=== PATIENT | male | born 1935 | race Asian ===

== ENCOUNTER 2017-01-04 09:12 | Inpatient (IN) | payer OTHER, MEDICARE ==
[2017-01-04] MEDS ORDERED: ceFAZolin 2 GM/DEXTROSE 100 ML IV ONE (09:20)
[2017-01-04] MEDS ORDERED: diphenhydrAMINE 25 MG CAP PO ONE ×2 (09:20→10:10)
[2017-01-04] MEDS ORDERED: NS 1,000 ML IV ONE (09:20)
[2017-01-04] MEDS ORDERED: DIAZEPAM 5 MG TAB PO ONE (09:20)
[2017-01-04] MEDS ORDERED: BACITRACIN IRRIGATION/NS 50,000 UNITS/1,000 ML BTL IRR ONE (09:20)
--- NOTE | 2017-01-04 09:56 | CPEKG ---
Heart Rate: 57 RR Interval: 1053 P-R Interval: 168 QRSD Interval: 84 QT Interval: 448 QTC Interval: 437 P [place]: 17 QRS [place]: 7 T Wave [place]: 52 EKG Severity - NORMAL ECG - EKG Impression: SINUS RHYTHM Electronically Signed By: Louie Ann 04-Jan-2017 16:25:36
[2017-01-04] MEDS ORDERED: DIAZEPAM 5 MG TAB ONE (10:11)
[2017-01-04 10:22] LABS: % IMMATURE GRANULYOCYTES 0.4 % (0.0-1.1); ABSOLUTE IMMATURE GRANULOCYTES 0.03 10^3/uL (0.00-0.10); ADD DIFF? NO; ADD MORPH? NO; ADD SCAN? NO; ATYPICAL LYMPHOCYTE FLAG 0 (0-99); FRAGMENT RBC FLAG 0 (0-99); HEMATOCRIT 44.2 % (40.0-51.0); HEMOGLOBIN 15.2 g/dL (13.7-17.5); LEFT SHIFT FLG 10 (0-99); LIPEMIA HEMOLYSIS FLAG 90 (0-99); MEAN CELL HEMOGLOBIN 33.8 pg (27.9-34.1); MEAN CELL HEMOGLOBIN CONCENTR. 34.4 g/dL (32.4-36.7); MEAN CELL VOLUME 98.2 fL (81.5-99.8); PLATELET CLUMPS FLAG 0 (0-99); PLATELET COUNT 238 10^3/uL (150-400); RED CELL DISTRIBUTION WIDTH 12.3 % (11.5-15.2)
[2017-01-04 10:33] LABS: INR 1.04 (0.83-1.16); PROTIME(PATIENT) 13.5 SEC (12.0-15.0)
[2017-01-04 10:36] LABS: ANION GAP 9 mEq/L (8-16); CALCIUM 9.2 mg/dL (8.5-10.4); CARBON DIOXIDE 25 mEq/l (22-31); CHLORIDE 108 mEq/L (97-110); CREATININE 1.1 mg/dL (0.7-1.3); GLOMERULAR FILTRATION RATE > 60; GLUCOSE 102 mg/dL (70-100); POTASSIUM 4.4 mEq/L (3.5-5.2); SODIUM 142 mEq/L (134-144)
[2017-01-04] MEDS ORDERED: MIDAZOLAM 2 MG/2 ML VIAL ONE ×2 (10:48→12:21)
[2017-01-04] MEDS ORDERED: fentaNYL 100 MCG/2 ML INJ ONE ×2 (10:48→12:21)
[2017-01-04] MEDS ORDERED: BUPIVACAINE 0.5% 30 ML SDV ONE ×2 (10:48→12:21)
[2017-01-04] MEDS ORDERED: LIDOCAINE 1% 30 ML SDV ONE ×2 (10:48→12:21)
--- NOTE | 2017-01-04 13:48 | CPEKG ---
Heart Rate: 63 RR Interval: 952 P-R Interval: 176 QRSD Interval: 80 QT Interval: 420 QTC Interval: 430 P [place]: 17 QRS [place]: -9 T Wave [place]: 38 EKG Severity - NORMAL ECG - EKG Impression: SINUS RHYTHM Electronically Signed By: Louie Ann 04-Jan-2017 16:25:40
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
[2017-01-04] MEDS: ACETAMINOPHEN 325 MG TAB PO PRN (20:16)
[2017-01-05 05:06] LABS: % IMMATURE GRANULYOCYTES 0.4 % (0.0-1.1); ABSOLUTE IMMATURE GRANULOCYTES 0.04 10^3/uL (0.00-0.10); ADD DIFF? NO; ADD MORPH? NO; ADD SCAN? NO; ATYPICAL LYMPHOCYTE FLAG 0 (0-99); FRAGMENT RBC FLAG 0 (0-99); HEMATOCRIT 40.5 % (40.0-51.0); HEMOGLOBIN 13.8 g/dL (13.7-17.5); LEFT SHIFT FLG 10 (0-99); LIPEMIA HEMOLYSIS FLAG 90 (0-99); MEAN CELL HEMOGLOBIN 34.3 pg (27.9-34.1); MEAN CELL HEMOGLOBIN CONCENTR. 34.1 g/dL (32.4-36.7); MEAN CELL VOLUME 100.7 fL (81.5-99.8); MEAN PLATELET VOLUME 10.5 fL (8.7-11.7); PLATELET CLUMPS FLAG 0 (0-99); PLATELET COUNT 190 10^3/uL (150-400); RED BLOOD CELL COUNT 4.02 10^6/uL (4.40-6.38); RED CELL DISTRIBUTION WIDTH 12.3 % (11.5-15.2)
[2017-01-05 05:20] LABS: ANION GAP 7 mEq/L (8-16); CALCIUM 8.6 mg/dL (8.5-10.4); CARBON DIOXIDE 25 mEq/l (22-31); CHLORIDE 107 mEq/L (97-110); GLOMERULAR FILTRATION RATE > 60; GLUCOSE 126 mg/dL (70-100); SODIUM 139 mEq/L (134-144)
[2017-01-05] MEDS: ACETAMINOPHEN 325 MG TAB PO PRN ×3 (07:01→18:26)
[2017-01-05] MEDS: ASPIRIN 81 MG CHEWABLE TAB PO SCH (09:28)
[2017-01-05] MEDS: CALCIUM CARBONATE 500 MG TAB PO SCH (09:28)
[2017-01-05] MEDS: CHOLECALCIFEROL VIT D3 1,000 UNITS TAB PO SCH (09:28)
[2017-01-05] MEDS: CYANO/VITAMIN B12 100 MCG TAB PO SCH (09:28)
[2017-01-05] MEDS ORDERED: IOPAMIDOL (ISOVUE 370) 100 ML BTL IV ONE (10:13)
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
[2017-01-05] MEDS: METOPROLOL TARTRATE 25 MG TAB PO SCH ×2 (12:45→20:03)
[2017-01-05] MEDS ORDERED: CEPACOL LOZENGE PO ONE (13:59)
[2017-01-05] MEDS: IBUPROFEN 200 MG TAB PO PRN (20:03)
[2017-01-05] MEDS ORDERED: HYDROCODONE/APAP 5/325 TAB PO PRN (23:45)
[2017-01-05] MEDS: ZOLPIDEM TARTRATE 5 MG TAB PO SCH (23:51)
[2017-01-06] MEDS: IBUPROFEN 200 MG TAB PO PRN (02:26)
[2017-01-06] MEDS: ASPIRIN 81 MG CHEWABLE TAB PO SCH (08:09)
[2017-01-06] MEDS: CHOLECALCIFEROL VIT D3 1,000 UNITS TAB PO SCH (08:09)
[2017-01-06] MEDS: CALCIUM CARBONATE 500 MG TAB PO SCH (08:09)
[2017-01-06] MEDS: METOPROLOL TARTRATE 25 MG TAB PO SCH (08:09)
[2017-01-06] MEDS: CYANO/VITAMIN B12 100 MCG TAB PO SCH (08:09)
[2017-01-06] MEDS ORDERED: ONDANSETRON 4 MG/2 ML VIAL ONE (09:05)
[2017-01-06] MEDS ORDERED: ONDANSETRON 4 MG/2 ML VIAL IVP ONE (10:00)
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
[2017-01-06] MEDS ORDERED: oxyCODONE IR 5 MG TAB PO ONE (11:00)
[2017-01-06] MEDS ORDERED: NS 1,000 ML IV SCH (11:30)
[2017-01-06] MEDS ORDERED: KETOROLAC 30 MG/1 ML SDV IVP ONE ×2 (11:58→15:30)
--- NOTE | 2017-01-06 12:09 | GCON ---
[f rep st] CONSULTATION DATE OF CONSULTATION: 01/06/2017 REFERRING PHYSICIAN: Abhishek Ramon MD ADDITIONAL REFERRING PHYSICIAN: Mason Pedro MD The patient was seen at the request of Dr. Ramon and Dr. Mason Pedro. IMPRESSION: 1. 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 2. Moderate enlargement of the ascending aorta. 3. Status post dual-chamber pacemaker placed by Dr. Ramon for bradyarrhythmia, symptomatic. RECOMMENDATIONS: This is a very pleasant, well informed, and highly functioning gentleman, accompan ied by his family. Had a 45-minute discussion regarding the etiology and management of his thoracic aneurysm. At the present time, it is asymptomatic as you would anticipate. It is somewhat calcifi ed with significant mural thrombus. There are no flow-limiting lesions identified in the arch vesse ls. I advised him that, at that size, there is some 4% to 6% risk of rupture, although given its calcifi ed nature, it may remain relatively stable. I advised him that we would do pelvic CTs to look at hi s access vessels for potential endovascular repair, however I do believe it would require de-branchi ng of the arch through a sternotomy, off pump, as a preparatory procedure, if in fact, he agrees and we choose to offer him surgery. The other option is serial observation, and I will review it with several colleagues to obtain their opinion as well. I did advise him that we would review his echo from [facility] to see if there are any significant cardiac valvular issues, and if we w ere to proceed with any sort of intervention, we would want a left heart catheterization in order to make sure he does not have coronary disease. I suspect the route of least morbidity and mortality would be de-branching and transfemoral endovascular replacement versus extensive proximal descending and transverse arch replacement under circulatory arrest in this 81-year-old gentleman. Again, I w ill seek other opinions from colleagues of [facility] at the [facility]. CHIEF COMPLAINT: This gentleman had a chest x-ray as part of his evaluation and treatment for perma nent pacemaker need. He was noted to have a transverse arch aneurysm on the chest x-ray and CT scan was obtained appropriately. 3D reconstruction does reveal a 4.2 to 4.4 cm ascending aorta, which m aintains that until approximately the left carotid artery, where it begins to dilate out to a maximu m dimension of 6.2 to 6.5 cm, internal versus external dimensions, in the proximal descending thorac ic aorta, before rapidly tapering back down in the proximal to mid descending thoracic aorta, where it measures approximately 3 cm. There is extensive laminated thrombus within the aneurysm. He does have compression of the innominate vein, but no caval syndrome or obstructive venous physiology not ed on his exam. MEDICAL HISTORY: Only positive for a tonsillectomy 40 years ago. SOCIAL HISTORY: He drinks 1-2 drinks per day, either beer or whiskey, and quit smoking 40 years ago and was a moderate smoker prior to that, stopping in his early 40s. He is retired from [employer] business, accompanied by his and 2 daughters, who are very attentive, informed, and have asked appropriate questions. PHYSICAL EXAMINATION: GENERAL: This is a well-developed 81-year-old gentleman, appears markedly yo mainor than stated age. VITAL SIGNS: Blood pressure is 126/86. Respirations 16, O2 saturation 92% on room air. HEENT: Normocephalic. PERRLA, EOMI. NECK: Without bruit, adenopathy or thyromegaly . HEART: Rate is regular. LUNGS: Clear. ABDOMEN: Soft, nontender. Bowel sounds are active. R ECTAL AND GENITAL: Deferred. NEUROLOGIC: He is oriented x3. Mood and affect are appropriate. EX TREMITIES: Pedal pulses were 3+ and symmetrical. Femoral pulses were 3+ and symmetrical. We will obtain a pelvic CT, and review his echo prior to proceeding any further. He can be discharg ed from my perspective, I do not believe beta-blockers in this patient adds any benefit and only cre ates fatigue in him, and so, therefore, I will recommend that we discontinue those. /[id number]/MODL
[2017-01-06] MEDS ORDERED: IOPAMIDOL (ISOVUE 370) 100 ML BTL IV ONE ×2 (12:10→12:57)
[2017-01-06] MEDS ORDERED: ACETAMINOPHEN 325 MG TAB PO PRN (16:40)
[2017-01-06] MEDS: ACETAMINOPHEN/ASA/CAFFEINE 1 EACH TAB PO PRN ×2 (16:51→23:37)
[2017-01-06] MEDS: ZOLPIDEM TARTRATE 5 MG TAB PO SCH (21:32)
[2017-01-06] MEDS: ONDANSETRON 4 MG/2 ML VIAL IVP PRN (21:32)
[2017-01-06] MEDS: FLUTICASONE NASAL 120 SPRAYS/16 GM MDI EACHNARE SCH (23:38)
[2017-01-07] MEDS: ONDANSETRON 4 MG/2 ML VIAL IVP PRN (03:08)
[2017-01-07 03:14] VITALS: RESP 18
[2017-01-07 08:11] VITALS: PULSE 60
[2017-01-07 08:23] LABS: ANION GAP 6 mEq/L (8-16); CALCIUM 8.4 mg/dL (8.5-10.4); CARBON DIOXIDE 24 mEq/l (22-31); CHLORIDE 105 mEq/L (97-110); CREATININE 0.9 mg/dL (0.7-1.3); GLOMERULAR FILTRATION RATE > 60; GLUCOSE 103 mg/dL (70-100); POTASSIUM 4.3 mEq/L (3.5-5.2); SODIUM 135 mEq/L (134-144)
--- NOTE | 2017-01-07 08:38 | CPEKG ---
Heart Rate: 61 RR Interval: 984 P-R Interval: 160 QRSD Interval: 80 QT Interval: 412 QTC Interval: 415 P [place]: 48 QRS [place]: 23 T Wave [place]: 55 EKG Severity - NORMAL ECG - EKG Impression: SINUS RHYTHM Electronically Signed By: Louie Ann 07-Jan-2017 13:21:16
[2017-01-07] MEDS: ACETAMINOPHEN/ASA/CAFFEINE 1 EACH TAB PO PRN ×2 (08:50→14:50)
[2017-01-07] MEDS: CYANO/VITAMIN B12 100 MCG TAB PO SCH (08:50)
[2017-01-07] MEDS: CHOLECALCIFEROL VIT D3 1,000 UNITS TAB PO SCH (08:50)
[2017-01-07] MEDS: CALCIUM CARBONATE 500 MG TAB PO SCH (08:50)
[2017-01-07] MEDS: ASPIRIN 81 MG CHEWABLE TAB PO SCH (08:50)
[2017-01-07] MEDS: FLUTICASONE NASAL 120 SPRAYS/16 GM MDI EACHNARE SCH (08:52)
[2017-01-07] MEDS ORDERED: IOPAMIDOL (ISOVUE 370) 100 ML BTL IV ONE (10:23)
[2017-01-07 11:23] VITALS: BP 122/66; TEMP 97.7; O2SAT 95
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
== END 2017-01-07 15:05 | disposition home or self-care (01) | DRG 244 ==
LOC: FCATH 09:12 → F2W 12:31 → OBSVTOIN 01-05 10:38 → F2W 01-05 22:39
PROVIDERS: ADMIT Internal Medicine Cardiovascular Disease; ATTEND Internal Medicine Cardiovascular Disease
DX: I44.30 Unspecified atrioventricular block (principal); I71.2 Thoracic aortic aneurysm, without rupture; R51 Headache; Z87.891 Personal history of nicotine dependence
CPT/HCPCS: C1769; C1785; C1898; J0690; J1885; J2250; J2405; J3010; Q9967

== ENCOUNTER → 2017-01-09 | Outpatient (CLI) | payer OTHER, MEDICARE ==
--- NOTE | 2017-01-09 14:42 | CPEEG ---
[f rep st] ELECTROENCEPHALOGRAM DATE OF STUDY: 01/09/2017 INTERPRETATION: Normal EEG during wakefulness and sleep. There were no potentially epileptogenic abnormalities present in the recording. REPORT: This EEG contains 10 Hz alpha rhythm in the posterior head regions. There was no abnormal activation at rest or during photic stimulation. Patient became drowsy and fell asleep during the study. There was no abnormal activation during drowsiness, sleep or during times of arousal. /[id number]/MODL MTDD
== END ==
LOC: FCPNEURO 10:47
PROVIDERS: ATTEND Psychiatry & Neurology Neurology
DX: R40.4 Transient alteration of awareness (principal)

== ENCOUNTER → 2017-01-14 | Outpatient (CLI) | payer OTHER, MEDICARE ==
[~2017-01-14] MED LIST: IOPAMIDOL (ISOVUE 370) 100 ML BTL IV ONE
== END ==
LOC: FIMAGING 12:13
PROVIDERS: ATTEND Internal Medicine
DX: R06.02 Shortness of breath (principal); I71.9 Aortic aneurysm of unspecified site, without rupture
CPT/HCPCS: 71275; Q9967

== ENCOUNTER 2017-01-22 12:52 | Inpatient (IN) | payer OTHER, MEDICARE ==
[2017-01-22] MEDS ORDERED: NS 500 ML IV ONE (13:15)
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
--- NOTE | 2017-01-22 13:24 | CPEKG ---
Heart Rate: 60 RR Interval: 1000 P-R Interval: 208 QRSD Interval: 82 QT Interval: 420 QTC Interval: 420 P [place]: -34 QRS [place]: -10 T Wave [place]: 52 EKG Severity - NORMAL ECG - EKG Impression: SINUS RHYTHM Electronically Signed By: Bruce Reardon 22-Jan-2017 13:46:34
[2017-01-22 13:36] LABS: % IMMATURE GRANULYOCYTES 0.7 % (0.0-1.1); ABSOLUTE IMMATURE GRANULOCYTES 0.06 10^3/uL (0.00-0.10); ADD DIFF? NO; ADD MORPH? NO; ADD SCAN? NO; ATYPICAL LYMPHOCYTE FLAG 10 (0-99); FRAGMENT RBC FLAG 0 (0-99); HEMATOCRIT 46.2 % (40.0-51.0); HEMOGLOBIN 15.5 g/dL (13.7-17.5); LEFT SHIFT FLG 0 (0-99); LIPEMIA HEMOLYSIS FLAG 80 (0-99); MEAN CELL HEMOGLOBIN 33.2 pg (27.9-34.1); MEAN CELL HEMOGLOBIN CONCENTR. 33.5 g/dL (32.4-36.7); MEAN CELL VOLUME 98.9 fL (81.5-99.8); MEAN PLATELET VOLUME 9.5 fL (8.7-11.7); PLATELET CLUMPS FLAG 10 (0-99); PLATELET COUNT 279 10^3/uL (150-400); RED BLOOD CELL COUNT 4.67 10^6/uL (4.40-6.38)
[2017-01-22 13:45] LABS: ALANINE AMINOTRANSFERASE 54 IU/L (21-72); ALBUMIN 4.4 g/dL (3.5-5.0); ALKALINE PHOSPHATASE 77 IU/L (38-126); ANION GAP 9 mEq/L (8-16); APTT 27.9 SEC (23.0-38.0); ASPARTATE AMINOTRANSFERASE 29 IU/L (17-59); BILIRUBIN,TOTAL 0.9 mg/dL (0.1-1.4); BILIRUBIN-CONJUGATED 0.5 mg/dL (0.0-0.5); BILIRUBIN-UNCONJUGATED 0.4 mg/dL (0.0-1.1); CALCIUM 9.7 mg/dL (8.5-10.4); CARBON DIOXIDE 26 mEq/l (22-31); CHLORIDE 108 mEq/L (97-110); CREATININE 1.1 mg/dL (0.7-1.3); GLOMERULAR FILTRATION RATE > 60; GLUCOSE 100 mg/dL (70-100); INR 1.01 (0.83-1.16); PROTIME(PATIENT) 13.2 SEC (12.0-15.0); SODIUM 143 mEq/L (134-144); TOTAL PROTEIN 7.6 g/dL (6.3-8.2)
[2017-01-22 13:54] LABS: TROPONIN I < 0.012 ng/mL (0-0.034)
[2017-01-22] MEDS ORDERED: guaiFENesin 600 MG TAB.ER PO PRN (17:47)
[2017-01-22] MEDS ORDERED: ONDANSETRON DISINTEGRATING 4 MG TAB PO PRN (17:52)
[2017-01-22] MEDS ORDERED: ONDANSETRON 4 MG/2 ML VIAL IVP PRN (17:52)
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
[2017-01-23] MEDS ORDERED: ASPIRIN EC 325 MG TAB PO ONE ×2 (06:59→07:30)
[2017-01-23] MEDS ORDERED: DIAZEPAM 5 MG TAB PO ONE (06:59)
[2017-01-23] MEDS ORDERED: NS 1,000 ML IV ONE (06:59)
[2017-01-23] MEDS ORDERED: diphenhydrAMINE 25 MG CAP PO ONE ×2 (06:59→07:30)
[2017-01-23] MEDS ORDERED: FAMOTIDINE 20 MG TAB PO ONE (06:59)
[2017-01-23] MEDS ORDERED: fentaNYL 100 MCG/2 ML INJ ONE (07:25)
[2017-01-23] MEDS ORDERED: LIDOCAINE 1% 300 MG/30 ML SDV ONE (07:25)
[2017-01-23] MEDS ORDERED: MIDAZOLAM 2 MG/2 ML VIAL ONE ×2 (07:25→08:47)
[2017-01-23] MEDS ORDERED: IOPAMIDOL (ISOVUE-370) 150 ML BTL IV ONE ×2 (07:25→08:52)
[2017-01-23] MEDS ORDERED: FAMOTIDINE 20 MG TAB ONE (07:30)
[2017-01-23] MEDS ORDERED: DIAZEPAM 5 MG TAB ONE (07:30)
[2017-01-23] MEDS ORDERED: Herbals/Supplements -Info Only PO SCH (09:00)
[2017-01-23] MEDS ORDERED: ATROPINE SULFATE 1 MG/10 ML SYR ONE (09:31)
[2017-01-23] MEDS ORDERED: ONDANSETRON 4 MG/2 ML VIAL IVP PRN (11:12)
[2017-01-23] MEDS ORDERED: OXYCODONE/APAP 5/325 TAB PO PRN (11:12)
[2017-01-23] MEDS ORDERED: ATROPINE SULFATE 1 MG/10 ML SYR IVP PRN (11:12)
[2017-01-23] MEDS ORDERED: NITROGLYCERIN 0.4 MG BTL SL PRN (11:12)
[2017-01-23] MEDS: ASPIRIN EC 81 MG TAB PO SCH (11:13)
--- NOTE | 2017-01-23 11:47 | GPN ---
[f rep st] PROCEDURE NOTE DATE OF PROCEDURE: 01/23/2017 PROCEDURE PERFORMED: 1. Diagnostic left heart catheterization. 2. Left coronary angiography. 3. Right coronary angiography. 4. Left ventriculogram. 5. Right common femoral artery angiography. INDICATIONS FOR PROCEDURE: This patient is a pleasant 81-year-old gentleman who was recently discov ered to have a large thoracic aortic aneurysm measuring 6.2 cm. Diagnostic left heart catheterizati on in anticipation of surgical repair of his thoracic aortic aneurysm. PROCEDURE IN DETAIL: After informed consent was obtained, the patient was brought to the cardiac ca theterization lab where he was prepped and draped in a sterile fashion. Using 1% lidocaine, the rig ht groin was anesthetized. Using a modified Seldinger technique, a 6-[place] catheter was placed into the right common femoral a rtery without complications. A JL4 catheter was originally used to attempt to cannulate the left ma in unsuccessfully. Ultimately, a JL5 catheter was used to cannulate the left main. Images of the l eft coronary anatomy obtained were in multiple projections. The JL5 catheter was exchanged over a guidewire for a JR4 catheter. JR4 catheter was used to take i mages of the right coronary anatomy in multiple projections. The JR4 catheter was removed over a guidewire. A JL4 catheter was used to cross the aortic valve. LVEDP was assessed. Left ventricular function was evaluated. Angled pigtail catheter was removed o coy a guidewire. Angiography of the right common femoral artery demonstrates appropriately placed c atheter at the proximal third of the femoral head. There is a high bifurcation of the femoral arter y and resultant manual pressure without closure device. FINDINGS: 1. Left main normal size and caliber. It bifurcates into a left anterior descending and left circu mflex coronary artery. There is no evidence of coronary disease within the left main. 2. Left anterior descending artery demonstrates some mild lumen irregularities through the mid segm ent of the vessel. There is a moderate-sized first and second diagonal branch. There is no evidenc e of coronary disease within the diagonal branches. 3. Left circumflex artery is a nondominant vessel. There are mild luminal irregularities within th e mid segment of the circumflex vessel. 4. The right coronary artery is a large caliber dominant vessel that bifurcates into PDA and PLV br anches. There is no evidence of coronary disease within the right coronary artery. HEMODYNAMICS: LVEF 60% to 65%. LVEDP 21 mmHg, 9 mm gradient across the aortic valve. CONCLUSION: 1. Mild luminal irregularities within the left anterior descending and circumflex vessels. 2. No flow-limiting coronary artery disease. 3. No indication for coronary artery bypass grafting during upcoming thoracic aortic aneurysm surge ry. 4. Normal left ventricular function. /[id number]/MODL
[2017-01-23] MEDS ORDERED: NS 500 ML IV ONE (11:58)
[2017-01-23] MEDS ORDERED: NS 1,000 ML IV SCH (12:00)
[2017-01-23] MEDS ORDERED: IOPAMIDOL (ISOVUE 370) 100 ML BTL IV ONE (12:19)
[2017-01-23] MEDS: HYDROCODONE/APAP 5/325 TAB PO PRN (12:57)
[2017-01-23] MEDS ORDERED: NON-FORMULARY NEW DRUG PO PRN (14:37)
[2017-01-23] MEDS: FLUTICASONE NASAL 120 SPRAYS/16 GM MDI EACHNARE SCH (16:42)
[2017-01-23] MEDS: CETIRIZINE 10 MG TAB PO SCH (16:58)
[2017-01-23] MEDS: CHOLECALCIFEROL VIT D3 1,000 UNITS TAB PO SCH (16:58)
[2017-01-24] MEDS: FLUTICASONE NASAL 120 SPRAYS/16 GM MDI EACHNARE SCH (07:23)
[2017-01-24] MEDS: HYDROCODONE/APAP 5/325 TAB PO PRN (07:58)
[2017-01-24] MEDS: CETIRIZINE 10 MG TAB PO SCH (07:59)
[2017-01-24] MEDS: CHOLECALCIFEROL VIT D3 1,000 UNITS TAB PO SCH (07:59)
[2017-01-24] MEDS: ASPIRIN EC 81 MG TAB PO SCH (07:59)
--- NOTE | 2017-01-24 10:58 | SOAPPROG ---
ELIZABETH Progress Note Assessment/Plan: Assessment: Plan: 01/24/17 10:47 multiple visits pt and family, seen in prior consults in and outpatient. [facility] w/ o obs ds, minimal aortic v thickening now L shoulder pain and L facial pain, mild hoarseness, came in through ER w associated hypotension. VSS since admission CTA unchanged but I believe symptoms due to aneurysm d/w L Sveenson at [facility], agrees elephant trunk w subsequent endograft, will perform simultaneously unless unstablr, bleeding, etc the several days later risk of major [employer] injury, 5% offered transfer to [facility] if they prefer advised I have done these procedures successfully but there are people at tertiary care facilities with more experience and would be happy to arrange transfer if that is their risk TEVAR grafts ordered and will be available in OR as will IR/Dr Jackson EEG monitoring arranged Objective: Vital Signs Temp Pulse Resp BP Pulse Ox 37.1 C 60 21 H 120/88 H 98 01/24/17 07:50 01/24/17 07:50 01/24/17 07:50 01/24/17 07:50 01/24/17 07:50 01/23/17 01/24/17 01/25/17 05:59 05:59 05:59 Intake Total 200 440 Balance 200 440 PT 13.2 SEC (12.0-15.0) 01/22/17 12:56 INR 1.01 (0.83-1.16) 01/22/17 12:56 ICD10 Worksheet Patient Problems: Problems Problem Status Onset Hypotension Acute Pre-syncope Acute Pacemaker Acute
--- NOTE | 2017-01-24 11:01 | HOSPPROG ---
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 case discussed w dr pelaez Objective: Vital Signs Temp Pulse Resp BP Pulse Ox 37.1 C 60 21 H 120/88 H 98 01/24/17 07:50 01/24/17 07:50 01/24/17 07:50 01/24/17 07:50 01/24/17 07:50 01/23/17 01/24/17 01/25/17 05:59 05:59 05:59 Intake Total 200 440 Balance 200 440 PT 13.2 SEC (12.0-15.0) 01/22/17 12:56 INR 1.01 (0.83-1.16) 01/22/17 12:56 - Physical Exam Constitutional: no apparent distress, appears nourished Eyes: PERRL, anicteric sclera Ears, Nose, Mouth, Throat: moist mucous membranes, hearing normal Cardiovascular: regular rate and rhythym, no murmur, rub, or gallop Respiratory: no respiratory distress, no rales or rhonchi Gastrointestinal: normoactive bowel sounds, soft, non-tender abdomen Genitourinary: no bladder fullness, No garzon in urethra Skin: warm, normal color Musculoskeletal: full muscle strength, no muscle tenderness Neurologic: AAOx3 ICD10 Worksheet Patient Problems: Problems Problem Status Onset Hypotension Acute Pre-syncope Acute Pacemaker Acute
[2017-01-24 14:14] LABS: HEMOGLOBIN A1C 5.6 % (4.0-6.0)
[2017-01-24] MEDS ORDERED: CHLORHEXIDINE GLUC HIBICLENS 118 ML BTL TP SCH (21:00)
[2017-01-24] MEDS: SENNOSIDES/DOCUSATE SODIUM TAB PO SCH (21:49)
[2017-01-25 04:37] LABS: HEMOGLOBIN 13.7 g/dL (13.7-17.5); MEAN CELL HEMOGLOBIN 33.3 pg (27.9-34.1); MEAN CELL HEMOGLOBIN CONCENTR. 33.4 g/dL (32.4-36.7); MEAN CELL VOLUME 99.5 fL (81.5-99.8); RED BLOOD CELL COUNT 4.12 10^6/uL (4.40-6.38); RED CELL DISTRIBUTION WIDTH 11.9 % (11.5-15.2)
[2017-01-25 04:45] LABS: ANION GAP 9 mEq/L (8-16); CARBON DIOXIDE 27 mEq/l (22-31); CHLORIDE 106 mEq/L (97-110); CREATININE 1.3 mg/dL (0.7-1.3); GLOMERULAR FILTRATION RATE 53; GLUCOSE 91 mg/dL (70-100); POTASSIUM 4.3 mEq/L (3.5-5.2); SODIUM 142 mEq/L (134-144)
[2017-01-25] MEDS ORDERED: NOREPINEPHRINE BITARTRATE 16 MG in NS 250 ML IV ONE (06:00)
[2017-01-25] MEDS ORDERED: INSULIN REGULAR HUMAN 100 UNIT in NS 100 ML IV ONE (06:00)
[2017-01-25] MEDS ORDERED: CITRATE DEXTROSE SOLN 500 ML BAG MISC ONE (06:00)
[2017-01-25] MEDS ORDERED: MANNITOL 25% 12.5 GM/50 ML VIAL IV ONE (06:00)
[2017-01-25] MEDS ORDERED: PHENYLEPHRINE HCL 50 MG in NS 250 ML IV ONE (06:00)
[2017-01-25] MEDS ORDERED: SODIUM BICARBONATE 20 MEQ, LIDOCAINE 1% 10 ML in NORMOSOL-R 1,000 ML MISC ONE (06:00)
[2017-01-25] MEDS ORDERED: ceFAZolin 2 GM/DEXTROSE 100 ML IV ONE (06:00)
[2017-01-25] MEDS ORDERED: AMINOCAPROIC ACID 5 GM/20 ML VIAL IV ONE (06:00)
[2017-01-25] MEDS ORDERED: MILRINONE/DEXTROSE/100 ML BAG IV ONE (06:20)
[2017-01-25] MEDS ORDERED: CALCIUM CHLORIDE 1 GM/10 ML INJ ONE ×2 (06:20→07:20)
[2017-01-25] MEDS ORDERED: ALBUMIN 5% 250 ML BOTTLE IV ONE ×2 (06:20→15:43)
[2017-01-25] MEDS ORDERED: NA BICARBONATE 50 MEQ/50 ML VIAL ONE ×2 (06:20→16:57)
[2017-01-25] MEDS ORDERED: LIDOCAINE 2% 100 MG/5 ML SYR ONE ×2 (06:20→07:20)
[2017-01-25] MEDS ORDERED: PROTAMINE SULFATE 50 MG/5 ML VIAL IVP ONE (06:20)
[2017-01-25] MEDS ORDERED: POTASSIUM Cl (KCl) 20 MEQ/50 ML BAG IV ONE (06:20)
[2017-01-25] MEDS ORDERED: AMINOCAPROIC ACID 5 GM/20 ML VIAL ONE (06:20)
[2017-01-25] MEDS ORDERED: DOPamine/DEXTROSE/250 ML BAG IV ONE (06:20)
[2017-01-25] MEDS ORDERED: ceFAZolin 1 GM VIAL ONE ×3 (06:21→13:57)
[2017-01-25] MEDS ORDERED: methylPREDNISolone SOD SUCC 1 GM/8 ML VIAL ONE (06:21)
[2017-01-25] MEDS ORDERED: AMIODARONE HCL 150 MG/3 ML VIAL ONE (06:21)
[2017-01-25] MEDS ORDERED: CITRATE DEXTROSE SOLN 500 ML BAG ONE ×3 (06:21→15:25)
[2017-01-25] MEDS ORDERED: ADENOSINE 6 MG/2 ML VIAL ONE (06:21)
[2017-01-25] MEDS ORDERED: MAGNESIUM SULFATE 1 GM/2 ML VIAL ONE (06:21)
[2017-01-25] MEDS ORDERED: HEPARIN 10,000 UNIT/10 ML MDV ONE ×2 (06:21→12:30)
[2017-01-25] MEDS ORDERED: niCARdipine/NACL/200 ML BAG IV ONE (06:21)
[2017-01-25] MEDS ORDERED: MIDAZOLAM 2 MG/2 ML VIAL ONE ×4 (07:11→07:18)
[2017-01-25] MEDS ORDERED: PROPOFOL/EMULSION 500 MG/50 ML BOTTLE IV ONE ×2 (07:19→11:37)
[2017-01-25] MEDS ORDERED: SUFentanil 250 MCG/5 ML AMP ONE (07:19)
[2017-01-25] MEDS ORDERED: ONDANSETRON 4 MG/2 ML VIAL ONE (07:20)
[2017-01-25] MEDS ORDERED: ROCURONIUM 100 MG/10 ML VIAL ONE ×4 (07:20)
[2017-01-25] MEDS ORDERED: methylPREDNISolone SOD SUCC 125 MG/2 ML VIAL ONE ×2 (07:20)
[2017-01-25] MEDS ORDERED: PHENYLEPHRINE HCL 100 MCG/ML SYR ONE ×4 (07:20→14:12)
[2017-01-25] MEDS ORDERED: LIDOCAINE HCL 160 MG/4 ML LTA KIT TP ONE (07:21)
[2017-01-25] MEDS ORDERED: VANCOMYCIN 1 GM VIAL ONE (08:45)
--- NOTE | 2017-01-25 08:50 | GCON ---
[f rep st] CONSULTATION DATE OF CONSULTATION: 01/25/2017 HISTORY OF PRESENT ILLNESS: This is a gentleman who I have reviewed his history and physical from Erendira Geller, and it appears that there is no documentation of any genitourinary issues or prior proced ures based on the admission history and physical, other than his cardiovascular disease. After he u nderwent general anesthesia and preparation for his cardiovascular surgery, there was an attempt to place in a catheter, and it was met with obstruction, so I was asked to do an intraoperative assessm ent and attempt to place catheter. As noted, I have reviewed his chart detailed, history and physic al, past history, medications, and disease entities. He has had a urine culture done on 01/19/2015, and that culture revealed no growth after 48 hours. On laboratory values, he has had a PSA as of 0 05/18/2016 that was 0.83, and vitamin D level of 67.7. He also had a PSA on 04/30/2014 of 0.58. Mos t recent creatinine was 1.3 on 01/25/2017. PHYSICAL EXAM: He was asleep. He had no abdominal distention. No suprapubic distention. He was u ncircumcised male, and there was no blood at the meatus. The scrotum was normal. Testicle de scended. Rectal exam was not done because of the patient's situation in the cardiac room position o n the table. ASSESSMENT: My suggestion is that he undergo cystoscopy with attempted assessment of the lower urin amina tract, then placement of the catheter if possible. /[id number]/MODL
[2017-01-25] MEDS ORDERED: ESMOLOL HCL 100 MG/10 ML VIAL IV ONE (09:03)
[2017-01-25] MEDS ORDERED: LABETALOL HCL 5 MG/ML 20 ML MDV ONE (09:07)
[2017-01-25 09:23] LABS: COLOR YELLOW; LEUKOCYTE ESTERASE,URINE NEGATIVE (NEGATIVE); NITRITE,URINE NEGATIVE (NEGATIVE)
[2017-01-25] MEDS ORDERED: MINERAL OIL 10 ML VIAL ONE (11:16)
[2017-01-25] MEDS ORDERED: epHEDrine SULFATE 10 MG/ML SYR ONE ×2 (13:14)
--- NOTE | 2017-01-25 13:36 | GOP ---
[f rep st] OPERATIVE REPORT DATE OF OPERATION: 01/25/2017 SURGEON: Shmuel Negrete MD PREOPERATIVE DIAGNOSIS: Obstructed lower urinary tract. POSTOPERATIVE DIAGNOSIS: Bulbar urethral stricture. PROCEDURE PERFORMED: FINDINGS: DESCRIPTION OF PROCEDURE: After patient was prepped and draped in normal sterile fashion in supine position, the flexible cystoscope was passed, and he had a bulbar urethral stricture that was gradua lly dilated and negotiated and then could get into the bladder. He had mild BPH. Bladder was inves tigated briefly and had no tumors or stones. At that point, after dilation of the bulbar urethral s tricture, I was able to pass the 16 Hernández cardiovascular temperature catheter. A 10 cc balloon infl ated, and the urine was clear. He had a prior urine culture and I have asked that they send a urine culture again today. He was given antibiotics at the time of the procedure, and I will recommend t hat he have the catheter remain until he is ambulatory and then they can pull the catheter at the di scretion of the cardiovascular surgical team. /[id number]/MODL
[2017-01-25] MEDS ORDERED: PROPOFOL 200 MG/20 ML VIAL ONE (14:37)
[2017-01-25] MEDS ORDERED: IOPAMIDOL (ISOVUE-370) 150 ML BTL IV ONE (15:29)
[2017-01-25] MEDS ORDERED: IOPAMIDOL (ISOVUE-300) 100 ML BTL ONE (15:29)
[2017-01-25] MEDS ORDERED: MAGNESIUM SULF 2 GM/WATER 50 ML BAG IV ONE (15:43)
[2017-01-25] MEDS ORDERED: PANTOPRAZOLE SODIUM 40 MG in NS 100 ML IV ONE (15:55)
[2017-01-25] MEDS ORDERED: MAGNESIUM SULF 2 GM/WATER 50 ML IV ONE (15:55)
[2017-01-25] MEDS ORDERED: CEPACOL LOZENGE PO PRN (15:55)
[2017-01-25] MEDS ORDERED: POTASSIUM Cl (KCl) 50 ML IV PRN (15:55)
[2017-01-25] MEDS ORDERED: MEPERIDINE 25 MG/ML SYR IVP PRN (15:55)
[2017-01-25] MEDS ORDERED: D50W 25 GM/50 ML SYR IVP PRN (15:55)
[2017-01-25] MEDS ORDERED: LACTULOSE 20 GM/30 ML UDCUP PO PRN (15:55)
[2017-01-25] MEDS ORDERED: BISACODYL 10 MG SUPP PR PRN (15:55)
[2017-01-25] MEDS ORDERED: ACETAMINOPHEN 650 MG SUPP PR PRN (15:55)
[2017-01-25] MEDS ORDERED: POLYETHYLENE GLYCOL 3350 17 GM PKT PO PRN (15:55)
[2017-01-25] MEDS ORDERED: SODIUM CL NASAL 45 ML BTL EACHNARE PRN (15:55)
[2017-01-25] MEDS ORDERED: MAGNESIUM HYDROXIDE 30 ML UDCUP PO PRN (15:55)
[2017-01-25] MEDS ORDERED: METOCLOPRAMIDE 10 MG/2 ML VIAL IVP PRN (15:55)
[2017-01-25] MEDS ORDERED: INSULIN REGULAR HUMAN 100 UNIT in NS 100 ML IV SCH (16:00)
[2017-01-25] MEDS ORDERED: NS 1,000 ML IV SCH (16:00)
--- NOTE | 2017-01-25 16:24 | POSTOPPROG ---
Post Op Note Date of Operation: 01/25/17 Surgeon: Arslan Pelaez Cardiac Surgeon: Nba Douglas Anesthesiologist: Kevin Anesthesia: GET(General Endotracheal) Pre-op Diagnosis: arch and ascending aneurysm Procedure: elephant trunk, TEVAR, R axillary graft, LCFA repair/cutdown, Inf/Abcess present in the surg proc area at time of surgery?: No EBL: 500-1000 Drains: Other (2 blakes)
[2017-01-25] MEDS: ALBUMIN 5% 250 ML IV PRN ×3 (16:40→21:14)
[2017-01-25] MEDS: MUPIROCIN 2% 22 GM OINT NS SCH ×3 (18:34→22:00)
[2017-01-25] MEDS: ASPIRIN EC 81 MG TAB PO SCH (18:35)
[2017-01-25] MEDS: FLUTICASONE NASAL 120 SPRAYS/16 GM MDI EACHNARE SCH (18:35)
[2017-01-25 19:15] LABS: CALCULATED OXYGEN SATURATION 100 % (92-95); O2 CONCENTRATIION 80 % (0-100)
[2017-01-25 19:15] LABS: CALCULATED OXYGEN SATURATION 89 % (92-95)
[2017-01-25] MEDS ORDERED: SODIUM BICARBONATE 50 MEQ/50 ML SYR IVP ONE (19:45)
[2017-01-25] MEDS: CHLORHEXIDINE GLUCONATE 15 ML UDL PO SCH (20:30)
[2017-01-25 21:32] LABS: BASE EXCESS -2.8 mEq/L (-2.5-2.5); BICARBONATE 21 mEq/L (22-26); MEASURED OXYGEN SATURATION 99 % (92-95); PCO2 35 mmHg (34-38); PO2 140 mmHg (65-75); SIMV YES; TCO2 22 mEq/L (23-27)
[2017-01-25 21:33] LABS: END TIDAL CO2 44; O2 CONCENTRATIION 50 % (0-100); P/F RATIO 280 RATIO
[2017-01-25 21:34] LABS: PATIENT RATE 18; PRESSURE SUPPORT 7
[2017-01-25] MEDS: ceFAZolin 2 GM/DEXTROSE 100 ML IV SCH (21:48)
[2017-01-25] MEDS: niCARdipine/NACL 200 ML IV PRN (22:50)
[2017-01-25] MEDS: fentaNYL 100 MCG/2 ML INJ IVP PRN (23:51)
[2017-01-26 02:06] LABS: HEMATOCRIT 24.9 % (40.0-51.0); HEMOGLOBIN 8.8 g/dL (13.7-17.5); MEAN CELL HEMOGLOBIN 33.2 pg (27.9-34.1); MEAN CELL HEMOGLOBIN CONCENTR. 35.3 g/dL (32.4-36.7); RED BLOOD CELL COUNT 2.65 10^6/uL (4.40-6.38); RED CELL DISTRIBUTION WIDTH 16.2 % (11.5-15.2)
[2017-01-26] MEDS: DEXMEDETOMIDINE HCL 400 MCG in NS 100 ML IV SCH ×3 (03:51→20:28)
[2017-01-26] MEDS: ALBUMIN 5% 250 ML IV PRN (05:11)
[2017-01-26] MEDS: ceFAZolin 2 GM/DEXTROSE 100 ML IV SCH ×3 (05:11→22:15)
[2017-01-26] MEDS: HEPARIN 5,000 UNIT/0.5 ML SYR SC SCH ×3 (05:12→23:12)
[2017-01-26 06:06] LABS: BASE EXCESS -2.8 mEq/L (-2.5-2.5); BICARBONATE 21 mEq/L (22-26); MEASURED OXYGEN SATURATION 97 % (92-95); PCO2 38 mmHg (34-38); PO2 98 mmHg (65-75); TCO2 23 mEq/L (23-27)
[2017-01-26 06:10] LABS: CPAP YES; END TIDAL CO2 42; O2 CONCENTRATIION 40 % (0-100); P/F RATIO 245 RATIO
[2017-01-26 06:11] LABS: PATIENT RATE 18; PRESSURE SUPPORT 10
[2017-01-26 06:29] LABS: CALCIUM 8.3 mg/dL (8.5-10.4); CARBON DIOXIDE 23 mEq/l (22-31); CHLORIDE 115 mEq/L (97-110); CREATININE 1.3 mg/dL (0.7-1.3); GLOMERULAR FILTRATION RATE 53; GLUCOSE 106 mg/dL (70-100); SODIUM 147 mEq/L (134-144)
[2017-01-26 06:55] LABS: ANION GAP 9 mEq/L (8-16); POTASSIUM 4.7 mEq/L (3.5-5.2)
--- NOTE | 2017-01-26 07:02 | SOAPPROG ---
SOAP Progress Note Assessment/Plan: POD #1: Ascending aorta and arch replacement, right axillary cannulation, TEVAR descending aorta aneurysm through RFA cutdown, ligation CANDIS Ascending/aortic arch aneurysm s/p repair - ASA for thromboprophylaxis - Wean vent as tolerated - Continue AL/FC/CTx2 Descending aortic aneurysm s/p TEVAR - Mgmt as per aorta repair Acute blood loss anemia with coagulopathy s/p 2U PRBC, 2U FFP, 1U platelets - Not actively bleeding - monitor Subjective: Not following commands. Objective: Vital Signs Temp Pulse Resp BP Pulse Ox 37.6 C 68 22 H 108/53 L 98 01/26/17 06:00 01/26/17 06:00 01/26/17 06:00 01/26/17 06:00 01/26/17 06:00 Laboratory Results 01/26/17 06:00 01/25/17 01/26/17 01/27/17 05:59 05:59 05:59 Intake Total 2450 4840 Output Total 1 4700 Balance 2449 140 PT 13.2 SEC (12.0-15.0) 01/22/17 12:56 INR 1.01 (0.83-1.16) 01/22/17 12:56 Physical Exam - Physical Exam General Appearance: no apparent distress EENT: ET tube Neck: normal inspection Respiratory: No respiratory distress Cardiac/Chest: regular rate, rhythm Abdomen: normal bowel sounds, non-tender, No distended Skin: normal color, warm/dry Extremities: No pedal edema (GCS 3T) ICD10 Worksheet Patient Problems: Problems Problem Status Onset Acute blood loss anemia Acute Coronary artery disease (CAD) excluded Acute Hypotension Acute Pre-syncope Acute S/P thoracic aortic aneurysm repair Acute ~01/25/17 Urethral stricture Acute Thoracic aortic aneurysm Chronic Pacemaker Acute
[2017-01-26 07:29] LABS: % IMMATURE GRANULYOCYTES 0.5 % (0.0-1.1); ABSOLUTE IMMATURE GRANULOCYTES 0.08 10^3/uL (0.00-0.10); ADD DIFF? NO; ADD MORPH? NO; ADD SCAN? YES; ATYPICAL LYMPHOCYTE FLAG 0 (0-99); FRAGMENT RBC FLAG 20 (0-99); HEMATOCRIT 21.8 % (40.0-51.0); HEMOGLOBIN 7.6 g/dL (13.7-17.5); LIPEMIA HEMOLYSIS FLAG 90 (0-99); MEAN CELL HEMOGLOBIN 32.8 pg (27.9-34.1); MEAN CELL HEMOGLOBIN CONCENTR. 34.9 g/dL (32.4-36.7); MEAN PLATELET VOLUME 10.1 fL (8.7-11.7); PLATELET CLUMPS FLAG 0 (0-99); PLATELET COUNT 57 10^3/uL (150-400); RED BLOOD CELL COUNT 2.32 10^6/uL (4.40-6.38); RED CELL DISTRIBUTION WIDTH 16.2 % (11.5-15.2)
[2017-01-26] MEDS ORDERED: FUROSEMIDE 40 MG/4 ML VIAL IVP ONE (07:31)
[2017-01-26 07:34] LABS: LEFT SHIFT FLG 140 (0-99)
[2017-01-26 08:03] LABS: SCAN POSITIVE
[2017-01-26 08:08] LABS: KERATOCYTES 1+; POLYCHROMASIA 1+; SCHISTOCYTES 1+
[2017-01-26 08:09] LABS: PLATELET ESTIMATE DECREASED (ADEQ)
[2017-01-26] MEDS: MUPIROCIN 2% 22 GM OINT NS SCH ×2 (08:37→20:30)
[2017-01-26] MEDS: FLUTICASONE NASAL 120 SPRAYS/16 GM MDI EACHNARE SCH (08:38)
[2017-01-26] MEDS: CHLORHEXIDINE GLUCONATE 15 ML UDL PO SCH ×2 (08:38→23:13)
[2017-01-26] MEDS: ASPIRIN EC 81 MG TAB PO SCH (08:38)
[2017-01-26] MEDS ORDERED: ASPIRIN 81 MG CHEWABLE TAB TUBE PRN (09:00)
[2017-01-26] MEDS ORDERED: PANTOPRAZOLE SODIUM 40 MG TAB PO SCH (09:00)
[2017-01-26] MEDS: PANTOPRAZOLE SODIUM 40 MG in NS 100 ML IV SCH (09:53)
[2017-01-26] MEDS ORDERED: MAGNESIUM SULF 2 GM/WATER 50 ML BAG IV ONE (11:50)
[2017-01-26 12:40] LABS: POTASSIUM 4.4 mEq/L (3.5-5.2)
--- NOTE | 2017-01-26 15:01 | PDINTPN ---
Glass Smoother Progress Note Assessment/Plan: Assessment: S/P thoracic arch replacement, with tadditional thoracic endograft placement: Hemodynamically stable, now recovering from anesthesia and waking up. Anemia: Hgb continues to trend down, no signs of unexpected bleeding, stable. Likely due to expected large intraoperative blood loss. Acute respiratory failure: Expected after extensive surgery/anesthesia. Extubated, oxygen needs decreasing. Hyperglycemia: Improved. Plan: Follow Hgb, transfuse if falls much further. Continue to monitor blood sugars, insulin PRN. 01/26/17 15:06 Subjective: Still groggy, c/o GAYLE, no dyspnea, CP Objective: Vital Signs Temp Pulse Resp BP Pulse Ox 37.8 C 88 14 167/60 H 97 01/26/17 13:00 01/26/17 13:00 01/26/17 13:00 01/26/17 13:00 01/26/17 13:00 Laboratory Results 01/26/17 06:00 01/26/17 12:00 01/25/17 01/26/17 01/27/17 05:59 05:59 05:59 Intake Total 2450 4840 Output Total 1 4700 1140 Balance 2449 140 -1140 PT 13.2 SEC (12.0-15.0) 01/22/17 12:56 INR 1.01 (0.83-1.16) 01/22/17 12:56 Physical Exam - Physical Exam General Appearance: other (somnolent but arousable, follows simple commands.) EENT: normal ENT inspection, other (mild edema) Neck: normal inspection Respiratory: lungs clear, normal breath sounds Cardiac/Chest: regular rate, rhythm, No edema Abdomen: normal bowel sounds, non-tender Skin: normal color, warm/dry Extremities: normal inspection Neuro/Psych: oriented x 3, No alert, No normal mood/affect (groggy) ICD10 Worksheet Patient Problems: Problems Problem Status Onset Acute blood loss anemia Acute Coronary artery disease (CAD) excluded Acute Hypotension Acute Pre-syncope Acute S/P thoracic aortic aneurysm repair Acute ~01/25/17 Urethral stricture Acute Thoracic aortic aneurysm Chronic Pacemaker Acute
[2017-01-26 15:22] LABS: HEMOGLOBIN 10.9 g/dL (13.7-17.5)
--- NOTE | 2017-01-26 15:49 | GHP ---
[f rep st] HISTORY AND PHYSICAL DATE OF ADMISSION: 01/23/2017 REFERRING PHYSICIAN: Arslan Pelaez DO Pulmonary/critical care consultation. REASON FOR REFERRAL: Evaluation and management of anemia and postoperative respiratory insufficiency. HISTORY: The patient is an 81-year-old gentleman with a history of thoracic aneurysm and recent pacemaker placement, who underwent an aortic root graft, followed by an endovascular graft placement, in addition to a cystoscopy. Intraoperatively, he was found to have a hemopericardium that was under some tension. Estimated blood loss was 500 to 1000 cc. He had over 1 hour of time in which only has brain was perfused in antegrade fashion. He has returned to the intensive care unit, intubated and still unresponsive. PAST MEDICAL HISTORY: 1. Vascular disease with a thoracic aortic aneurysm. 2. AV block, status post pacemaker placement. 3. Recent presyncope. MEDICATIONS: At the time of admission, included Claritin, aspirin. Medications here in the hospital include Ancef, Zyrtec, Apresodex, fentanyl, insulin, morphine, oxycodone. ALLERGIES: None. SOCIAL HISTORY: The patient is originally from [facility]. He recently moved to [place]. He has 1-2 drinks a day and stopped smoking years ago. FAMILY HISTORY: Unremarkable. REVIEW OF SYSTEMS: Unobtainable. PHYSICAL EXAMINATION: VITAL SIGNS: Blood pressure is 116/60, with a heart rate of 91. His temperature is 33.4, oxygen saturations are 100%. HEENT: He has some mild facial edema, otherwise normocephalic and atraumatic. NECK: No adenopathy. Trachea is midline. CHEST: Clear to auscultation. CARDIAC: Regular rate and rhythm without murmur. ABDOMEN: Soft, nontender. Bowel sounds are present. EXTREMITIES: No clubbing, cyanosis, or edema. NEURO: Unresponsive. Pupils reactive. Not moving any extremities LABORATORY: A hemoglobin is 10.9. Sodium is 147, with a chloride of 109, a potassium is 4.0, creatinine 0.8, glucose is 188. An arterial blood gas shows a pH of 7.20, and O2 of 70, with a CO2 of 34, bicarbonate 21, on mechanical ventilator with 80% oxygen. A chest x-ray shows extensive mild interstitial edema. Images reviewed. ASSESSMENT: 1. Status post thoracic aortic aneurysm repair, as well as aortic endograft. 2. Urethral stricture, status post cystoscopy and Hernández placement. 3. Postoperative anemia. This is expected given the major surgery with expected blood loss. 4. Respiratory failure. This is also expected given the prolonged anesthesia for major cardiovascular surgery. RECOMMENDATIONS: 1. Follow hemoglobin level. 2. Continue mechanical ventilation. When the patient is more alert, weaning parameters will be obtained and the patient can be extubated. /[id number]/MODL MTDD
[2017-01-26 16:10] LABS: POTASSIUM 4.1 mEq/L (3.5-5.2)
[2017-01-26 20:39] LABS: MAGNESIUM 2.3 mg/dL (1.6-2.3); POTASSIUM 3.8 mEq/L (3.5-5.2)
[2017-01-26] MEDS: fentaNYL 100 MCG/2 ML INJ IVP PRN (22:15)
[2017-01-27] MEDS: DEXMEDETOMIDINE HCL 400 MCG in NS 100 ML IV SCH (03:06)
[2017-01-27] MEDS: ceFAZolin 2 GM/DEXTROSE 100 ML IV SCH (05:03)
[2017-01-27 05:43] LABS: ADD DIFF? NO; ADD MORPH? NO; ADD SCAN? NO; ATYPICAL LYMPHOCYTE FLAG 0 (0-99); FRAGMENT RBC FLAG 0 (0-99); HEMATOCRIT 28.4 % (40.0-51.0); HEMOGLOBIN 9.8 g/dL (13.7-17.5); LEFT SHIFT FLG 60 (0-99); LIPEMIA HEMOLYSIS FLAG 90 (0-99); MEAN CELL HEMOGLOBIN 31.9 pg (27.9-34.1); MEAN CELL HEMOGLOBIN CONCENTR. 34.5 g/dL (32.4-36.7); MEAN CELL VOLUME 92.5 fL (81.5-99.8); MEAN PLATELET VOLUME 12.1 fL (8.7-11.7); PLATELET CLUMPS FLAG 10 (0-99); RED BLOOD CELL COUNT 3.07 10^6/uL (4.40-6.38); RED CELL DISTRIBUTION WIDTH 17.1 % (11.5-15.2)
[2017-01-27 05:45] LABS: PLATELET COUNT 37 10^3/uL (150-400)
[2017-01-27 06:02] LABS: ANION GAP 7 mEq/L (8-16); CARBON DIOXIDE 27 mEq/l (22-31); CHLORIDE 112 mEq/L (97-110); CREATININE 1.1 mg/dL (0.7-1.3); GLOMERULAR FILTRATION RATE > 60; GLUCOSE 162 mg/dL (70-100); SODIUM 146 mEq/L (134-144)
[2017-01-27 06:10] LABS: PLATELET ESTIMATE DECREASED (ADEQ)
[2017-01-27] MEDS: HEPARIN 5,000 UNIT/0.5 ML SYR SC SCH ×2 (06:36→11:00)
--- NOTE | 2017-01-27 07:28 | SOAPPROG ---
SOAP Progress Note Assessment/Plan: POD #2: Ascending aorta and arch replacement, right axillary cannulation, TEVAR descending aorta aneurysm through RFA cutdown, ligation CANDIS Ascending/aortic arch aneurysm s/p repair - ASA for thromboprophylaxis - DC AL/FC - CT on bulb suction Descending aortic aneurysm s/p TEVAR - Mgmt as per aorta repair Acute blood loss anemia with coagulopathy s/p 2U PRBC, 2U FFP, 1U platelets - Not actively bleeding - monitor Urethral stricture s/p dilation - Hernández d/c trial today h/o AV block with PPM implantation - plan for interrogation today Subjective: Denies sapp. Sleepy. Objective: Vital Signs Temp Pulse Resp BP Pulse Ox 36.6 C 62 16 144/60 H 98 01/27/17 04:00 01/27/17 06:00 01/27/17 06:00 01/27/17 06:00 01/27/17 06:00 Laboratory Results 01/27/17 05:25 01/27/17 05:25 01/26/17 01/27/17 01/28/17 05:59 05:59 05:59 Intake Total 4840 1186 Output Total 4700 2900 Balance 140 -1714 PT 13.2 SEC (12.0-15.0) 01/22/17 12:56 INR 1.01 (0.83-1.16) 01/22/17 12:56 Physical Exam - Physical Exam General Appearance: no apparent distress, other (lethargic) EENT: No scleral icterus (R), No scleral icterus (L) Neck: normal inspection Respiratory: No respiratory distress Cardiac/Chest: regular rate, rhythm Abdomen: non-tender, soft, No distended Skin: normal color, warm/dry Extremities: No pedal edema Neuro/Psych: motor weakness ICD10 Worksheet Patient Problems: Problems Problem Status Onset Acute blood loss anemia Acute Coronary artery disease (CAD) excluded Acute Hypotension Acute Pre-syncope Acute S/P thoracic aortic aneurysm repair Acute ~01/25/17 Urethral stricture Acute Thoracic aortic aneurysm Chronic Pacemaker Acute
[2017-01-27] MEDS: niCARdipine/NACL 200 ML IV PRN ×2 (09:11→10:32)
[2017-01-27] MEDS: CHLORHEXIDINE GLUCONATE 15 ML UDL PO SCH (09:11)
[2017-01-27] MEDS ORDERED: FUROSEMIDE 40 MG/4 ML VIAL IVP ONE (10:30)
[2017-01-27] MEDS: ASPIRIN EC 81 MG TAB PO SCH (10:33)
[2017-01-27] MEDS: SENNOSIDES/DOCUSATE SODIUM TAB PO SCH ×2 (10:33→19:17)
[2017-01-27] MEDS: FLUTICASONE NASAL 120 SPRAYS/16 GM MDI EACHNARE SCH (10:34)
[2017-01-27] MEDS: PANTOPRAZOLE SODIUM 40 MG in NS 100 ML IV SCH (10:54)
--- NOTE | 2017-01-27 12:20 | PDINTPN ---
[employer] Car [employer] Progress Note Assessment/Plan: Assessment: S/P thoracic arch replacement, with tadditional thoracic endograft placement: Hemodynamically stable, now recovering from anesthesia and waking up. Anemia: Hgb continues to trend down, no signs of unexpected bleeding, stable. Down a bit again after transfusion. Just had a BM, ? melena. Acute respiratory failure: Expected after extensive surgery/anesthesia. Extubated, oxygen needs decreasing. Hyperglycemia: Improved. Thrombocytopenia: Continues to fall. Plan: Follow Hgb, transfuse if falls much further again. HIT panel. Stop Heparin. Heme consult. Continue to monitor blood sugars, insulin PRN. 01/27/17 12:31 Subjective: Feels OK, generalized discomfort without discreet pain. Endurance improving. Taking some PO. Objective: Vital Signs Temp Pulse Resp BP Pulse Ox 38 C 100 20 176/66 H 91 L 01/27/17 10:58 01/27/17 10:58 01/27/17 10:58 01/27/17 10:58 01/27/17 10:58 Laboratory Results 01/27/17 05:25 01/27/17 05:25 01/26/17 01/27/17 01/28/17 05:59 05:59 05:59 Intake Total 4840 1186 Output Total 4700 2900 Balance 140 -1714 PT 13.2 SEC (12.0-15.0) 01/22/17 12:56 INR 1.01 (0.83-1.16) 01/22/17 12:56 CXR: Stable small effusions. Images reviewed. Physical Exam - Physical Exam General Appearance: alert, no apparent distress EENT: normal ENT inspection Neck: normal inspection Respiratory: lungs clear, No normal breath sounds Cardiac/Chest: regular rate, rhythm, edema Abdomen: non-tender, soft Skin: normal color, warm/dry Extremities: non-tender Neuro/Psych: alert, normal mood/affect, oriented x 3 ICD10 Worksheet Patient Problems: Problems Problem Status Onset Acute blood loss anemia Acute Coronary artery disease (CAD) excluded Acute Hypotension Acute Pre-syncope Acute S/P thoracic aortic aneurysm repair Acute ~01/25/17 Urethral stricture Acute Thoracic aortic aneurysm Chronic Pacemaker Acute
[2017-01-27 12:59] LABS: ALBUMIN 3.2 g/dL (3.5-5.0); BILIRUBIN,TOTAL 1.9 mg/dL (0.1-1.4); BILIRUBIN-CONJUGATED 0.7 mg/dL (0.0-0.5); BILIRUBIN-UNCONJUGATED 1.2 mg/dL (0.0-1.1); TOTAL PROTEIN 5.1 g/dL (6.3-8.2)
[2017-01-27 13:35] LABS: % IMMATURE GRANULYOCYTES 0.7 % (0.0-1.1); ABSOLUTE IMMATURE GRANULOCYTES 0.14 10^3/uL (0.00-0.10); ADD DIFF? NO; ADD MORPH? NO; ADD SCAN? NO; ATYPICAL LYMPHOCYTE FLAG 0 (0-99); FRAGMENT RBC FLAG 0 (0-99); HEMATOCRIT 27.7 % (40.0-51.0); HEMOGLOBIN 9.7 g/dL (13.7-17.5); LEFT SHIFT FLG 80 (0-99); LIPEMIA HEMOLYSIS FLAG 90 (0-99); MEAN CELL HEMOGLOBIN 32.1 pg (27.9-34.1); MEAN CELL VOLUME 91.7 fL (81.5-99.8); PLATELET CLUMPS FLAG 0 (0-99); RED BLOOD CELL COUNT 3.02 10^6/uL (4.40-6.38); RED CELL DISTRIBUTION WIDTH 16.4 % (11.5-15.2)
[2017-01-27 13:36] LABS: PLATELET COUNT 37 10^3/uL (150-400)
[2017-01-27] MEDS: HYDROCODONE/APAP 5/325 TAB PO PRN ×2 (13:44→21:00)
[2017-01-27 13:48] LABS: PLATELET COUNT 37 10^3/uL (150-400)
[2017-01-27 13:59] LABS: PLATELET ESTIMATE DECREASED (ADEQ)
[2017-01-27 14:23] LABS: INR 1.31 (0.83-1.16); PROTIME(PATIENT) 16.3 SEC (12.0-15.0)
[2017-01-27 14:24] LABS: APTT 30.9 SEC (23.0-38.0)
[2017-01-27 14:26] LABS: FIBRINOGEN 396 mg/dL (214-456)
[2017-01-27 16:59] LABS: ANION GAP 6 mEq/L (8-16); CALCIUM 7.9 mg/dL (8.5-10.4); CARBON DIOXIDE 32 mEq/l (22-31); CHLORIDE 106 mEq/L (97-110); CREATININE 1.1 mg/dL (0.7-1.3); GLOMERULAR FILTRATION RATE > 60; GLUCOSE 125 mg/dL (70-100); POTASSIUM 3.4 mEq/L (3.5-5.2); SODIUM 144 mEq/L (134-144)
[2017-01-27] MEDS ORDERED: PROTOCOL POTASSIUM 1 DOSE MISC PRN (17:48)
[2017-01-27] MEDS: POTASSIUM Cl (KCl) 50 ML IV SCH ×3 (18:04→19:16)
[2017-01-27] MEDS: ACETAMINOPHEN 325 MG TAB PO PRN (19:11)
[2017-01-27] MEDS: traMADol 50 MG TAB PO PRN (19:13)
--- NOTE | 2017-01-27 19:16 | GCON ---
[f rep st] CONSULTATION HEMATOLOGY CONSULTATION DATE OF CONSULTATION: 01/27/2017 REFERRING PHYSICIAN: Arslan Pelaez DO REASON FOR CONSULTATION: Thrombocytopenia. HISTORY OF PRESENT ILLNESS: The patient is an 81-year-old man who was admitted 01/22/2017 in the midst of an ongoing evaluation for thoracic aortic aneurysm repair. He was admitted with some presyncopal symptoms. He underwent angiogram 01/25/2017. He had combined surgical and endovascular repair of the thoracic aortic aneurysm. On admission 01/22/2017, platelet count 279,000. The date of surgery, platelets 202,000. 01/26/2017, platelets 73,000 at 2 a.m., 57,000 at 6 a.m. This morning platelets 37,000. HIT antibody was sent this morning. He had a pacemaker placed 01/04/2017. Other than the mentioned procedures, his family reports no known exposures to heparin or situations requiring DVT prophylaxis other than possibly during a hospitalization 10-20 years ago. He had a tonsillectomy approximately 50 years ago. He has had no bleeding. Drains remain present. They know of no prior blood count abnormalities. PAST MEDICAL HISTORY: 1. AV block requiring pacemaker placement (01/04/2017). 2. Aortic aneurysm, as above. PAST SURGICAL HISTORY: 1. Pacemaker placement 01/04/2017. 2. Remote tonsillectomy. MEDICATIONS PRIOR TO ADMISSION: Ibuprofen, aspirin, vitamin D, Flonase, guaifenesin, loratadine. INPATIENT MEDICATIONS: Include Tylenol, aspirin, Flonase, hydrocodone, lactulose, metoclopramide, morphine, ondansetron, pantoprazole, tramadol. There is an order for postop prophylactic SC heparin, but he has not received any doses due to thrombocytopenia. ALLERGIES: No known drug allergies. SOCIAL HISTORY: He is . He and his moved to [place] to be near their daughters fairly recently. They previously lived in [place]. He is originally from [place]. Remote smoking history. One to 2 alcoholic drinks a day. He previously worked in [employer] and is now retired. FAMILY HISTORY: He has 2 daughters and 1 son. Noncontributory. REVIEW OF SYSTEMS: Limited given his postoperative discomfort. Family denies any bleeding. PHYSICAL EXAMINATION: VITAL SIGNS: Blood pressure 107/56, pulse 109, 93% on 2 L. GENERAL: He responds to questions, but is uncomfortable and keeps his eyes closed. CARDIOVASCULAR: Regular rate and rhythm, no pretibial edema. Bilateral SCDs in place. LUNGS: Clear to auscultation. ABDOMEN: Soft, nontender. SKIN: No oozing around IV sites, sternotomy incision, or drain sites. LABORATORY STUDIES: This morning, WBC 19.0 (87% neutrophils, 5% lymphocytes), hemoglobin 9.8, MCV 92.5, platelets 37,000. Hemoglobin yesterday morning was 7.6 and went up to 10.9 following 2 units PRBCs. Sodium 146, chloride 112, BUN 33, creatinine 1.1, glucose 162. LFTs normal on admission 01/22/2017. Normal coags on admission. IMPRESSION: 1. Thrombocytopenia. 2. Anemia, secondary to postoperative blood loss. The differential of the patient's thrombocytopenia includes consumption from cardiac surgery, heparin-induced thrombocytopenia, disseminated intravascular coagulation. This is unlikely to be posttransfusion purpura. It is difficult to discern between consumption from his cardiac surgery and heparin-induced thrombocytopenia. His thrombocytopenia occurred acutely postoperatively and 3 days following heparin exposure at the time of his angiogram. It is unlikely he would have received heparin with his pacemaker placement. Typical onset of thrombocytopenia due to HIT is 5-10 days following initiation of heparin. His thrombocytopenia occurred earlier than that. His thrombocytopenia is lower than would be typical following cardiac surgery. HIT antibody results will not be available for a couple of days and thus we have to rely on the clinical scenario. He has an intermediate probability of HIT given the atypical timing of thrombocytopenia, as well as the possible explanation of consumptive process with cardiac surgery. In this situation, I would typically recommend empiric anticoagulation given the risk of thrombotic events in HIT without anticoagulation. I discussed the difficulty in balancing risk of bleeding with anticoagulation versus the risk of thrombosis in the setting of HIT in detail with his family. They understand the difficulty. DIC panel will be sent to exclude obvious disseminated intravascular coagulation, although I expect his D- dimer will be elevated following cardiac surgery. Of course, all heparin and low molecular weight heparin products should be avoided. Presuming repeat laboratory studies do not demonstrate a clear alternative diagnosis, I would favor beginning argatroban. ADDENDUM: The patient had a heme-positive "very dark stool" as described by staff shortly after I saw him. Repeat labs early afternoon demonstrate stable hemoglobin of 9.7 (although this had fallen from 10.9 last night), and unchanged thrombocytopenia (37,000). PT 16.3, INR 1.3, PTT 30.9, fibrinogen 396 , D-dimer 4.62. This is a difficult clinical scenario given the unclear etiology of his thrombocytopenia. In light of the GI bleeding, I will wait on starting argatroban given the high risk of bleeding and the intermediate probability of HIT. He has not had any evidence of thrombosis. Discussed with Dr. Pelaez. /[id number]/MODL MTDD
[2017-01-27 19:34] LABS: % IMMATURE GRANULYOCYTES 0.8 % (0.0-1.1); ABSOLUTE IMMATURE GRANULOCYTES 0.18 10^3/uL (0.00-0.10); ADD DIFF? NO; ADD MORPH? NO; ADD SCAN? NO; ATYPICAL LYMPHOCYTE FLAG 0 (0-99); FRAGMENT RBC FLAG 0 (0-99); HEMOGLOBIN 9.3 g/dL (13.7-17.5); LEFT SHIFT FLG 60 (0-99); LIPEMIA HEMOLYSIS FLAG 90 (0-99); MEAN CELL HEMOGLOBIN 31.8 pg (27.9-34.1); MEAN CELL HEMOGLOBIN CONCENTR. 34.4 g/dL (32.4-36.7); MEAN CELL VOLUME 92.5 fL (81.5-99.8); MEAN PLATELET VOLUME 13.2 fL (8.7-11.7); PLATELET CLUMPS FLAG 0 (0-99); RED BLOOD CELL COUNT 2.92 10^6/uL (4.40-6.38); RED CELL DISTRIBUTION WIDTH 16.3 % (11.5-15.2)
[2017-01-27 19:42] LABS: PLATELET COUNT 40 10^3/uL (150-400)
[2017-01-27 20:53] LABS: PLATELET ESTIMATE DECREASED (ADEQ)
[2017-01-28] MEDS: ACETAMINOPHEN 325 MG TAB PO PRN (02:27)
[2017-01-28] MEDS: HYDROCODONE/APAP 5/325 TAB PO PRN ×2 (02:27→21:46)
[2017-01-28 05:40] LABS: % IMMATURE GRANULYOCYTES 1.3 % (0.0-1.1); ABSOLUTE IMMATURE GRANULOCYTES 0.23 10^3/uL (0.00-0.10); ADD DIFF? NO; ADD MORPH? NO; ADD SCAN? NO; ATYPICAL LYMPHOCYTE FLAG 0 (0-99); FRAGMENT RBC FLAG 0 (0-99); HEMATOCRIT 26.1 % (40.0-51.0); HEMOGLOBIN 8.9 g/dL (13.7-17.5); LEFT SHIFT FLG 70 (0-99); LIPEMIA HEMOLYSIS FLAG 90 (0-99); MEAN CELL HEMOGLOBIN 32.1 pg (27.9-34.1); MEAN CELL HEMOGLOBIN CONCENTR. 34.1 g/dL (32.4-36.7); MEAN CELL VOLUME 94.2 fL (81.5-99.8); PLATELET CLUMPS FLAG 0 (0-99); PLATELET COUNT 37 10^3/uL (150-400); RED BLOOD CELL COUNT 2.77 10^6/uL (4.40-6.38); RED CELL DISTRIBUTION WIDTH 16.1 % (11.5-15.2)
[2017-01-28 05:56] LABS: ANION GAP 4 mEq/L (8-16); CALCIUM 7.9 mg/dL (8.5-10.4); CARBON DIOXIDE 31 mEq/l (22-31); CHLORIDE 108 mEq/L (97-110); CREATININE 0.9 mg/dL (0.7-1.3); GLOMERULAR FILTRATION RATE > 60; GLUCOSE 114 mg/dL (70-100); POTASSIUM 3.7 mEq/L (3.5-5.2); SODIUM 143 mEq/L (134-144)
[2017-01-28 06:08] LABS: PLATELET ESTIMATE DECREASED (ADEQ)
[2017-01-28] MEDS ORDERED: POTASSIUM Cl (KCl) 50 ML IV ONE (06:35)
--- NOTE | 2017-01-28 08:06 | SOAPPROG ---
SOAP Progress Note Assessment/Plan: POD #3: Ascending aorta and arch replacement, right axillary cannulation, TEVAR descending aorta aneurysm through RFA cutdown, ligation CANDIS Ascending/aortic arch aneurysm s/p repair - BB when taking PO - CT d/c today Descending aortic aneurysm s/p TEVAR - Mgmt as per aorta repair Acute blood loss anemia with coagulopathy, with occult blood in stool - No BRBPR/tarry stools/hematemesis or other signs of bleeding - HCT with minor downward drift (28.4 yesterday, 27.7 today) - s/p 2U PRBC, 2U FFP, 1U platelets post-operatively without transfusions since Thrombocytopenia - HIT/DIC panels pending - Hematology consult consulted - "intermediate" risk of HIT, ideally would start AC, but with blood in stool plan is to watch and wait Urethral stricture s/p dilation - Voiding urine without difficulty h/o AV block with PPM implantation - Interrogated post-op and functioning well Dysphagia - cough when swallowing - Repeat swallow this AM, strict NPO for now Subjective: Thirsty. Objective: Vital Signs Temp Pulse Resp BP Pulse Ox 36.7 C 82 13 115/59 L 97 01/28/17 06:00 01/28/17 07:00 01/28/17 07:00 01/28/17 07:00 01/28/17 07:00 Laboratory Results 01/28/17 05:32 01/28/17 05:32 01/27/17 01/28/17 01/29/17 05:59 05:59 05:59 Intake Total 1186 800 Output Total 2900 3450 250 Balance -1714 -2650 -250 PT 16.3 SEC (12.0-15.0) H 01/27/17 13:23 INR 1.31 (0.83-1.16) H 01/27/17 13:23 Physical Exam - Physical Exam General Appearance: WD/WN, alert, no apparent distress EENT: No scleral icterus (R), No scleral icterus (L) Neck: normal inspection Respiratory: No respiratory distress Cardiac/Chest: regular rate, rhythm Abdomen: non-tender, soft, No distended Skin: normal color, warm/dry Extremities: pedal edema Neuro/Psych: no motor/sensory deficits, alert, normal mood/affect, oriented x 3 ICD10 Worksheet Patient Problems: Problems Problem Status Onset Acute blood loss anemia Acute Coronary artery disease (CAD) excluded Acute Hypotension Acute Pre-syncope Acute S/P thoracic aortic aneurysm repair Acute ~01/25/17 Urethral stricture Acute Thoracic aortic aneurysm Chronic Pacemaker Acute
[2017-01-28] MEDS ORDERED: PANTOPRAZOLE SODIUM 40 MG TAB PO SCH (09:00)
[2017-01-28] MEDS ORDERED: FUROSEMIDE 20 MG/2 ML VIAL IVP ONE (10:11)
[2017-01-28] MEDS: FLUTICASONE NASAL 120 SPRAYS/16 GM MDI EACHNARE SCH (11:52)
[2017-01-28] MEDS: SENNOSIDES/DOCUSATE SODIUM TAB PO SCH ×2 (11:52→19:57)
[2017-01-28] MEDS: ASPIRIN EC 81 MG TAB PO SCH (11:53)
[2017-01-28 12:00] LABS: ALANINE AMINOTRANSFERASE 31 IU/L (21-72); ALKALINE PHOSPHATASE 56 IU/L (38-126); AMYLASE 56 IU/L (30-110); ASPARTATE AMINOTRANSFERASE 56 IU/L (17-59); BILIRUBIN-CONJUGATED 0.7 mg/dL (0.0-0.5); BILIRUBIN-UNCONJUGATED 1.3 mg/dL (0.0-1.1)
[2017-01-28] MEDS: METOPROLOL TARTRATE 25 MG TAB PO SCH ×2 (13:27→19:57)
--- NOTE | 2017-01-28 14:01 | SOAPPROG ---
SOAP Progress Note Assessment/Plan: A/P: * Thrombocytopenia: developed one day postop (01/26/17), but did have heparin exposure 01/22/17. No e/o DIC, TTP. HIT typically occurs 5-10d following heparin exposure but can occur earlier with previous heparin within 30 days. Plts have not increased despite heparin avoidance. He has intermediate risk for HIT, but given evidence of GIB (melena yesterday, hgb slow trend down) has high risk of bleeding. d/w Dr. Delgado. Hopefully, HIT Ab will be back tomorrow. For now, I think best to hold on anticoagulation. Will reconsider tomorrow depending on EGD results and HIT Ab. * UGIB: EGD tomorrow. * Elevated bili: primarily indirect, suspect due to transfusions. Would not expect issues with argatroban metabolism (hepatic clearance), but would start at low end if anticoagulating (0.2 mcg/kg/min). d/w with , daughter, and RN. 01/28/17 14:03 Subjective: Improving postop. No bleeding. and daughter present. Drains out today. O: VSS Gen: up in chair, NAD. CV: no edema. Skin: no oozing from IVs, wound. Laboratory Tests 01/27/17 01/28/17 01/28/17 13:23 05:32 05:32 WBC 18.34 H Hgb 8.9 L Plt Count 37 L PT 16.3 H INR 1.31 H APTT 30.9 Fibrinogen 396 D-Dimer 4.62 H BUN 30 H Creatinine 0.9 Total Bilirubin Conjugated Bilirubin Unconjugated Bilirubin AST ALT Alkaline Phosphatase 01/28/17 11:05 WBC Hgb Plt Count PT INR APTT Fibrinogen D-Dimer BUN Creatinine Total Bilirubin 2.0 H Conjugated Bilirubin 0.7 H Unconjugated Bilirubin 1.3 H AST 56 ALT 31 Alkaline Phosphatase 56 Objective: Vital Signs Temp Pulse Resp BP Pulse Ox 36.5 C 97 14 125/64 H 94 01/28/17 12:00 01/28/17 13:27 01/28/17 12:00 01/28/17 13:27 01/28/17 12:00 Laboratory Results 01/28/17 05:32 01/28/17 11:05 01/27/17 01/28/17 01/29/17 05:59 05:59 05:59 Intake Total 1186 800 Output Total 4729 7380 850 Balance -1714 -2650 -850 PT 16.3 SEC (12.0-15.0) H 01/27/17 13:23 INR 1.31 (0.83-1.16) H 01/27/17 13:23 ICD10 Worksheet Patient Problems: Problems Problem Status Onset Acute blood loss anemia Acute Coronary artery disease (CAD) excluded Acute Hypotension Acute Pre-syncope Acute S/P thoracic aortic aneurysm repair Acute ~01/25/17 Urethral stricture Acute Thoracic aortic aneurysm Chronic Pacemaker Acute
--- NOTE | 2017-01-28 15:20 | SOAPPROG ---
SOAP Progress Note Assessment/Plan: Assessment:Plan: see full consultation I suspect UGI bleed source as elevated BUN/CR, decrease Hb/CHT and melena all at same time EGD in am NPO p MN 01/28/17 15:18 Objective: Vital Signs Temp Pulse Resp BP Pulse Ox 36.5 C 91 15 131/52 H 95 01/28/17 12:00 01/28/17 14:00 01/28/17 14:00 01/28/17 14:00 01/28/17 14:00 Laboratory Results 01/28/17 05:32 01/28/17 11:05 01/27/17 01/28/17 01/29/17 05:59 05:59 05:59 Intake Total 1186 800 Output Total 2900 3450 850 Balance -1714 -2650 -850 PT 16.3 SEC (12.0-15.0) H 01/27/17 13:23 INR 1.31 (0.83-1.16) H 01/27/17 13:23 ICD10 Worksheet Patient Problems: Problems Problem Status Onset Acute blood loss anemia Acute Coronary artery disease (CAD) excluded Acute Hypotension Acute Pre-syncope Acute S/P thoracic aortic aneurysm repair Acute ~01/25/17 Urethral stricture Acute Thoracic aortic aneurysm Chronic Pacemaker Acute
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
[2017-01-28 18:07] LABS: POTASSIUM 3.6 mEq/L (3.5-5.2)
[2017-01-28] MEDS: traMADol 50 MG TAB PO PRN (19:40)
[2017-01-28] MEDS: PANTOPRAZOLE SODIUM 40 MG TAB PO SCH (19:57)
[2017-01-28] MEDS: POTASSIUM Cl (KCl) 50 ML IV SCH ×3 (19:58→21:41)
[2017-01-29 01:14] LABS: POTASSIUM 4.1 mEq/L (3.5-5.2)
[2017-01-29 06:50] LABS: HEMATOCRIT 29.9 % (40.0-51.0); HEMOGLOBIN 10.2 g/dL (13.7-17.5); MEAN CELL HEMOGLOBIN 31.9 pg (27.9-34.1); MEAN CELL HEMOGLOBIN CONCENTR. 34.1 g/dL (32.4-36.7); MEAN CELL VOLUME 93.4 fL (81.5-99.8); RED BLOOD CELL COUNT 3.2 10^6/uL (4.40-6.38); RED CELL DISTRIBUTION WIDTH 16.5 % (11.5-15.2)
[2017-01-29 07:04] LABS: POTASSIUM 3.8 mEq/L (3.5-5.2)
--- NOTE | 2017-01-29 07:58 | SOAPPROG ---
SOAP Progress Note Assessment/Plan: Assessment: POD#4 Ascending aortic and arch replacement under hypothermic circ arrest, right axillary artery cannulation. Pacer pocket revision. Prophylactic LLAA. TEVAR through RFA cutdown. Thoracic aortic aneurysm - s/p combined elephant trunk repair and TEVAR. - BB when taking PO - CT out - Routine postop CTA tomorrow, R/O endoleak Acute blood loss anemia with thrombocytopenia, coagulopathy, and occult blood in stool - No BRBPR/tarry stools/hematemesis or significant drop in H/H. - Last transfused 01/26. 2U PRBC, 2U FFP, 1U platelets to correct coagulopathy. - HIT/DIC panels pending. - Precautionary EGD per GI. - Hematology consulted - "intermediate" risk of HIT, ideally would start AC, pending results of endoscopy. Urethral stricture s/p dilation - Voiding urine without difficulty Presence of PPM - for AVB. - Interrogated post-op and functioning well. Intermittent Apacing. 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 Dozing off to pass the time while NPO. Objective: Vital Signs Temp Pulse Resp BP Pulse Ox 36.7 C 67 18 147/66 H 97 01/29/17 04:00 01/29/17 06:00 01/29/17 06:00 01/29/17 06:00 01/29/17 06:00 Laboratory Results 01/29/17 06:45 01/29/17 06:45 01/28/17 01/29/17 01/30/17 05:59 05:59 05:59 Intake Total 800 750 Output Total 3450 1700 Balance -2650 -950 PT 16.3 SEC (12.0-15.0) H 01/27/17 13:23 INR 1.31 (0.83-1.16) H 01/27/17 13:23 Stable HR and rhythm, rare AP Labile BPs, generally > 110. Minimal suppl O2 req. Adequate fluid balance. H/H stable. Plt appear to be rebounding. HIT pending. Physical Exam - Physical Exam General Appearance: alert (when engaged), no apparent distress Respiratory: lungs clear (grossly) Cardiac/Chest: regular rate, rhythm, other (Sternum grossly stable. Rt ax incision dressing CDI. Bilat groins soft. Rt groin incision CDI.) Peripheral Pulses: 2+: dorsalis-pedis (R) (bounding PT), dorsalis-pedis (L) ( bounding PT) Abdomen: normal bowel sounds, non-tender, soft Skin: warm/dry Extremities: swelling (trace dependent) ICD10 Worksheet Patient Problems: Problems Problem Status Onset Acute blood loss anemia Acute Coronary artery disease (CAD) excluded Acute Hypotension Acute Pre-syncope Acute S/P thoracic aortic aneurysm repair Acute ~01/25/17 Urethral stricture Acute Thoracic aortic aneurysm Chronic Pacemaker Acute
[2017-01-29] MEDS ORDERED: PROPOFOL 200 MG/20 ML VIAL ONE (11:03)
--- NOTE | 2017-01-29 12:03 | POSTOPPROG ---
Post Op Note Date of Operation: 01/29/17 Surgeon: Gilbert Delgado Anesthesiologist: ana Anesthesia: Epidural, Other (Specify) (IV general) Pre-op Diagnosis: melena, post hemorrhagic anemia, r/u PUD Post-op Diagnosis: gastritis, nml esoph, nml duodenum Indication: melena, post hemorrhagic anemia Procedure: egd and bx Findings: gastritis o/w nml, some adherent heme in distal body and antrum Inf/Abcess present in the surg proc area at time of surgery?: No EBL: Minimal (few ml from bx) Total fluids administered: 100 cc IV LR Complications: none immediate Specimen(s): 1) antrum bx
--- NOTE | 2017-01-29 13:56 | SOAPPROG ---
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 2.) Recent GIB, with EGD today neg. for active bleeding 3.) Recent CV surgery, in need of AC, complicated by above issues. Plan: 1.) Start low dose Argatroban ( 0.2 mcg/kg/min IV). 2.) Follow labs and clinically for bleeding/GIB 3.) Await HIT panel- 01/30 4.) Follow PLT trend. 5.) Will follow. 01/29/17 13:56 Subjective: Main complaint is thirst (+), post EGD having been NPO over past > 12 hours. No C/O bleeding, emesis, or new resp. distress. Objective: DaughterBekah at the bedside Pt. sitting upright and in NAD VSS, afebrile, Pulse low 80's regular. HEENT- anicteric, no oral thrush Neck- R IJ line- NT Chest- clear CVS- RR, S1, S2 - normal ABD- soft, NT, no mass or HSM EXT- warm, well perfused. No embolic peripheral findings. Labs: PLT 55 up from 37. Platelet count documented well > 200,[address] Quiroz's Consult note. H/H 10.2/29.9 today, WBC 14.71- as below. HIT panel- sent out to [facility] on 01/28 (yesterday, with turnaround time of at least 24 hours- per lead technologist in cytogenetics review). EGD report with some dried blood in stomach with antral bx. taken. No fresh bleeding lesion seen on EGD today. Vital Signs Temp Pulse Resp BP Pulse Ox 36.7 C 67 18 147/66 H 97 01/29/17 04:00 01/29/17 06:00 01/29/17 06:00 01/29/17 06:00 01/29/17 06:00 Laboratory Results 01/29/17 06:45 01/29/17 06:45 01/28/17 01/29/17 01/30/17 05:59 05:59 05:59 Intake Total 800 750 Output Total 3450 1700 Balance -2650 -950 PT 16.3 SEC (12.0-15.0) H 05/28/17 13:23 INR 1.31 (0.83-1.16) H 01/27/17 13:23 ICD10 Worksheet Patient Problems: Problems Problem Status Onset Acute blood loss anemia Acute Coronary artery disease (CAD) excluded Acute Hypotension Acute Pre-syncope Acute S/P thoracic aortic aneurysm repair Acute ~01/25/17 Urethral stricture Acute Thoracic aortic aneurysm Chronic Pacemaker Acute
[2017-01-29 14:27] LABS: POTASSIUM 3.7 mEq/L (3.5-5.2)
[2017-01-29] MEDS ORDERED: IOPAMIDOL (ISOVUE-300) 100 ML BTL ONE (14:29)
[2017-01-29] MEDS ORDERED: POTASSIUM Cl (KCl) 50 ML IV ONE ×2 (14:41→15:06)
[2017-01-29] MEDS: PANTOPRAZOLE SODIUM 40 MG TAB PO SCH ×2 (14:56→21:13)
[2017-01-29] MEDS: SENNOSIDES/DOCUSATE SODIUM TAB PO SCH ×2 (14:56→21:14)
[2017-01-29] MEDS: METOPROLOL TARTRATE 25 MG TAB PO SCH ×2 (14:56→21:14)
[2017-01-29] MEDS: FLUTICASONE NASAL 120 SPRAYS/16 GM MDI EACHNARE SCH (14:57)
--- NOTE | 2017-01-29 15:12 | GPN ---
[f rep st] PROCEDURE NOTE DATE OF PROCEDURE: 01/29/2017 PROCEDURE PERFORMED: Esophagogastroduodenoscopy and biopsy. INDICATION: Melena, posthemorrhagic anemia. PREOPERATIVE DIAGNOSIS: Rule out peptic ulcer disease. POSTOPERATIVE DIAGNOSIS: 1. Mild gastritis with a small amount of adherent heme present. 2. No ulcers or masses. 3. Normal esophagus. 4. Normal duodenum. INFORMED CONSENT: I had a detailed discussion with the patient regarding the procedure, alternative s, benefits, and risks, including bleeding, perforation, infection, risk of medication. Informed co nsent was signed and witnessed. COMPLICATIONS: None immediate. MEDICATIONS USED: IV, general. Dr. Mahmood, DESCRIPTION OF PROCEDURE: After adequate sedation, the patient was in left lateral decubitus positi on and I advanced the forward-viewing upper endoscope through his oropharynx and down his esophagus. The esophageal mucosa was normal. The endoscope was advanced in the stomach. There were no ulcer s or masses. There is small amount of adherent heme located in the distal body, proximal antrum. T here was gastritis noted in this area. The endoscope was advanced through the normal-looking pyloru s. The duodenal bulb and sweep were normal. I advanced down to the 3rd and 4th portion of the duod enum. There were no ulcerations or lesions noted. The endoscope was withdrawn back in the stomach. Retroflex examination was performed. The endoscope was retroflexed and biopsies were taken of the antrum and distal body for histologic review. The endoscope was then completely withdrawn, confirming the above findings. The patient tolerated t he procedure well and was transferred to recovery in satisfactory condition. IMPRESSION: 1. Mild gastritis with adherent heme. 2. Normal esophagus. 3. Normal duodenum. RECOMMENDATIONS: 1. Continue PPI b.i.d. for 2 weeks then daily thereafter for an additional 8 weeks. Long-term acid reducing medication may be considered if the patient needs to be on aspirin, nonsteroidal anti-infl ammatory drugs. 2. Follow up biopsy. If H pylori negative, check serology. If positive, treat for eradication and document eradication 3 months after therapy with stool antigen test when he is off PPI therapy for at least 2 weeks. 3. Advance diet. 4. Okay to start anticoagulation if necessary as per Hematology. I did not see any significant ble eding lesion. Obviously, there can be other lesions in his small intestine. I do not think this is a colonic blood loss, as his BUN/creatinine ratio increased at the same time as his melena occurred and hemoglobin/hematocrit decreased. 5. Further recommendations to follow results of above and clinical course. It is certainly possible that the gastritis has healed up over the last 48-72 hours. It is possible that he could have had that amount of blood loss from worse gastritis a few days ago and with the h eparin that he had during his operation. As noted above, the elevated BUN/creatinine ratio coinciding with melena and decreased hemoglobin an d hematocrit are very suggestive of an upper GI bleed. It is possible that he has proximal small mady wel lesions that I did not reach that could account for the bleeding. However, it is more likely th at the abnormality I saw in the stomach accounts for his blood loss and that the abnormality has hea led up over the last 48-72 hours with PPI therapy. Thank you for allowing us to participate in this patient's healthcare. Do not hesitate to call with any questions. /[id number]/MODL
[2017-01-29 19:45] LABS: POTASSIUM 3.8 mEq/L (3.5-5.2)
[2017-01-29 20:05] LABS: HEMATOCRIT 29.8 % (40.0-51.0)
[2017-01-29] MEDS: traMADol 50 MG TAB PO PRN (21:13)
[2017-01-29] MEDS: HYDROCODONE/APAP 5/325 TAB PO PRN (21:13)
[2017-01-29 21:41] LABS: INR 3.5 (0.83-1.16); PROTIME(PATIENT) 35.7 SEC (12.0-15.0)
[2017-01-29 21:43] LABS: APTT 81.1 SEC (23.0-38.0)
[2017-01-30] MEDS: HYDROCODONE/APAP 5/325 TAB PO PRN (00:26)
[2017-01-30 02:39] LABS: POTASSIUM 3.6 mEq/L (3.5-5.2)
[2017-01-30] MEDS: POTASSIUM Cl (KCl) 50 ML IV SCH ×3 (03:00→04:15)
[2017-01-30] MEDS: ARGATROBAN 250 MG in NS 250 ML IV SCH ×2 (05:34→14:49)
[2017-01-30 05:57] LABS: HEMATOCRIT 28.4 % (40.0-51.0); HEMOGLOBIN 9.5 g/dL (13.7-17.5); MEAN CELL HEMOGLOBIN 31.3 pg (27.9-34.1); MEAN CELL HEMOGLOBIN CONCENTR. 33.5 g/dL (32.4-36.7); MEAN CELL VOLUME 93.4 fL (81.5-99.8); RED BLOOD CELL COUNT 3.04 10^6/uL (4.40-6.38); RED CELL DISTRIBUTION WIDTH 17.1 % (11.5-15.2)
[2017-01-30 06:05] LABS: INR 3.74 (0.83-1.16); PROTIME(PATIENT) 37.6 SEC (12.0-15.0)
[2017-01-30 06:07] LABS: APTT 84.5 SEC (23.0-38.0)
[2017-01-30 06:12] LABS: ANION GAP 5 mEq/L (8-16); CALCIUM 7.6 mg/dL (8.5-10.4); CARBON DIOXIDE 27 mEq/l (22-31); CHLORIDE 107 mEq/L (97-110); CREATININE 0.7 mg/dL (0.7-1.3); GLOMERULAR FILTRATION RATE > 60; GLUCOSE 92 mg/dL (70-100); POTASSIUM 4.1 mEq/L (3.5-5.2); SODIUM 139 mEq/L (134-144)
--- NOTE | 2017-01-30 07:40 | SOAPPROG ---
SOAP Progress Note Assessment/Plan: Assessment: POD#5 Ascending aortic and arch replacement under hypothermic circ arrest, right axillary artery cannulation. Pacer pocket revision. Prophylactic LLAA. TEVAR through RFA cutdown. Thoracic aortic aneurysm - s/p combined elephant trunk repair and endograft. - BP control preferentially with BB. - Routine postop CTA today, R/O endoleak. - Tx to PCU. Acute blood loss anemia with thrombocytopenia, coagulopathy, and heme+ stool - No significant drop in H/H. - 5U PRBC, 2U FFP, 1U platelets to correct coagulopathy. - HIT panel pending. Hematology following. "Intermediate" risk of HIT and started on Argatrobran. Plt count on the rise. - Gastritis per EGD. Started on BID PPI. Urethral stricture s/p dilation - Voiding urine without difficulty Presence of PPM - for AVB. - Interrogated post-op and functioning well. Intermittent Apacing. 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 Happy to have food. Improving mobility. Objective: Vital Signs Temp Pulse Resp BP Pulse Ox 37.3 C 82 16 122/57 H 94 01/30/17 04:00 01/30/17 06:00 01/30/17 06:00 01/30/17 06:00 01/30/17 06:00 Laboratory Results 01/30/17 05:40 01/30/17 05:40 01/29/17 01/30/17 01/31/17 05:59 05:59 05:59 Intake Total 750 1222 Output Total 1700 1050 Balance -950 172 PT 37.6 SEC (12.0-15.0) H 01/30/17 05:40 INR 3.74 (0.83-1.16) H 01/30/17 05:40 Stable HR, rhythm and BP. Minimal supplemental O2. Adequate fluid balance. Labs ok. Physical Exam - Physical Exam General Appearance: alert, no apparent distress Respiratory: crackles (bases) Cardiac/Chest: regular rate, rhythm, other (Sternum grossly stable. Rt pacer incision CDI, richard intact. Sternotomy, B/L groins ok.) Peripheral Pulses: 2+: dorsalis-pedis (R), dorsalis-pedis (L) Abdomen: non-tender, soft Skin: warm/dry Extremities: swelling (trace) ICD10 Worksheet Patient Problems: Problems Problem Status Onset Acute blood loss anemia Acute Coronary artery disease (CAD) excluded Acute Hypotension Acute Pre-syncope Acute S/P thoracic aortic aneurysm repair Acute ~01/25/17 Urethral stricture Acute Thoracic aortic aneurysm Chronic Pacemaker Acute
[2017-01-30] MEDS ORDERED: IOPAMIDOL (ISOVUE 370) 100 ML BTL IV ONE (08:19)
[2017-01-30] MEDS ORDERED: SENNOSIDES/DOCUSATE SODIUM TAB PO PRN (09:00)
[2017-01-30] MEDS: METOPROLOL TARTRATE 25 MG TAB PO SCH ×2 (10:07→20:37)
[2017-01-30] MEDS: PANTOPRAZOLE SODIUM 40 MG TAB PO SCH ×2 (10:08→20:37)
[2017-01-30] MEDS: FLUTICASONE NASAL 120 SPRAYS/16 GM MDI EACHNARE SCH (10:08)
[2017-01-30 13:11] LABS: POTASSIUM 3.9 mEq/L (3.5-5.2)
--- NOTE | 2017-01-30 13:42 | SOAPPROG ---
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 2.) Recent GIB, with EGD yesterday neg. for active bleeding 3.) Recent CV surgery, in need of AC, complicated by above issues. Plan: 1.) On low dose Argatroban ( 0.2 mcg/kg/min IV). 2.) Follow labs and clinically for bleeding/GIB 3.) Await HIT panel- as of 01/30/17: [facility] lab reports that [facility] assay still not yet reported. 4.) Follow PLT trend. Of note, Platelet count has increased in past 24 hours, from 55 to 76. Hgb has gone from 10.2 yesterday to 9.5 today. 5.) Will follow. 01/30/17 13:42 Subjective: Resting comfortably and starting to take in full liquid diet without distress. at bedside states he is having no additional symptoms and is resting comfortably. Objective: Afebrile,VSS as noted here HEENT- anicteric, no facial assymetry Neck- supple Chest- clear anteriorly, bilat. CVS- RSR, no extra HS ABD- soft, NT, BS+ EXT- strong peripheral pulses, no LE edema. Labs as noted here. HIT panel is still pending as of review with [facility] lab this afternoon. Vital Signs Temp Pulse Resp BP Pulse Ox 36.7 C 84 22 H 129/54 H 98 01/30/17 12:00 01/30/17 12:00 01/30/17 12:00 01/30/17 12:00 01/30/17 12:00 Laboratory Results 01/30/17 05:40 01/30/17 12:25 01/29/17 01/30/17 01/31/17 05:59 05:59 05:59 Intake Total 750 1222 Output Total 1700 1050 Balance -950 172 PT 37.6 SEC (12.0-15.0) H 01/30/17 05:40 INR 3.74 (0.83-1.16) H 01/30/17 05:40 ICD10 Worksheet Patient Problems: Problems Problem Status Onset Acute blood loss anemia Acute Coronary artery disease (CAD) excluded Acute Hypotension Acute Pre-syncope Acute S/P thoracic aortic aneurysm repair Acute ~01/25/17 Urethral stricture Acute Thoracic aortic aneurysm Chronic Pacemaker Acute
[2017-01-30] MEDS: POTASSIUM Cl (KCl) 100 ML IV SCH ×2 (13:46→15:52)
[2017-01-30] MEDS ORDERED: FUROSEMIDE 40 MG/4 ML VIAL IVP ONE (13:55)
[2017-01-30] MEDS ORDERED: POTASSIUM CL 20 MEQ TAB PO ONE ×2 (13:55→20:40)
--- NOTE | 2017-01-30 17:23 | SOAPPROG ---
SOAP Progress Note Assessment/Plan: Assessment:Plan: 1) melena - likely from gastritis and heparin at time of surgery. EGD unimpressive. no recurrent bleeding, on PPI, on therapy for poss HIT as per hematology BUN/CR ratio decreasing and H/H stable (BUN 35 to 30 to 21) I think rebleed risk is very low I will sign off but follow labs on computer please contact me for ani rebleeding thank you Subjective: cc- melena, UGI bleed post hemorrhagic anemia pt feeling OK today moved rooms, at bedside no overt blood loss Objective: Vital Signs Temp Pulse Resp BP Pulse Ox 36.5 C 90 16 129/74 H 95 01/30/17 15:00 01/30/17 15:00 01/30/17 15:00 01/30/17 15:00 01/30/17 15:00 Laboratory Results 01/30/17 05:40 01/30/17 12:25 01/29/17 01/30/17 01/31/17 05:59 05:59 05:59 Intake Total 750 1222 109 Output Total 1700 1050 475 Balance -950 172 -366 PT 37.6 SEC (12.0-15.0) H 01/30/17 05:40 INR 3.74 (0.83-1.16) H 01/30/17 05:40 CTA S1S2 +BS, soft Laboratory Tests 01/27/17 01/28/17 01/28/17 16:38 05:32 05:32 Hgb 8.9 L Hct 26.1 L BUN 35 H 30 H Creatinine 1.1 0.9 01/29/17 01/29/17 01/30/17 06:45 19:50 05:40 Hgb 10.2 L 10.0 L Hct 29.9 L 29.8 L BUN 21 Creatinine 0.7 01/30/17 05:40 Hgb 9.5 L Hct 28.4 L BUN Creatinine ICD10 Worksheet Patient Problems: Problems Problem Status Onset Acute blood loss anemia Acute Coronary artery disease (CAD) excluded Acute Hypotension Acute Pre-syncope Acute S/P thoracic aortic aneurysm repair Acute ~01/25/17 Urethral stricture Acute Thoracic aortic aneurysm Chronic Pacemaker Acute
[2017-01-30 17:44] LABS: HEPARIN INDUCED ANTIBODY Negative (Negative); HEPARIN-PF4 IgG ANTIBODY ELISA < 0.075 OD (<0.400)
[2017-01-30 19:03] LABS: POTASSIUM 3.6 mEq/L (3.5-5.2)
[2017-01-31] MEDS: HYDROCODONE/APAP 5/325 TAB PO PRN ×4 (01:19→20:49)
[2017-01-31 06:12] LABS: ABSOLUTE NRBC COUNT 0.03 10^3/uL (0-0.01); ADD DIFF? YES; ADD MORPH? NO; ADD SCAN? NO; ATYPICAL LYMPHOCYTE FLAG 0 (0-99); FRAGMENT RBC FLAG 0 (0-99); HEMATOCRIT 30.6 % (40.0-51.0); HEMOGLOBIN 10.3 g/dL (13.7-17.5); LEFT SHIFT FLG 20 (0-99); LIPEMIA HEMOLYSIS FLAG 80 (0-99); MEAN CELL HEMOGLOBIN 31.5 pg (27.9-34.1); MEAN CELL HEMOGLOBIN CONCENTR. 33.7 g/dL (32.4-36.7); MEAN CELL VOLUME 93.6 fL (81.5-99.8); MEAN PLATELET VOLUME 10.5 fL (8.7-11.7); NRBC-AUTO% 0.2 % (0.0-0.2); PLATELET CLUMPS FLAG 0 (0-99); PLATELET COUNT 134 10^3/uL (150-400); RED BLOOD CELL COUNT 3.27 10^6/uL (4.40-6.38); RED CELL DISTRIBUTION WIDTH 16.3 % (11.5-15.2)
[2017-01-31 07:05] LABS: PLATELET ESTIMATE DECREASED (ADEQ); POLYCHROMASIA 1+
[2017-01-31 07:06] LABS: ANION GAP 6 mEq/L (8-16); CALCIUM 8.2 mg/dL (8.5-10.4); CARBON DIOXIDE 26 mEq/l (22-31); CHLORIDE 105 mEq/L (97-110); CREATININE 0.8 mg/dL (0.7-1.3); GLOMERULAR FILTRATION RATE > 60; GLUCOSE 101 mg/dL (70-100); SODIUM 137 mEq/L (134-144)
--- NOTE | 2017-01-31 07:51 | SOAPPROG ---
SOAP Progress Note Assessment/Plan: POD #6: Ascending aorta and arch replacement, TEVAR descending aorta aneurysm through RFA cutdown, ligation CANDIS, right axillary cannulation with right pacer pocket revision Ascending/aortic arch aneurysm s/p repair - Continue BB Descending aortic aneurysm s/p TEVAR - Mgmt as per aorta repair - No leak as per post-op CTA chest Acute blood loss anemia with coagulopathy, with occult blood in stool - Stable s/p 2U PRBC, 2U FFP, 1U platelets post-operatively without transfusions since Thrombocytopenia - HIT negative - Argatroban x 4 days during Coumadin bridge Urethral stricture s/p dilation - Voiding urine without difficulty h/o AV block with PPM implantation - Interrogated post-op and functioning well Dysphagia - Continue dysphagia 2 diet Disposition - Home with services vs SNF 01/31/17 09:49 Subjective: Denies pain/SOB. Objective: Vital Signs Temp Pulse Resp BP Pulse Ox 36.6 C 71 14 120/70 98 01/31/17 04:00 01/31/17 04:00 01/31/17 04:00 01/31/17 04:00 01/31/17 04:00 Laboratory Results 01/31/17 06:00 01/31/17 06:00 01/30/17 01/31/17 02/01/17 05:59 05:59 05:59 Intake Total 1222 329 134 Output Total 1050 2005 Balance 172 -1676 134 PT 37.6 SEC (12.0-15.0) H 01/30/17 05:40 INR 3.74 (0.83-1.16) H 01/30/17 05:40 Physical Exam - Physical Exam General Appearance: WD/WN, alert, no apparent distress EENT: No scleral icterus (R), No scleral icterus (L) Neck: normal inspection Respiratory: No respiratory distress Cardiac/Chest: regular rate, rhythm Abdomen: non-tender, soft, No distended Skin: normal color, warm/dry Extremities: No pedal edema Neuro/Psych: no motor/sensory deficits, alert, normal mood/affect, oriented x 3 ICD10 Worksheet Patient Problems: Problems Problem Status Onset Acute blood loss anemia Acute Coronary artery disease (CAD) excluded Acute Hypotension Acute Pre-syncope Acute S/P thoracic aortic aneurysm repair Acute ~01/25/17 Urethral stricture Acute Thoracic aortic aneurysm Chronic Pacemaker Acute
[2017-01-31] MEDS: PANTOPRAZOLE SODIUM 40 MG TAB PO SCH ×2 (09:39→20:50)
[2017-01-31] MEDS: METOPROLOL TARTRATE 25 MG TAB PO SCH (09:39)
[2017-01-31] MEDS: FLUTICASONE NASAL 120 SPRAYS/16 GM MDI EACHNARE SCH (09:41)
[2017-01-31] MEDS ORDERED: NS 500 ML IV ONE (11:28)
[2017-01-31] MEDS: ARGATROBAN 250 MG in NS 250 ML IV SCH (15:30)
--- NOTE | 2017-01-31 15:43 | SOAPPROG ---
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 2.) Recent GIB, with EGD yesterday neg. for active bleeding 3.) Recent CV surgery, in need of AC, complicated by above issues. Plan: 1.) On low dose Argatroban ( 0.2 mcg/kg/min IV). At this point, he needs a bridge between start of warfarin on 01/31/17 with its therapeutic efficacy expected after 4-5 days dosing and I would either continue Argatroban or consider Arixtra in a short term bridging format. I would not want this patient on either a LMWH or Heparin due to clinical concern this was HIT despite Neg. HIT assay. Warfarin started today. Timing of Tx d/w patient's family at the bedside. 2.) Follow labs and clinically for bleeding/GIB Recent EGD shows small amount of clotted blood present along gastric mucosa. No active bleeding. 3.) Follow PLT trend. Of note, Platelet count has increased in past 48 hours, from 55 to 76 to 134. Hgb has gone from 10.2 to 9.5 to 10.3 today. 5.) Will follow. 01/31/17 15:43 Subjective: Had made progress with transfer to step down unit, and with increased diet and ambulation. Objective: VSS, afebrile Family at bedside. HEENT- benign Neck- supple Chest- incisions dry and intact Chest clear anteriorly CVS- RSR, no extra HS ABD- soft, NT, BS+, no HSM EXT- no edema or petechiae. warm, well perfused Labs as noted here: PLT up to 134, Hgb 10.3 Cr 0.8 HIT assay is Neg. Vital Signs Temp Pulse Resp BP Pulse Ox 36.9 C 68 23 H 76/48 L 97 01/31/17 11:10 01/31/17 11:10 01/31/17 11:10 01/31/17 11:10 01/31/17 11:10 Laboratory Results 01/31/17 06:00 01/31/17 06:00 01/30/17 01/31/17 02/01/17 05:59 05:59 05:59 Intake Total 1222 329 134 Output Total 1050 2005 400 Balance 172 -2306 -266 PT 37.6 SEC (12.0-15.0) H 01/30/17 05:40 INR 3.74 (0.83-1.16) H 01/30/17 05:40 ICD10 Worksheet Patient Problems: Problems Problem Status Onset Acute blood loss anemia Acute Coronary artery disease (CAD) excluded Acute Hypotension Acute Pre-syncope Acute S/P thoracic aortic aneurysm repair Acute ~01/25/17 Urethral stricture Acute Thoracic aortic aneurysm Chronic Pacemaker Acute
[2017-01-31] MEDS: WARFARIN SODIUM 2 MG TAB PO SCH (16:36)
[2017-01-31 18:29] LABS: POTASSIUM 3.7 mEq/L (3.5-5.2)
[2017-01-31] MEDS ORDERED: POTASSIUM CL 20 MEQ TAB PO ONE (19:15)
[2017-02-01 05:29] LABS: HEMATOCRIT 30.4 % (40.0-51.0); HEMOGLOBIN 10.3 g/dL (13.7-17.5); MEAN CELL HEMOGLOBIN CONCENTR. 33.9 g/dL (32.4-36.7); MEAN CELL VOLUME 94.4 fL (81.5-99.8); RED BLOOD CELL COUNT 3.22 10^6/uL (4.40-6.38); RED CELL DISTRIBUTION WIDTH 16.1 % (11.5-15.2)
[2017-02-01 05:40] LABS: POTASSIUM 3.8 mEq/L (3.5-5.2)
[2017-02-01] MEDS: FLUTICASONE NASAL 120 SPRAYS/16 GM MDI EACHNARE SCH (06:57)
[2017-02-01] MEDS ORDERED: POTASSIUM CL 20 MEQ TAB PO ONE (07:52)
--- NOTE | 2017-02-01 07:52 | SOAPPROG ---
SOAP Progress Note Assessment/Plan: POD #7: Ascending aorta and arch replacement, TEVAR descending aorta aneurysm through RFA cutdown, ligation CANDIS, right axillary cannulation with right pacer pocket revision Ascending/aortic arch aneurysm s/p repair - BB held d/t low BP Descending aortic aneurysm s/p TEVAR - Mgmt as per aorta repair - No leak as per post-op CTA chest Acute blood loss anemia with coagulopathy, with occult blood in stool - Stable s/p 2U PRBC, 2U FFP, 1U platelets post-operatively without transfusions since Thrombocytopenia - HIT negative - Argatroban to Coumadin bridge in process Urethral stricture s/p dilation - Voiding urine without difficulty h/o AV block with PPM implantation - Interrogated post-op and functioning well Dysphagia - Continue dysphagia 2 diet Disposition - Home with services vs SNF once Coumadin therapeutic Subjective: Couldn't sleep last night. Has some back pain but the narcotics make him sleepy. Objective: Vital Signs Temp Pulse Resp BP Pulse Ox 36.8 C 90 21 H 121/66 H 96 02/01/17 04:00 02/01/17 04:00 02/01/17 04:00 02/01/17 04:00 02/01/17 04:00 Laboratory Results 02/01/17 05:12 02/01/17 05:12 01/31/17 02/01/17 02/02/17 05:59 05:59 05:59 Intake Total 329 888 Output Total 20045 Balance -1676 -137 PT 37.6 SEC (12.0-15.0) H 01/30/17 05:40 INR 3.74 (0.83-1.16) H 01/30/17 05:40 Physical Exam - Physical Exam General Appearance: WD/WN, alert, no apparent distress EENT: No scleral icterus (R), No scleral icterus (L) Neck: normal inspection Respiratory: No respiratory distress Cardiac/Chest: regular rate, rhythm Abdomen: non-tender, soft, No distended Skin: normal color, warm/dry Extremities: pedal edema (trace) Neuro/Psych: no motor/sensory deficits, alert, normal mood/affect, oriented x 3 ICD10 Worksheet Patient Problems: Problems Problem Status Onset Acute blood loss anemia Acute Coronary artery disease (CAD) excluded Acute Hypotension Acute Pre-syncope Acute S/P thoracic aortic aneurysm repair Acute ~01/25/17 Urethral stricture Acute Thoracic aortic aneurysm Chronic Pacemaker Acute
[2017-02-01] MEDS ORDERED: POTASSIUM CL 10 MEQ TAB PO ONE (08:30)
[2017-02-01] MEDS: PANTOPRAZOLE SODIUM 40 MG TAB PO SCH ×2 (09:03→20:45)
[2017-02-01] MEDS: ACETAMINOPHEN 325 MG TAB PO PRN (09:03)
--- NOTE | 2017-02-01 13:22 | SOAPPROG ---
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 2.) Recent GIB, with EGD yesterday neg. for active bleeding 3.) Recent CV surgery, in need of AC, complicated by above issues. Plan: 1.) On low dose Argatroban ( 0.2 mcg/kg/min IV). At this point, he needs a bridge between start of warfarin on 01/31/17 with its therapeutic efficacy expected after 4-5 days dosing and I would either continue Argatroban or consider Arixtra in a short term bridging format. I would not want this patient on either a LMWH or Heparin due to clinical concern this was HIT despite Neg. HIT assay. Warfarin started today. Timing of Tx d/w patient's family at the bedside. 2.) Follow labs and clinically for bleeding/GIB Recent EGD shows small amount of clotted blood present along gastric mucosa. No active bleeding. 3.) Follow PLT trend. Of note, Platelet count has increased in past 4 days, from 37 to 55 to 76 to 134 to 180 today.. Hgb has gone from 10.2 to 9.5 to 10.3 today. 4.) As per Cardiology Service- utilize Argatroban as bridge to full dose, therapeutic warfarin. Warfarin admin. continues daily. 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 5.) Will sign off. Recontact our service as noted. 02/01/17 13:19 Subjective: Feeling stronger, with no bleeding reported. Ambulating, getting out of bed easily, and increasing diet. at bedside to verify improvement. Objective: VSS, Afebrile as noted here. HEENT- anicteric, no oral lesions. Neck - supple Chest - lungs clear, Incisions healing well. CVS- RSR, no extra HS ABD- soft, NT, no mass EXT- minimal LE edema. Labs: Note that Platelet count up to 180,000. Hgb 10.3 Vital Signs Temp Pulse Resp BP Pulse Ox 36.9 C 81 13 99/63 L 90 L 02/01/17 12:00 02/01/17 12:00 02/01/17 12:00 02/01/17 12:00 02/01/17 12:00 Laboratory Results 02/01/17 05:12 02/01/17 05:12 01/31/17 02/01/17 02/02/17 05:59 05:59 05:59 Intake Total 329 888 240 Output Total 2004 1025 525 Balance -1676 -137 -285 PT 37.6 SEC (12.0-15.0) H 01/30/17 05:40 INR 3.74 (0.83-1.16) H 01/30/17 05:40 ICD10 Worksheet Patient Problems: Problems Problem Status Onset Acute blood loss anemia Acute Coronary artery disease (CAD) excluded Acute Hypotension Acute Pre-syncope Acute S/P thoracic aortic aneurysm repair Acute ~01/25/17 Urethral stricture Acute Thoracic aortic aneurysm Chronic Pacemaker Acute
--- NOTE | 2017-02-01 14:37 | GOP ---
[f rep st] OPERATIVE REPORT DATE OF OPERATION: 01/25/2017 SURGEON: Arslan Pelaez DO [employer] REPRESENTATIVE: Josee Foster P.A.-C. Co-surgeon on the endo graft was Len Lamas. ANESTHESIOLOGIST: Giorgio Brown. 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 POSTOPERATIVE DIAGNOSIS: 1. 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 2. Evidence of hemopericardium consistent with contained rupture within. PROCEDURE PERFORMED: 1. Replacement of ascending aorta, transverse arch and proximal descending thoracic aorta with a #2 4 Hemashield graft. 2. Reimplantation of the left carotid and the left subclavian artery via Y graft, with proximal jacinto stomosis brought off the ascending aorta in a retroaortic fashion. 3. Reimplantation of innominate artery. 4. Right common femoral artery thoracic endograft as a combined procedure with Dr. Manoj Jackson from Radiology on the endograft only. 5. Right axillary artery end-to-side graft with primary closure for cannulation. 6. Left common femoral artery cutdown with repair. FINDINGS: This gentleman presented with an initially asymptomatic incidental finding of a transvers e arch and proximal descending thoracic aneurysm measuring greater than 7 cm, which was being evalua brendan and worked up as an outpatient. He re-presented to the hospital during the outpatient evaluatio n several days prior to surgery with new onset of severe left-sided face pain and some mild hoarsene ss. This gentleman re-presented with symptoms of left-sided face pain, left neck pain and some hoar seness. Repeat CAT scan showed no change, but my suspicion actually early on was that this was a ch ronic contained rupture and that possibly expansion or new pressure was causing his face symptoms. He also presented with hypertension, which was transient. He was brought to my attention. After being admitted to the hospital, I again repeated his CAT scan, with no change. But, given the new onset of atypical unusual symptoms with no other identifiable source, I felt that we should pro ceed with surgery given the fact this may in fact represent symptoms from the aneurysm. DESCRIPTION OF PROCEDURE: He was brought to the operating room after consent was obtained and intub ated. Monitoring lines were placed. He was prepped and draped in sterile classical manner, includi ng a right radial A line and a right common femoral artery A line. I then exposed the left groin for subsequent endograft placement, exposing the artery only. A garibay otomy was performed and upon entering the pericardium, was met with a fair amount of dark blood unde r pressure. Initially, I was concerned that he had ruptured into the pericardium with free rupture, although no further blood was found after draining that. He remained hemodynamically stable. I ex posed the aneurysm, which was involving almost the entire chest cavity, displacing his heart to the left. Ascending aorta was 4.5 to 4.6 cm in diameter. He had very mild to trace aortic insufficienc y with otherwise good cardiac valvular, ventricular and coronary status. I then exposed his right a xillary artery after explanting his recently placed pacemaker in that site, went down through the mu scle and exposed the axillary artery and sewed an 8 mm Hemashield graft end-to-side after hepariniza tion. I then placed the arterial cannula in that site. I also revised his pacemaker pocket in orde r to have it set lower at his request away from his clavicle. I then placed a right atrial cannula and a retrograde catheter. Cardiopulmonary bypass was then begun. When he fibrillated, an LV sump was placed to prevent LV dis tention. We continued cooling with EEG monitoring until we had a flat line EEG and well over an lisa r of cooling with a flat line EEG, nasopharyngeal temperature of 18 degrees and a bladder temperatur e approaching that as well. I then had encircled the innominate and left carotid artery. The left subclavian I could not get to because of the aneurysm was markedly displaced and not easily seen fro m the sternotomy, with reluctance to manipulate the aneurysm while flow was going through it. I the n placed a cross-clamp on the left carotid and the innominate artery, which were soft and without ob vious plaque. I then continued antegrade cerebral perfusion via the right axillary artery at 10 mL/ kg, maintaining a pressure greater than 60 at 18 degrees centigrade. I then opened the ascending ao rta and extended up into the arch just distal to the innominate artery connection, staying well away from any nerve structures, recurrent, vagus or phrenic. I then placed an occlusion balloon in the left subclavian to prevent any steal phenomena, and continued to perfuse the brain at that time temp erature. The head had also been packed in ice and medical therapy for hypothermic arrest was also a dministered by Anesthesia. Inspecting the arch revealed it was enlarged to 4.5 cm to 5 cm. Beyond the arch, I could see the wall of the aneurysm thrombus extending up toward the apex of the left jennifer st. I stayed away from that area. Because there was no wall remaining after the left subclavian ar flavia, I decided to transect the aorta more proximal where I could have a safe sewing area for an jordan phant trunk procedure between the innominate and the left carotid. The aorta was actually intact th ere. I invaginated a 24 Hemashield graft after placing a sternal wire and the distal elephant trunk portion at the orifice in order to maintain it being open as well as easy to see for placement of t he endograft. Approximately 5 or 6 inches were extended down into the left chest in the aorta. I мария pimentel did an anastomosis of this invaginated graft in elephant trunk fashion with felt reinforcement o n the outside with a 2 layer closure of 3-0 Prolene. I felt this was hemostatic. I then pulled the invaginated portion of the graft out of the descending thoracic aorta. There was continues blood e manating out of the aorta and I attempted to occlude this with a sponge in order to partially perfus e the lower body with that blood rather than sucking it out. Prior to finishing the anastomosis, I had removed the occlusion balloon in the left subclavian. I then, with gentle pressure on the arch and aneurysm, was able to isolate the proximal portion of the left subclavian artery, which was gallegos sected, occluded and oversewn on the aorta with felt reinforcement. I then used a Y-graft into anas tomosis the left carotid and the left subclavian artery end-to-end to a Hemashield Y graft, which I believe is a 12/8 mm graft, and then back clamped that after both anastomoses were checked and reinf orced in order to continue perfusion of the brain. The innominate artery base lined up perfectly wi th the graft, and that was sewn end-to-side into the Hemashield graft after creating an opening with in an I cautery. I then was able to put a cross-clamp on proximal to that in order to begin perfusi ng the lower body after the sponge was removed from the distal aorta and deairing had been performed . At this point, we had a cross-clamp on proximal to the innominate artery with cerebral perfusion being performed through the axillary artery and perfusing of the graft with a perfusion catheter debbie yung into the graft so that we were perfusing both through the subclavian and the distal thoracic aor ta. Flows were increased accordingly to maintain the pressure at 60 continuing to cool. I then per formed the proximal anastomosis of the Y graft to the ascending aorta, bringing it behind the aorta for a better lie, and then completed the end-to-end anastomosis at the sinotubular junction after in specting the valve, which had some mild calcification, but appeared to be a well-functioning, intact valve. The graft was deaired and we then removed that cross-clamp with rewarming begun. The entire patient was continued on rewarming. Cardiac activity was noted to resume. Sinus rhythm was restored. When the patient was fully rewarmed and EEG monitoring returned, although somewhat dacosta ppressed hypothermia, the patient was easily weaned from bypass in Trendelenburg deairing through th e apex and an ascending aortic vent, again perfusing through the right axillary artery. When normot hermia was achieved, the cannulas were removed. Heparin was reversed with protamine. Cannula sites were oversewn. The pericardium and thymic fat were closed over drains with 2 ventricular pacing wi res. The chest was closed in the standard fashion. Radiology, at that point, presented with Dr. Jackson, who performed angiography and placed a Lunder[place] ist wire through the left cutdown site over a sheath, and we then co-deployed a 32 mm Hemashield gra ft with good overlap both proximally and distally. We ballooned distally and with angiography, reve aled excellent coaptation of the graft, without kinking and without endoleak. The device was removed from the left groin. I repaired it primarily with 5-0 Prolene. The wound wa s closed. We then spent some time correcting his coagulopathy. He then was hemodynamically stable, without on going bleeding and with good Doppler pulses in both extremities. He was returned to the ICU in stab le condition. It should be noted that we used EECP monitoring of the legs during the endograft, and since we did n ot go down below T6, only when we clamped the femoral artery for graft placement did the EECP in the right leg disappear. However, as soon as we restored flow to the leg it came back abruptly. Consi deration of a CSF drain was initially considered. However, we finally decided it was due to a compl ete lack of blood flow with a cross-clamp and the endograft going through the right leg, and by incr easing the pressure and removing the clamp, they returned symmetrically. The patient was returned to the ICU in stable condition. /[id number]/MODL
[2017-02-01] MEDS: ARGATROBAN 250 MG in NS 250 ML IV SCH (15:41)
[2017-02-01] MEDS: WARFARIN SODIUM 2 MG TAB PO SCH (17:02)
[2017-02-01] MEDS ORDERED: FONDAPARINUX SODIUM 7.5 MG/0.6 ML SYR SC SCH (18:00)
[2017-02-01] MEDS: METOPROLOL TARTRATE 25 MG TAB PO SCH (20:42)
[2017-02-01] MEDS: HYDROCODONE/APAP 5/325 TAB PO PRN (21:51)
[2017-02-02 07:08] LABS: INR 3.4 (0.83-1.16); PROTIME(PATIENT) 34.9 SEC (12.0-15.0)
[2017-02-02 07:09] LABS: APTT 81.8 SEC (23.0-38.0)
--- NOTE | 2017-02-02 07:55 | SOAPPROG ---
SOAP Progress Note Assessment/Plan: POD #8: Ascending aorta and arch replacement, TEVAR descending aorta aneurysm through RFA cutdown, ligation CANDIS, right axillary cannulation with right pacer pocket revision Ascending/aortic arch aneurysm s/p repair - Continue BB Descending aortic aneurysm s/p TEVAR - Mgmt as per aorta repair - No leak as per post-op CTA chest Acute blood loss anemia with coagulopathy, with occult blood in stool - Stable s/p 2U PRBC, 2U FFP, 1U platelets post-operatively without transfusions since Thrombocytopenia - HIT negative - Argatroban to Coumadin bridge in process Urethral stricture s/p dilation - Voiding urine without difficulty h/o AV block with PPM implantation - Interrogated post-op and functioning well Dysphagia - Video swallow yesterday - plan is for regular diet with thin liquids and meds in puree Disposition - Plan is for home Saturday Subjective: Had issues sleeping last night. Denies pain/SOB. Objective: Vital Signs Temp Pulse Resp BP Pulse Ox 36.6 C 86 17 123/72 H 95 02/02/17 04:00 02/02/17 04:00 02/02/17 04:00 02/02/17 04:00 02/02/17 04:00 Laboratory Results 02/01/17 05:12 02/01/17 05:12 02/01/17 02/02/17 02/03/17 05:59 05:59 05:59 Intake Total 888 1154 Output Total 1025 1400 Balance -137 -246 PT 34.9 SEC (12.0-15.0) H 02/02/17 06:45 INR 3.40 (0.83-1.16) H 02/02/17 06:45 Physical Exam - Physical Exam General Appearance: WD/WN, alert, no apparent distress EENT: No scleral icterus (R), No scleral icterus (L) Neck: non-tender, normal inspection Respiratory: No respiratory distress Cardiac/Chest: regular rate, rhythm Abdomen: non-tender, soft, No distended Skin: normal color, warm/dry Extremities: No pedal edema Neuro/Psych: no motor/sensory deficits, alert, normal mood/affect, oriented x 3 ICD10 Worksheet Patient Problems: Problems Problem Status Onset Acute blood loss anemia Acute Coronary artery disease (CAD) excluded Acute Hypotension Acute Pre-syncope Acute S/P thoracic aortic aneurysm repair Acute ~01/25/17 Urethral stricture Acute Thoracic aortic aneurysm Chronic Pacemaker Acute
[2017-02-02] MEDS ORDERED: ZOLPIDEM TARTRATE 5 MG TAB PO PRN (08:08)
[2017-02-02] MEDS: PANTOPRAZOLE SODIUM 40 MG TAB PO SCH ×2 (08:15→20:58)
[2017-02-02] MEDS: METOPROLOL TARTRATE 25 MG TAB PO SCH ×2 (08:15→20:55)
[2017-02-02] MEDS: HYDROCODONE/APAP 5/325 TAB PO PRN ×2 (08:15→18:50)
[2017-02-02] MEDS: FLUTICASONE NASAL 120 SPRAYS/16 GM MDI EACHNARE SCH ×2 (08:17→08:18)
[2017-02-02] MEDS: WARFARIN SODIUM 2 MG TAB PO SCH (17:28)
[2017-02-03] MEDS: METOPROLOL TARTRATE 25 MG TAB PO SCH ×2 (08:10→19:42)
[2017-02-03] MEDS: PANTOPRAZOLE SODIUM 40 MG TAB PO SCH ×2 (08:10→19:43)
[2017-02-03] MEDS: HYDROCODONE/APAP 5/325 TAB PO PRN ×2 (08:10→19:43)
[2017-02-03] MEDS: FLUTICASONE NASAL 120 SPRAYS/16 GM MDI EACHNARE SCH (08:37)
--- NOTE | 2017-02-03 08:37 | SOAPPROG ---
SOAP Progress Note Assessment/Plan: POD #9: Ascending, transverse, and descending aortic replacement with #24 Hemashield graft, TEVAR descending aorta aneurysm through RFA cutdown, ligation CANDIS, right axillary cannulation with right pacer pocket revision Ascending/transverse/descending aneurysm s/p repair with #24 Hemashield graft - Continue BB Descending aortic aneurysm s/p TEVAR - Mgmt as per aorta repair - No leak as per post-op CTA chest Acute blood loss anemia with coagulopathy, with occult blood in stool - Stable s/p 2U PRBC, 2U FFP, 1U platelets post-operatively without transfusions since Thrombocytopenia - HIT negative - Argatroban to Coumadin bridge in process for intermediate risk. Argatroban off this AM. Urethral stricture s/p dilation - Voiding urine without difficulty h/o AV block with PPM implantation - Interrogated post-op and functioning well Dysphagia - Video swallow yesterday - continue regular diet with thin liquids and meds in puree Disposition - Home Saturday with PT 02/03/17 11:17 Subjective: Denies pain/SOB. Had a hard time sleeping last night despite taking Ambien. Objective: Vital Signs Temp Pulse Resp BP Pulse Ox 36.9 C 84 16 137/71 H 93 02/03/17 04:00 02/03/17 04:00 02/03/17 04:00 02/03/17 04:00 02/03/17 04:00 Laboratory Results 02/01/17 05:12 02/02/17 02/03/17 02/04/17 05:59 05:59 05:59 Intake Total 1154 1450 Output Total 1400 925 Balance -246 525 PT 34.9 SEC (12.0-15.0) H 02/02/17 06:45 INR 3.40 (0.83-1.16) H 02/02/17 06:45 ICD10 Worksheet Patient Problems: Problems Problem Status Onset Acute blood loss anemia Acute Coronary artery disease (CAD) excluded Acute Hypotension Acute Pre-syncope Acute S/P thoracic aortic aneurysm repair Acute ~01/25/17 Urethral stricture Acute Thoracic aortic aneurysm Chronic Pacemaker Acute
[2017-02-03 08:42] LABS: ADD DIFF? YES; ADD MORPH? NO; ADD SCAN? NO; ATYPICAL LYMPHOCYTE FLAG 0 (0-99); FRAGMENT RBC FLAG 0 (0-99); HEMATOCRIT 29.8 % (40.0-51.0); HEMOGLOBIN 10.1 g/dL (13.7-17.5); LEFT SHIFT FLG 60 (0-99); LIPEMIA HEMOLYSIS FLAG 90 (0-99); MEAN CELL HEMOGLOBIN 31.9 pg (27.9-34.1); MEAN CELL HEMOGLOBIN CONCENTR. 33.9 g/dL (32.4-36.7); MEAN PLATELET VOLUME 9.9 fL (8.7-11.7); PLATELET CLUMPS FLAG 20 (0-99); PLATELET COUNT 261 10^3/uL (150-400); RED BLOOD CELL COUNT 3.17 10^6/uL (4.40-6.38); RED CELL DISTRIBUTION WIDTH 15.6 % (11.5-15.2)
[2017-02-03 10:07] LABS: HYPOCHROMIA 1+; PLATELET ESTIMATE ADEQUATE (ADEQ); POLYCHROMASIA 1+
[2017-02-03 11:13] LABS: INR 4.09 (0.83-1.16); PROTIME(PATIENT) 40.4 SEC (12.0-15.0)
[2017-02-03] MEDS: CHOLECALCIFEROL VIT D3 1,000 UNITS TAB PO SCH (11:23)
[2017-02-03] MEDS ORDERED: ZOLPIDEM TARTRATE 5 MG TAB PO PRN (11:34)
[2017-02-03 11:40] LABS: APTT 94.9 SEC (23.0-38.0)
[2017-02-03 13:33] LABS: INR 3.76 (0.83-1.16); PROTIME(PATIENT) 37.8 SEC (12.0-15.0)
[2017-02-03] MEDS: WARFARIN SODIUM 2 MG TAB PO SCH (16:53)
[2017-02-04 04:15] LABS: INR 2.53 (0.83-1.16); PROTIME(PATIENT) 27.5 SEC (12.0-15.0)
--- NOTE | 2017-02-04 11:20 | SOAPPROG ---
SOAP Progress Note Assessment/Plan: Assessment: POD#10 Ascending aortic and arch replacement under hypothermic circ arrest, right axillary artery cannulation. Pacer pocket revision. Prophylactic LLAA. TEVAR through RFA cutdown. Thoracic aortic aneurysm - s/p combined elephant trunk repair and endograft. - BP control preferentially with BB. - Routine postop CTA negative for endoleak. Acute blood loss anemia with thrombocytopenia, coagulopathy, and heme+ stool - No significant drop in H/H. - 5U PRBC, 2U FFP, 1U platelets to correct coagulopathy. - HIT neg but deemed at "Intermediate" risk of BRIA by hematology. Argatrobran bridge to Coumadin thru yest. INR in therapeutic range. Plt count stable. - Gastritis per EGD. Started on BID PPI. Urethral stricture s/p dilation - No apparent retention post garzon removal. - Some new urgency and frequency last 24 hr. Will ck UA. Presence of PPM - for AVB. - Interrogated post-op and functioning well. Intermittent Apacing. Dysphagia - occ cough when swallowing - Followed by [facility]. Advanced to regular diet w thin liquids and meds in puree. Plan: PPM richard removed. Ck UA. Stop bowel regimen. Home O2. Anticoag clinic. Ok for discharge later today. Instructions re diet, meds, activity, followup and wound care reviewed in presence of daughter. 02/04/17 09:11 Subjective: Tired today. Up last night with multiple voids. Stools loose. Eager to get home. Objective: Vital Signs Temp Pulse Resp BP Pulse Ox 36.7 C 82 20 128/67 H 92 02/04/17 04:00 02/04/17 04:00 02/04/17 04:00 02/04/17 04:00 02/04/17 04:00 Laboratory Results 02/03/17 07:50 02/01/17 05:12 02/03/17 02/04/17 02/05/17 05:59 05:59 05:59 Intake Total 1450 500 Output Total 925 250 Balance 525 250 PT 27.5 SEC (12.0-15.0) H D 02/04/17 03:55 INR 2.53 (0.83-1.16) H 02/04/17 03:55 Holding SR. Stable SBPs. Off O2 at rest, desatting during sleep. Balanced I/Os. Approaching preop wt. INR in therapeutic. Physical Exam - Physical Exam General Appearance: alert, no apparent distress Respiratory: crackles (bases) Cardiac/Chest: regular rate, rhythm, other (PPM incision CDI, mild jeffrey-staple erythema. Sternum grossly stable. Sternotomy CDI.) Peripheral Pulses: 2+: femoral (R), femoral (L) Abdomen: non-tender, soft Skin: warm/dry Extremities: other (Groins soft, no visible edema) ICD10 Worksheet Patient Problems: Problems Problem Status Onset Acute blood loss anemia Acute Coronary artery disease (CAD) excluded Acute Hypotension Acute Pre-syncope Acute S/P thoracic aortic aneurysm repair Acute ~01/25/17 Urethral stricture Acute Thoracic aortic aneurysm Chronic Pacemaker Acute
[2017-02-04] MEDS: PANTOPRAZOLE SODIUM 40 MG TAB PO SCH (11:26)
[2017-02-04] MEDS: FLUTICASONE NASAL 120 SPRAYS/16 GM MDI EACHNARE SCH (11:26)
[2017-02-04] MEDS: METOPROLOL TARTRATE 25 MG TAB PO SCH (11:26)
[2017-02-04] MEDS: CHOLECALCIFEROL VIT D3 1,000 UNITS TAB PO SCH (11:26)
[2017-02-04 11:40] VITALS: O2SAT 91
[2017-02-04 11:43] VITALS: BP 107/56; PULSE 82; RESP 17; TEMP 98.4
[2017-02-04 13:14] LABS: COLOR YELLOW; LEUKOCYTE ESTERASE,URINE NEGATIVE (NEGATIVE); NITRITE,URINE NEGATIVE (NEGATIVE)
--- NOTE | 2017-02-04 15:13 | PDDCSUM ---
Discharge Summary Discharge Summary: DATE OF ADMISSION: 01/23/17 DATE OF DISCHARGE: 02/04/17 DISPOSITION: Home with home care, RN and PT - bridge to phase III cardiac rehab as phase II disallowed by noncardiac procedure. PRINCIPAL ADMISSION DIAGNOSES: 1. Presyncope 2. Suspected expansion of thoracic aortic aneurysm. PRINCIPAL DISCHARGE DIAGNOSES: 1. Coronary artery disease excluded. 2. Left ventricular diastolic dysfunction. 3. Mild benign prostatic hypertrophy. 4. Bulbar urethral stricture. 5. Contained rupture of aortic arch aneurysm. 6. Status post dilatation of urethral stricture. 7. Status post repair of thoracic aortic aneurysm by combined elephant trunk procedure and endograft. 8. Status post revision of pacemaker pocket. 9. Status post prophylactic ligation of the left atrial appendage. 10. Acute expected blood loss anemia with thrombocytopenia and mild coagulopathy. 11. Mild gastritis. 12. Mild dysphagia. HISTORY OF PRESENT ILLNESS: 81 yo male anticipating staged repair of an incidentally discovered 7.2 cm thoracic aortic aneurysm, admitted for expedited surgical assessment after ER evaluation for malaise, hypotension, atypical chest pains and mild hoarseness concerning for aneurysmal expansion +/- leak. PERTINENT PAST MEDICAL HISTORY: 1. 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 [employer]. DDD. Lower rate 60. 2. Thoracic aortic aneurysm involving the distal transverse arch and proximal descending thoracic aorta. Incidental discovery by post pacemaker imaging. Mild dilatation of ascending aorta and brachiocephalic artery. Maximal dilatation just distal to the left subclavian artery, terminating above T6. 70% left subclavian stenosis by compression. 3. Hypertriglyceridemia. 4. Mild-moderate cerebrovascular disease. 5. Chronic sinusitis. MEDICATIONS ON ADMISSION: ASA 81 mg daily, Vitamin D3 1,000 units daily, Claritin 10mg daily, Flonase nasal spray 2 puffs each nares daily, herbal supplement daily, Mucinex 600 mg BID prn, ibuprofen 200 mg TID prn. ALLERGIES/SENSITIVITIES: NKDA CONSULTANTS: Cardiology (Willis), CV surgery (Benigno), Urology (Caden), Interventional radiology (Manuel), Pulmonology/critical care (Aubrey), Hematology (Richie), Gastroenterology (Sandy) PROCEDURES/IMAGIN/24 (Willis): Left heart catheterization with selective coronary angiography and left ventriculography. Access via right common femoral artery. Findings: No obstructive CAD. LVEF 60%. LVEDP 21. 01/23 Chest CTA: essentially unchanged to prior scans. 01/24 Carotid ultrasound: no hemodynamically significant disease; antegrade vertebral flow. 01/25 (Caden): Cystoscopy. Dilatation of bulbar urethral stricture. Placement of 16 Fr garzon catheter. 01/25 (Dunia): Median sternotomy. Repair of the ascending aorta and aortic arch with a 24 mm Hemashield graft followed by placement of a Medtronic Valiant 32 x 100 mm thoracic stent graft. Right axillary and left common femoral cannulation. Antegrade cerebral perfusion. Deep hypothermic circulatory arrest. EEG monitoring. Pacemaker pocket revision. Prophylactic ligation of the left atrial appendage. Primary repair of axillary artery after decannulation and femoral artery after TEVAR. Completion aortography. 01/29 (Sandy): Esophagogastroduodenoscopy and biopsy: normal esophagus and duodenum, mild gastritis. 01/30 Chest CTA: no endoleaks. 02/01 (Aldair) Videofluoroscopic swallow ABBREVIATED HOSPITAL COURSE BY ACTIVE PROBLEM LIST: 1. Thoracic aortic aneurysm - Intraop evidence of hemopericardium consistent with contained rupture. Repair by combined elephant trunk procedure and endograft. No apparent neurologic complications or endoleaks. BP control preferentially with BB. 2. Acute expected blood loss anemia with thrombocytopenia and coagulopathy - Exacerbated by CPB/DHCA. Stable s/p 5U PRBC, 2U FFP, and 1U platelets. Platelets slow to rebound. No evidence TTP or DIC. HIT neg but deemed at "intermediate" risk of BRIA by hematology. Up to a 12 week course of anticoagulation recommended. Argatrobran bridge to Coumadin completed. Target INR 2-3. Duration TBD. 3. BPH with urethral stricture - Intraop difficulty passing garzon catheter. Urology consulted. Mild BPH by cystoscopy. Garzon successfully placed after dilation of urethral stricture. No apparent retention post garzon removal. Some urgency and frequency approaching discharge. Precautionary UA WNL. Outpt followup with urology recommended for ongoing issues. 4. Melena - "Pill" gastritis by EGD. Antral bx neg for H. pylori and dysplasia. Started on 3 mo course of prophylactic PPI. NSAIDs to be avoided. 5. Presence of PPM - Pocket revised to deepen generator and allow for more comfortable rt arm abduction/overhead activity. Interrogated post-op and functioning well. Intermittent Apacing. 6. Dysphagia - Occ cough when swallowing. Followed by [facility]. VFSS negative for overt aspiration. Advanced to regular diet w thin liquids and meds in puree. DISCHARGE CLINICAL INFORMATION: Sternum grossly stable. Sternotomy and rt pacer pocket CDI. Bilateral groins soft, CDI. HR 70s-80s. SBP RUE 110s. SpO2 85% RA sleeping, 91% RA awake. Wt 0.5 kg above admission at 70.9 kilos. Hgb 10.1, HCT 29.8, Plt 261, Na 137, K 3.8, Cr 0.8 Coumadin flowsheet: Argatroban bridge 01/29-02/03 Date INR mg 01/31 n/d 2 02/01 n/d 2 02/02 3.4 2 02/03 3.76 2 02/04 2.53 2 DISCHARGE MEDICATIONS: As on admission with the following adjustments: Discontinue ibuprofen while on coumadin. NEW prescriptions: 1. Protonix 40 mg BID thru 02/14, then 40 mg daily x 2 months. 2. Metoprolol 12.5 mg BID. 3. Gibson 5/325 one-half to 2 pills q 4-6 hrs prn incisional discomfort. 4. Coumadin 2 mg daily or as directed by INR. 5. Oxygen @ 1-2 Lpm when asleep or as directed by SpO2. FOLLOW UP APPOINTMENTS: 1. CV surgery: with Dr Pelaez at [facility] on 02/12 at 9:45 am. 2. Pacemaker clinic: at [facility] on 02/14 at 10 am. 2. Cardiology: with Dr Pedro at [facility] in 4-6 weeks. Appointment to be established during surgical visit. 4. Gastroenterology: with Dr Delgado in 3 months as needed for recurrent melena. 5. Urology: with Dr Negrete as needed for voiding difficulties. 6. Anticoagulation clinic: at [facility] as directed once released from home care. FOLLOW UP TESTIN. INR on 02/06. Results to [facility]. 2. CBC and BMP on 02/11. Results to [facility]. 3. CXR prior to surgical appointment.
[2017-02-04] MEDS: WARFARIN SODIUM 2 MG TAB PO SCH (15:38)
--- NOTE | 2017-02-04 15:43 | PDIAF ---
- Diagnosis Diagnosis: Thoracic aortic aneurysm s/p elephant trunk procedure and endograft; PPM Code Status: Full Code - Medication Management Discharge Medications: Medications to Continue on Transfer Aspirin EC [Aspirin EC 81 mg (*)] 81 mg PO DAILY 01/22/17 [Last Taken 01/21/17] Cholecalciferol Vit D3 [Vitamin D3 (*)] 1,000 units PO DAILY 01/22/17 [Last Taken 01/21/17] Fluticasone Nasal [Flonase Nasal [place]] 2 sprays EACHNARE DAILY 01/22/17 [Last Taken 01/22/17] Herbals/Supplements -Info Only 1 ea PO DAILY 01/22/17 [Last Taken Unknown] Loratadine [Claritin 10 mg] 10 mg PO DAILY 01/22/17 [Last Taken 01/21/17] guaiFENesin [Mucinex 600 MG (*)] 600 mg PO BID PRN 01/22/17 [Last Taken 01/22/17 ] Acetaminophen [Tylenol 325mg (*)] 650 mg PO Q4HRS PRN #0 tab 02/04/17 [Last Taken Unknown] Hydrocodone/APAP 5/325 [[place] 5/325 (*)] 1 tab PO Q4HRS PRN #0 tab 02/04/17 [ Last Taken Unknown] Metoprolol Tartrate [Lopressor 25 mg (*)] 12.5 mg PO BID #0 tab 02/04/17 [Last Taken Unknown] Pantoprazole Sodium [Protonix 40mg (*)] 40 mg PO BID #0 tab 02/04/17 [Last Taken Unknown] Warfarin Sodium [Coumadin 2MG (*)] 2 mg PO DAILY AT 4PM #0 tab 02/04/17 [Last Taken Unknown] Discharge Medications: Refer to the Discharge Home Medication list for PRN reason. PICC Care - Routine: N/A - Orders Services needed: Home Care, Registered Nurse (cardiorespiratory monitoring), Physical Therapy (x 2 weeks or until strong enough for phase III cardiac rehab; sternal precautions x 3 more weeks.) Home Care Face to Face: I certify that this patient was under my care and that I had the required [id number] encounter meeting the encounter requirements on the discharge day. My findings support the fact that the patient is homebound as defined in CMS Chapter 7 Medicare Benefits Manual 30.1.1, The condition of the patient is such that there exists a normal inability to leave home and consequently, leaving home would require a considerable and taxing effort. Oxygen: prn SpO2 < 90% Diet Recommendation: sodium restricted (2 gm daily), fluid restriction (use comment for amount) (2L daily) Diet Texture: Regular Texture Diet, Thin Liquids, Meds Whole in Puree Weigh Patient: daily Wound Care Instructions: Daily soap and water. Leave open to air. avoid underwater immersion until eschar off. avoid ointments until eschar off Sutures/Anny Site: sternum, rt upper chest, rt groin Activity/Weight Bearing Restrictions: Avoid lifting > 10 lbs with an outstretched arm. Avoid push pull activities Additional: Call [facility] for overnight wt gain > 2 lbs, weekly wt gain > 5 lbs, increased leg swelling, resting heart rate > 120, SBP < 90 or > 140, or any wound concerns - Labs/Radiology BMP Date: 02/11/17 CBC Date: 02/11/17 PT/INR Date: 02/06/17 Imaging Orders: CXR prior to surgical appointment Call or Fax Lab and Imaging Results to: [facility]: Attn Bernadette Cid - Follow Up Care Current Providers and Referrals: Shmuel Negrete MD [Medical Doctor] - (as needed for voiding difficulties) Gilbert Delgado MD [Medical Doctor] - (as needed for follow up gastritis) Mason Pedro MD [Medical Doctor] - Arslan Pelaez DO [Doctor of Osteopathy] - 02/12/17 9:45 am Abhishek Ramon MD [Medical Doctor] - 02/14/17 10:00 am Ml Diez MD [Primary Care Provider] - As per Instructions
== END 2017-02-04 16:30 | disposition home health service (06) | DRG 217 ==
LOC: F2W 15:24 → OBSVTOIN 01-23 18:05 → F2W 01-25 08:03 → F2N 01-25 08:48 → F2W 01-30 15:02
PROVIDERS: ADMIT Thoracic Surgery (Cardiothoracic Vascular Surgery); ATTEND Thoracic Surgery (Cardiothoracic Vascular Surgery)
PROC: B2111ZZ Fluoroscopy of Multiple Coronary Arteries using Low Osmolar Contrast (ICD-10-PCS; 2017-01-23)
PROC: B2151ZZ Fluoroscopy of Left Heart using Low Osmolar Contrast (ICD-10-PCS; 2017-01-23)
PROC: 4A023N7 Measurement of Cardiac Sampling and Pressure, Left Heart, Percutaneous Approach (ICD-10-PCS; 2017-01-23)
PROC: B41F1ZZ Fluoroscopy of Right Lower Extremity Arteries using Low Osmolar Contrast (ICD-10-PCS; 2017-01-23)
PROC: 03Q Upper Arteries, Repair (ICD-10-PCS; principal; 2017-01-25 07:15)
PROC: 02L70CK Occlusion of Left Atrial Appendage with Extraluminal Device, Open Approach (ICD-10-PCS; principal; 2017-01-25 07:15)
PROC: 0JWT0PZ Revision of Cardiac Rhythm Related Device in Trunk Subcutaneous Tissue and Fascia, Open Approach (ICD-10-PCS; principal; 2017-01-25 07:15)
PROC: 04QL0ZZ Repair Left Femoral Artery, Open Approach (ICD-10-PCS; principal; 2017-01-25 07:15)
PROC: 02VW3DZ Restriction of Thoracic Aorta, Descending with Intraluminal Device, Percutaneous Approach (ICD-10-PCS; principal; 2017-01-25 07:15)
PROC: 02RX0JZ Replacement of Thoracic Aorta, Ascending/Arch with Synthetic Substitute, Open Approach (ICD-10-PCS; principal; 2017-01-25 07:15)
PROC: 02B Heart and Great Vessels, Excision (ICD-10-PCS; principal; 2017-01-25 07:15)
PROC: 0T7D8ZZ Dilation of Urethra, Via Natural or Artificial Opening Endoscopic (ICD-10-PCS; 2017-01-25 07:15)
PROC: 30233R1 Transfusion of Nonautologous Platelets into Peripheral Vein, Percutaneous Approach (ICD-10-PCS; 2017-01-25 07:15)
PROC: 30233N1 Transfusion of Nonautologous Red Blood Cells into Peripheral Vein, Percutaneous Approach (ICD-10-PCS; 2017-01-25 07:15)
PROC: 30233K1 Transfusion of Nonautologous Frozen Plasma into Peripheral Vein, Percutaneous Approach (ICD-10-PCS; 2017-01-25 07:15)
PROC: 0DB68ZX Excision of Stomach, Via Natural or Artificial Opening Endoscopic, Diagnostic (ICD-10-PCS; 2017-01-29)
DX: I71.1 Thoracic aortic aneurysm, ruptured (principal); D62 Acute posthemorrhagic anemia; I51.89 Other ill-defined heart diseases; I50.30 Unspecified diastolic (congestive) heart failure; N35.9 Urethral stricture, unspecified; D69.6 Thrombocytopenia, unspecified; R13.10 Dysphagia, unspecified; K29.70 Gastritis, unspecified, without bleeding; J32.9 Chronic sinusitis, unspecified; Z95.0 Presence of cardiac pacemaker
CPT/HCPCS: 82947-QW; 86022-90; 92526-GN; 92610-GN; 92611-GN; 97116-GP; 97162-GP; 97166-GO; 97530-GO; 97530-GP; 97535-GO; C1757; C1768; C1769; C1894; G0378; G8978-GP-CM; G8979-GP-CJ; G8987-GO-CM; G8988-GO-CK; G8989-GO-CJ; G8996-GN-CH; G8996-GN-CI; G8997-GN-CH; G8998-GN-CH; J0153; J0171; J0282; J0461; J0690; J0883; J1265; J1644; J1815; J1940; J2001; J2150; J2250; J2260; J2370; J2405; J2704; J2720; J2765; J2930; J3010; J3370; J3490; J7060; P9016; P9017; P9035; P9041; Q9967

== ENCOUNTER 2017-02-12 10:45 | Observation (INO) | payer OTHER, MEDICARE ==
[2017-02-12] MEDS ORDERED: NS 1,000 ML IV ONE ×2 (11:03)
[2017-02-12 11:26] LABS: ABSOLUTE IMMATURE GRANULOCYTES 0.12 10^3/uL (0.00-0.10); ADD DIFF? NO; ADD MORPH? NO; ADD SCAN? NO; ATYPICAL LYMPHOCYTE FLAG 20 (0-99); FRAGMENT RBC FLAG 0 (0-99); HEMATOCRIT 33.5 % (40.0-51.0); HEMOGLOBIN 11.1 g/dL (13.7-17.5); LEFT SHIFT FLG 10 (0-99); LIPEMIA HEMOLYSIS FLAG 80 (0-99); MEAN CELL HEMOGLOBIN 30.9 pg (27.9-34.1); MEAN CELL HEMOGLOBIN CONCENTR. 33.1 g/dL (32.4-36.7); MEAN CELL VOLUME 93.3 fL (81.5-99.8); MEAN PLATELET VOLUME 8.9 fL (8.7-11.7); PLATELET CLUMPS FLAG 0 (0-99); PLATELET COUNT 424 10^3/uL (150-400); RED BLOOD CELL COUNT 3.59 10^6/uL (4.40-6.38); RED CELL DISTRIBUTION WIDTH 14.9 % (11.5-15.2)
--- NOTE | 2017-02-12 11:37 | EDPHY ---
H & P Time Seen by Provider: 02/12/17 10:54 HPI/ROS: Chief complaint. Low blood pressure HPI. 81-year-old male presents emergency department after referral from his cardiothoracic surgeons office for low blood pressure. Blood pressure in the office today was 90 over 60s. Patient has fatigue and chills. Aortic aneurysm repair 2 weeks ago the family notes more fatigue and decreased activity. He is able to go up and down stairs once and they felt that this was a success as he had been really quite immobile. Dr. maddie coats told the family and patient that the patient should be driving and walking a mi by this time post surgery. There is concern because of his lack of activity. No known fever. Patient had had urinary frequency last weekend despite negative urinalysis was treated with antibiotics in his urinary frequency 1 away. He had an episode of right-sided chest discomfort this morning that has resolved. Otherwise not particularly short of breath or having chest discomfort. He is dizzy on standing and has fatigue and decreased activity. Dr. Pelaez would like us to give the patient 2 L of normal saline ROS Constitutional. Generalized weakness with chills Eyes. no problems with vision ENT. no sore throat, no nasal drainage Cardiovascular. Episode of right chest pain this morning Respiratory. no shortness of breath, no cough Abdominal. no abdominal pain, no nausea/vomiting, no diarrhea . no problems urinating MS. no calf pain/swelling, no neck/back pain, no joint pain Skin. no rash Lymph. no swollen glands Neuro. Difficulty ambulating secondary to weakness Past Medical/Surgical History: Past medical history is significant for dyslipidemia, aortic aneurysm repair, pacemaker Social History: , nonsmoker, no alcohol Smoking Status: Former smoker Physical Exam: General Appearance: Alert well-developed male mild distress vital signs initially show the patient be afebrile and blood pressure 113/60 Eyes: Pupils equal and round no pallor or injection. ENT, Mouth: Mucous membranes are moist. Respiratory: There are no retractions, lungs are clear to auscultation. Cardiovascular: Regular rate and rhythm. Gastrointestinal: Abdomen is soft and nontender, no masses, bowel sounds normal. Neurological: Awake and alert, sensory and motor exams grossly normal. Skin: Warm and dry, no rashes. Musculoskeletal: Neck is supple nontender. Extremities symmetrical, full range of motion. Psychiatric: Patient is oriented X 3, there is no agitation. Constitutional: Initial Vital Signs Temperature (C) 36.7 C 02/12/17 10:48 Heart Rate 94 02/12/17 10:48 Respiratory Rate 18 02/12/17 10:48 Blood Pressure 113/69 02/12/17 10:48 O2 Sat (%) 100 02/12/17 10:48 O2 Delivery Mode Room Air O2 (L/minute) 3 Allergies/Adverse Reactions: No Known Allergies Allergy (Verified 01/22/17 12:55) Home Medications: Medication Instructions Recorded Cholecalciferol Vit D3 [Vitamin D3 1,000 units PO DAILY 01/22/17 (*)] Herbals/Supplements -Info Only 1 ea PO DAILY 01/22/17 Loratadine [Claritin 10 mg] 10 mg PO DAILY 01/22/17 Acetaminophen [Tylenol 325mg (*)] 650 mg PO Q4HRS PRN #0 tab 02/04/17 Hydrocodone/APAP 5/325 [[place] 1 tab PO Q4HRS PRN #0 tab 02/04/17 5/325 (*)] Metoprolol Tartrate [Lopressor 25 12.5 mg PO BID #0 tab 02/04/17 mg (*)] Pantoprazole Sodium [Protonix 40mg 40 mg PO BID #0 tab 02/04/17 (*)] Warfarin Sodium [Coumadin 2MG (*)] 2 mg PO DAILY AT 4PM #0 tab 02/04/17 Medical Decision Making - Diagnostics Imaging Results: Chest x-ray from this morning reviewed by me shows a small left pleural effusion that appears to be decreasing in size. Decreased left lower lobe atelectasis. No pneumonia. Resolving soft tissue inflammation density about the aortic knob. Procedures: IV normal saline with initial target of 2 L Sepsis workup ED Course/Re-evaluation: Initial lactate is 3.0. Blood cultures are obtained. Chest x-ray is reviewed. Urinalysis is ordered. 30 milliliters/kilogram fluid bolus is ordered. The lactate will automatically be repeated in 1 hour. Further evaluation discussion with the patient and family at 11:45 a.m.. We discussed lab results and recommendation for admission Repeat lactate is also elevated. Re-evaluation at 1:00 p.m.. Patient is stable however he has continued continued elevated lactate. The patient, family and I discussed admission which they agree to. I consulted and discussed case with Dr. Martines, hospitalist, who agrees to the admission Differential Diagnosis: I considered dehydration, overuse of medication, sepsis. No evidence for pneumonia or urinary tract infection however elevated white blood cell count and elevated lactate. No fever. However generalized weakness - Data Points Laboratory Results: Laboratory Results 02/12/17 11:15 02/12/17 11:15 02/12/17 02/12/17 02/12/17 12:30 12:10 11:15 WBC RBC Hgb Hct MCV MCH MCHC RDW Plt Count MPV Neut % (Auto) Lymph % (Auto) Phelps % (Auto) Eos % (Auto) Baso % (Auto) Nucleat RBC Rel Count Absolute Neuts (auto) Absolute Lymphs (auto) Absolute Monos (auto) Absolute Eos (auto) Absolute Basos (auto) Absolute Nucleated RBC Immature Gran % Immature Gran # PT INR APTT VBG Lactic Acid 2.4 mmol/L H mmol/L (0.7-2.1) Sodium Potassium Chloride Carbon Dioxide Anion Gap BUN Creatinine Estimated GFR Glucose Calcium Total Bilirubin 0.9 mg/dL mg/dL (0.1-1.4) Urine Color YELLOW Urine Appearance CLEAR Urine pH 9.0 H (5.0-7.5) Ur Specific [place] 1.008 (1.002-1.030) Urine Protein NEGATIVE (NEGATIVE) Urine Ketones NEGATIVE (NEGATIVE) Urine Blood NEGATIVE (NEGATIVE) Urine Nitrate NEGATIVE (NEGATIVE) Urine Bilirubin NEGATIVE (NEGATIVE) Urine Urobilinogen NEGATIVE EU EU (0.2-1.0) Ur Leukocyte Esterase NEGATIVE (NEGATIVE) Urine Glucose NEGATIVE (NEGATIVE) 02/12/17 02/12/17 02/12/17 11:15 11:15 11:15 WBC RBC Hgb Hct MCV MCH MCHC RDW Plt Count MPV Neut % (Auto) Lymph % (Auto) Phelps % (Auto) Eos % (Auto) Baso % (Auto) Nucleat RBC Rel Count Absolute Neuts (auto) Absolute Lymphs (auto) Absolute Monos (auto) Absolute Eos (auto) Absolute Basos (auto) Absolute Nucleated RBC Immature Gran % Immature Gran # PT 31.6 SEC H SEC (12.0-15.0) INR 3.01 H (0.83-1.16) APTT 57.9 SEC H SEC (23.0-38.0) VBG Lactic Acid 3.0 mmol/L H mmol/L (0.7-2.1) Sodium 137 mEq/L mEq/L (134-144) Potassium 4.1 mEq/L mEq/L (3.5-5.2) Chloride 100 mEq/L mEq/L (97-110) Carbon Dioxide 23 mEq/l mEq/l (22-31) Anion Gap 14 mEq/L mEq/L (8-16) BUN 12 mg/dL mg/dL (7-23) Creatinine 1.2 mg/dL mg/dL (0.7-1.3) Estimated GFR 58 Glucose 131 mg/dL H mg/dL (70-100) Calcium 9.2 mg/dL mg/dL (8.5-10.4) Total Bilirubin Urine Color Urine Appearance Urine pH Ur Specific [place] Urine Protein Urine Ketones Urine Blood Urine Nitrate Urine Bilirubin Urine Urobilinogen Ur Leukocyte Esterase Urine Glucose 02/12/17 11:15 WBC 12.41 10^3/uL H 10^3/uL (3.80-9.50) RBC 3.59 10^6/uL L 10^6/uL (4.40-6.38) Hgb 11.1 g/dL L g/dL (13.7-17.5) Hct 33.5 % L % (40.0-51.0) MCV 93.3 fL fL (81.5-99.8) MCH 30.9 pg pg (27.9-34.1) MCHC 33.1 g/dL g/dL (32.4-36.7) RDW 14.9 % % (11.5-15.2) Plt Count 424 10^3/uL H 10^3/uL (150-400) MPV 8.9 fL fL (8.7-11.7) Neut % (Auto) 79.3 % H % (39.3-74.2) Lymph % (Auto) 10.5 % L % (15.0-45.0) Phelps % (Auto) 8.2 % % (4.5-13.0) Eos % (Auto) 0.6 % % (0.6-7.6) Baso % (Auto) 0.4 % % (0.3-1.7) Nucleat RBC Rel Count 0.0 % % (0.0-0.2) Absolute Neuts (auto) 9.85 10^3/uL H 10^3/uL (1.70-6.50) Absolute Lymphs (auto) 1.30 10^3/uL 10^3/uL (1.00-3.00) Absolute Monos (auto) 1.02 10^3/uL H 10^3/uL (0.30-0.80) Absolute Eos (auto) 0.07 10^3/uL 10^3/uL (0.03-0.40) Absolute Basos (auto) 0.05 10^3/uL 10^3/uL (0.02-0.10) Absolute Nucleated RBC 0.00 10^3/uL 10^3/uL (0-0.01) Immature Gran % 1.0 % % (0.0-1.1) Immature Gran # 0.12 10^3/uL H 10^3/uL (0.00-0.10) PT INR APTT VBG Lactic Acid Sodium Potassium Chloride Carbon Dioxide Anion Gap BUN Creatinine Estimated GFR Glucose Calcium Total Bilirubin Urine Color Urine Appearance Urine pH Ur Specific [place] Urine Protein Urine Ketones Urine Blood Urine Nitrate Urine Bilirubin Urine Urobilinogen Ur Leukocyte Esterase Urine Glucose Medications Given: Discontinued Medications Sodium Chloride (Ns) 1,000 mls @ 0 mls/hr IV ONCE ONE; Wide Open PRN Reason: Protocol Stop: 02/12/17 11:04 Last Admin: 02/12/17 11:31 Dose: 1,000 mls Sodium Chloride (Ns) 1,000 mls @ 0 mls/hr IV ONCE ONE; Wide Open PRN Reason: Protocol Stop: 02/12/17 11:04 Last Admin: 02/12/17 12:13 Dose: 1,000 mls Departure - Departure Disposition: [facility] Inpatient Acute Clinical Impression: Weakness Condition: Fair Referrals: Ml Diez MD [Primary Care Provider] - As per Instructions
[2017-02-12 11:39] LABS: ANION GAP 14 mEq/L (8-16); CALCIUM 9.2 mg/dL (8.5-10.4); CARBON DIOXIDE 23 mEq/l (22-31); CHLORIDE 100 mEq/L (97-110); CREATININE 1.2 mg/dL (0.7-1.3); GLOMERULAR FILTRATION RATE 58; GLUCOSE 131 mg/dL (70-100); POTASSIUM 4.1 mEq/L (3.5-5.2); SODIUM 137 mEq/L (134-144)
[2017-02-12] MEDS ORDERED: NS 2,100 ML IV ONE (11:42)
[2017-02-12 11:47] LABS: INR 3.01 (0.83-1.16); PROTIME(PATIENT) 31.6 SEC (12.0-15.0)
[2017-02-12 11:48] LABS: APTT 57.9 SEC (23.0-38.0)
[2017-02-12 11:49] LABS: BILIRUBIN,TOTAL 0.9 mg/dL (0.1-1.4)
[2017-02-12 12:37] LABS: LACGHOST ORDER
[2017-02-12 13:08] LABS: COLOR YELLOW; LEUKOCYTE ESTERASE,URINE NEGATIVE (NEGATIVE); NITRITE,URINE NEGATIVE (NEGATIVE)
[2017-02-12] MEDS ORDERED: ONDANSETRON 4 MG/2 ML VIAL IVP PRN (14:17)
[2017-02-12] MEDS ORDERED: ACETAMINOPHEN 325 MG TAB PO PRN (14:17)
[2017-02-12] MEDS ORDERED: oxyCODONE IR 5 MG TAB PO PRN (14:17)
[2017-02-12] MEDS ORDERED: ONDANSETRON DISINTEGRATING 4 MG TAB PO PRN (14:17)
--- NOTE | 2017-02-12 15:07 | GHP ---
[f rep st] HISTORY AND PHYSICAL DATE OF ADMISSION: 02/12/2017 CHIEF COMPLAINT: Fatigue and weakness. HISTORY OF PRESENT ILLNESS: This is an 81-year-old man who is 2-1/2 weeks out from a thoracic aorti c aneurysm repair by Dr. Pelaez, who presents with weakness. His hospitalization was complicated by pill gastritis diagnosed by EGD, also diagnosed by urinary retention status post urethral stricture dilation by Dr. Negrete. Otherwise, he was discharged on warfarin for anticoagulation as well as meto prolol, both of which were new medications. Since his discharge about a week ago, he has felt very fatigued. Prior to this surgery, he was able to play 18 holes of golf pushing his golf clubs. Now he says that he almost falls asleep while watching TV. He has been treated for empiric urinary trac t infection with antibiotics for 5 days. He was previously having frequency, which is improved. He saw Dr. Pelaez today who noted his blood pressure to be low, 90s/60s, and sent him to the ED for f urther evaluation. To me, he denies any recent fevers or new rash. He has mild fleeting chest pains. He has occasiona lly felt short of breath when he is very fatigued. No nausea or vomiting. He had 3 episodes of demian rrhea yesterday after being constipated for days. In the ED, he is noted to have a lactate of 3.4 as well as being mildly hypotensive. PAST MEDICAL/SURGICAL HISTORY: 1. AV block status post pacemaker in December 2016, at which time his thoracic aneurysm was identified. 2. Thoracic aneurysm status post repair. 3. BPH. 4. Urethral stricture dilation. 5. Noted to be indeterminate risk for HIT. 6. Gastritis. MEDICATIONS: Please see medication reconciliation. ALLERGIES: None. FAMILY HISTORY: Parents are . SOCIAL HISTORY: He moved to [place] 6 years ago from [place]. Before his surgery, he was drinking ab out one alcoholic drink a day. He quit smoking. REVIEW OF SYSTEMS: A 10-point review of systems is conducted and is negative, except per HPI. PHYSICAL EXAMINATION: VITAL SIGNS: Blood pressure 119/69, heart rate 86, respiration rate 18, satu rating 100% on room air, temperature is 36.9. GENERAL: The patient is a very pleasant man who is r esting in bed. He appears comfortable. HEENT: Shows him to be normocephalic, atraumatic. CARDIOV ASCULAR: Shows a regular rate and rhythm. No murmurs, rubs, or gallops. CHEST: Shows a well-heal ing sternotomy scar. PULMONARY: Shows lungs with some bronchial breath sounds on the left side as well as mild left-sided wheezes. SKIN: Shows no rash. : Shows no Hernández. NEUROLOGIC: Shows hi m to be alert and oriented x3. He is moving all extremities. Cranial nerves 2-12 are intact. Juliana r is intact in the upper and lower extremities, 5/5. PSYCHIATRIC: Shows normal mood and affect. LABS: White count is 12.4, hemoglobin is 11. INR is 3.01. Lactate is 2.4. Basic metabolic panel is normal. Procalcitonin 0.08. Urinalysis is negative. DATA: I discussed this with Dr. Small in the emergency department. I personally viewed and inter preted his chest x-ray done earlier today. This shows postsurgical changes, thoracic aneurysm repai r. He has a mild left-sided pleural effusion. He has a right-sided pacemaker in place. IMPRESSION AND PLAN: An 81-year-old man who presents with fatigue, hypotension, lactic acidosis. 1. Fatigue. Suspect that this is due to dehydration in the setting of newly instituted beta blocke r. Will treat and follow. Will have him work with Physical Therapy. 2. Hypotension with lactic acidosis. I suspect that this is driven by hypovolemia in the setting o f antihypertensive use. Will hold his metoprolol. His blood pressures improved with 2 L in the blayne ency department. Will gently hydrate him overnight. Will recheck a lactate in the morning. 3. Leukocytosis, not finding any evidence at this point for infection. Will follow this and rechec k again in the morning. 4. Question of heparin-induced thrombocytopenia, currently on warfarin anticoagulation. INR is 3 t nic. Will hold tonight and restart warfarin tomorrow. 5. Benign prostatic hypertrophy with urethral stricture. He is not having any problems urinating n ow. 6. Constipation/diarrhea. Will not add a bowel regimen. At this point. CODE STATUS: He would like to be full code, full tube. /[id number]/MODL
[2017-02-12] MEDS ORDERED: HYDROCODONE/APAP 5/325 TAB PO PRN (15:54)
[2017-02-12] MEDS ORDERED: WARFARIN SODIUM 1 MG TAB PO SCH (16:00)
[2017-02-12] MEDS: NS 1,000 ML IV SCH (16:41)
[2017-02-12] MEDS ORDERED: ZOLPIDEM TARTRATE 5 MG TAB PO SCH (21:00)
[2017-02-13 03:56] LABS: % IMMATURE GRANULYOCYTES 0.8 % (0.0-1.1); ABSOLUTE IMMATURE GRANULOCYTES 0.07 10^3/uL (0.00-0.10); ADD DIFF? NO; ADD MORPH? NO; ADD SCAN? NO; ATYPICAL LYMPHOCYTE FLAG 40 (0-99); FRAGMENT RBC FLAG 0 (0-99); HEMATOCRIT 26.7 % (40.0-51.0); HEMOGLOBIN 8.6 g/dL (13.7-17.5); LEFT SHIFT FLG 10 (0-99); LIPEMIA HEMOLYSIS FLAG 80 (0-99); MEAN CELL HEMOGLOBIN 30.3 pg (27.9-34.1); MEAN CELL HEMOGLOBIN CONCENTR. 32.2 g/dL (32.4-36.7); MEAN PLATELET VOLUME 8.8 fL (8.7-11.7); PLATELET CLUMPS FLAG 0 (0-99); PLATELET COUNT 323 10^3/uL (150-400); RED BLOOD CELL COUNT 2.84 10^6/uL (4.40-6.38); RED CELL DISTRIBUTION WIDTH 14.9 % (11.5-15.2)
[2017-02-13 04:06] LABS: INR 2.97 (0.83-1.16); PROTIME(PATIENT) 31.3 SEC (12.0-15.0)
[2017-02-13] MEDS: NS 1,000 ML IV SCH (06:33)
[2017-02-13] MEDS ORDERED: ASPIRIN 81 MG CHEWABLE TAB PO SCH (09:00)
[2017-02-13] MEDS ORDERED: PANTOPRAZOLE SODIUM 40 MG TAB PO SCH (09:00)
[2017-02-13 11:16] VITALS: BP 130/67; PULSE 88; RESP 23; TEMP 97.9; O2SAT 94
--- NOTE | 2017-02-13 11:20 | GDS ---
[f rep st] DISCHARGE SUMMARY FINAL DIAGNOSES: 1. Dehydration. 2. Recent ascending thoracic aortic aneurysm, status post repair. 3. Atrioventricular block, status post pacemaker. 4. Leukocytosis. 5. Hypotension. 6. Fatigue. HOSPITAL COURSE: This is an 81-year-old man who presented after being sent to the ED by Dr. Pelaez's office for hypotension. He had recently had a thoracic aneurysm repaired. He was initially hypote nsive in the emergency department with a lactate of 3.0. He underwent fluid resuscitation and holdi ng of his metoprolol. Blood pressure is normal. He feels much better. No weakness or fatigue at this point. He will be discharged in stable condition. We will hold his metoprolol on discharge. Currently wor radha on coordinating followup with him, including INR checks as well as cardiac rehab and follow up with Dr. Pelaez. At home, he will monitor his blood pressure and call Dr. Pelaez's office if the syst olic goes above 140 or diastolic is above 90. /[id number]/MODL
[2017-02-13] MEDS ORDERED: WARFARIN SODIUM 2 MG TAB PO SCH (16:00)
== END 2017-02-13 14:08 | disposition home or self-care (01) ==
LOC: INTOOBSV 13:29 → F2W 16:04
PROVIDERS: ADMIT Student in an Organized Health Care Education/Training Program; ATTEND Student in an Organized Health Care Education/Training Program
DX: E86.0 Dehydration (principal); D72.829 Elevated white blood cell count, unspecified; I95.9 Hypotension, unspecified; R53.83 Other fatigue; Z86.79 Personal history of other diseases of the circulatory system; Z95.0 Presence of cardiac pacemaker
CPT/HCPCS: 96360; 96361; 97161; 97165; 99285; G0378; G8978; G8979; G8980; G8987; G8988; G8989

== ENCOUNTER → 2017-02-12 | Outpatient (CLI) | payer OTHER, MEDICARE | LOC: FIMAGING 09:05 | PROVIDERS: ATTEND Physician Assistant Surgical | DX: J90 Pleural effusion, not elsewhere classified (principal); J98.11 Atelectasis ==

== ENCOUNTER 2017-02-14 10:35 | Emergency (ER) | payer OTHER, MEDICARE ==
--- NOTE | 2017-02-14 11:06 | EDPHY ---
H & P Stated Complaint: D/C yesterday for same c/o of fever,abnl vs; 3 wks post op aortic aneursym Time Seen by Provider: 02/14/17 10:45 HPI/ROS: CHIEF COMPLAINT: Referred to ED for hypotension, low-grade fever and tachycardia HISTORY OF PRESENT ILLNESS: The patient was referred to the emergency department from the office of his cardiothoracic surgeon with reported hypotension, low-grade fever and tachycardia. The patient has recently undergone repair of a thoracic aortic aneurysm in the end of December. The patient had been admitted to the hospital for symptoms consistent with dehydration 2 days ago. He was discharged home yesterday. During the workup over that hospitalization, the patient had an unremarkable urinalysis and cultures. The patient did have his metoprolol held during that hospitalization. He felt up today with his wood heel flap inserter with the symptoms. The patient denies any acute cough, rash or significant abdominal pain. He has had some intermittent neck pain. He denies chest pain or shortness of breath. REVIEW OF SYSTEMS: A comprehensive 10 point review of systems is otherwise negative aside from elements mentioned in the history of present illness. Source: Patient Exam Limitations: No limitations - Personal History Current Tetanus Diphtheria and Acellular Pertussis (TDAP): Yes - Medical/Surgical History Hx Asthma: No Hx Chronic Respiratory Disease: No Hx Diabetes: No Hx Cardiac Disease: Yes Hx Renal Disease: No Hx Cirrhosis: No Hx Alcoholism: No Hx HIV/AIDS: No Hx Splenectomy or Spleen Trauma: No Other PMH: Pre syncopal events, dyslipidemia/ pacemaker. aortic aneurysm repair 01/2017 - Social History Smoking Status: Former smoker - Physical Exam Exam: General Appearance: Alert, no distress Eyes: Pupils equal and round no pallor or injection ENT, Mouth: Mucous membranes moist Respiratory: There are no retractions, lungs are clear to auscultation, sternotomy scar noted Cardiovascular: Regular rate and rhythm Gastrointestinal: Abdomen is soft and nontender, no masses, bowel sounds normal Neurological: A&O, normal motor function, normal sensory exam, normal cranial nerves Skin: Surgical incision clean dry and intact Musculoskeletal: Neck is supple nontender Extremities: symmetrical, full range of motion Constitutional: Initial Vital Signs Temperature (C) 36.7 C 02/14/17 10:36 Heart Rate 96 02/14/17 10:36 Respiratory Rate 18 02/14/17 10:36 Blood Pressure 119/78 02/14/17 10:36 O2 Sat (%) 98 02/14/17 10:36 O2 Delivery Mode Room Air Allergies/Adverse Reactions: No Known Allergies Allergy (Verified 02/14/17 10:35) Home Medications: Medication Instructions Recorded Cholecalciferol Vit D3 [Vitamin D3 1,000 units PO DAILY 01/22/17 (*)] Acetaminophen [Tylenol 325mg (*)] 650 mg PO DAILY PRN 02/12/17 Aspirin [Aspirin 81mg (*)] 81 mg PO DAILY 02/12/17 Hydrocodone/APAP 5/325 [[place] 1 tab PO HS PRN 02/12/17 5/325 (*)] Pantoprazole Sodium [Protonix 40mg 40 mg PO DAILY 02/12/17 (*)] Warfarin Sodium [Coumadin 1MG (*)] 1 mg PO Q2D 02/12/17 Warfarin Sodium [Coumadin 2MG (*)] 2 mg PO Q2D 02/12/17 Zolpidem Tartrate [Ambien 5MG (*)] 10 mg PO HS 02/12/17 Medical Decision Making - Diagnostics EKG Interpretation: EKG: Complete interpretation has been separately recorded in the [facility] archive. Summary impression: Sinus rhythm, rate 97 Imaging Results: Imaging Impressions Chest X-Ray 02/14/17 11:06 Impression: Interval slight increase in left lower lobe atelectasis, otherwise unchanged from February 12, 2017. ED Course/Re-evaluation: I reviewed the results of the patient's past medical records including his hospitalization and discharge summary from yesterday. The patient did receive a L of IV fluids. The patient's EKG demonstrates a sinus rhythm. Given his bouts of hypotension tachycardia I did obtain an echocardiogram which demonstrates a small pericardial effusion without tamponade physiology. The patient's hematocrit is increasing from his prior level. Consultation was made with the patient's cardiothoracic surgeon Arslan Pelaez who evaluated the patient in the ED. At this point time we do not feel the effusion once drainage. The patient will increase his fluid intake this weekend. He will follow up with Dr. Arlsan Pelaez on Saturday for recheck. He understands return to the ED this weekend should he have any symptoms of syncope , lightheadedness, persistent hypotension and tachycardia. The patient had no growth noted on blood cultures obtained 2 days ago. His urine analysis demonstrated no evidence of an infection. Differential Diagnosis: Differential diagnosis considered includes arrhythmia, critical anemia, dehydration, renal failure, cardiac tamponade, pericardial effusion - Data Points Laboratory Results: Laboratory Results 02/14/17 11:28 02/14/17 11:28 02/14/17 02/14/17 02/14/17 11:28 11:28 11:28 WBC 10.47 10^3/uL H 10^3/uL (3.80-9.50) RBC 3.49 10^6/uL L 10^6/uL (4.40-6.38) Hgb 10.7 g/dL L g/dL (13.7-17.5) Hct 32.9 % L % (40.0-51.0) MCV 94.3 fL fL (81.5-99.8) MCH 30.7 pg pg (27.9-34.1) MCHC 32.5 g/dL g/dL (32.4-36.7) RDW 14.9 % % (11.5-15.2) Plt Count 387 10^3/uL D 10^3/uL (150-400) MPV 8.7 fL fL (8.7-11.7) Neut % (Auto) 78.6 % H % (39.3-74.2) Lymph % (Auto) 10.3 % L % (15.0-45.0) [place] % (Auto) 9.2 % % (4.5-13.0) Eos % (Auto) 0.7 % % (0.6-7.6) Baso % (Auto) 0.4 % % (0.3-1.7) Nucleat RBC Rel Count 0.0 % % (0.0-0.2) Absolute Neuts (auto) 8.24 10^3/uL H 10^3/uL (1.70-6.50) Absolute Lymphs (auto) 1.08 10^3/uL 10^3/uL (1.00-3.00) Absolute Monos (auto) 0.96 10^3/uL H 10^3/uL (0.30-0.80) Absolute Eos (auto) 0.07 10^3/uL 10^3/uL (0.03-0.40) Absolute Basos (auto) 0.04 10^3/uL 10^3/uL (0.02-0.10) Absolute Nucleated RBC 0.00 10^3/uL 10^3/uL (0-0.01) Immature Gran % 0.8 % % (0.0-1.1) Immature Gran # 0.08 10^3/uL 10^3/uL (0.00-0.10) PT 23.6 SEC H SEC (12.0-15.0) INR 2.09 H (0.83-1.16) VBG Lactic Acid Sodium 137 mEq/L mEq/L (134-144) Potassium 3.8 mEq/L mEq/L (3.5-5.2) Chloride 104 mEq/L mEq/L (97-110) Carbon Dioxide 24 mEq/l mEq/l (22-31) Anion Gap 9 mEq/L mEq/L (8-16) BUN 10 mg/dL mg/dL (7-23) Creatinine 1.0 mg/dL mg/dL (0.7-1.3) Estimated GFR > 60 Glucose 108 mg/dL H mg/dL (70-100) Calcium 8.8 mg/dL mg/dL (8.5-10.4) 02/14/17 11:28 WBC RBC Hgb Hct MCV MCH MCHC RDW Plt Count MPV Neut % (Auto) Lymph % (Auto) [place] % (Auto) Eos % (Auto) Baso % (Auto) Nucleat RBC Rel Count Absolute Neuts (auto) Absolute Lymphs (auto) Absolute Monos (auto) Absolute Eos (auto) Absolute Basos (auto) Absolute Nucleated RBC Immature Gran % Immature Gran # PT INR VBG Lactic Acid 2.0 mmol/L D mmol/L (0.7-2.1) Sodium Potassium Chloride Carbon Dioxide Anion Gap BUN Creatinine Estimated GFR Glucose Calcium Medications Given: Discontinued Medications Sodium Chloride (Ns) 500 mls @ 1,000 mls/hr IV ONCE ONE PRN Reason: Protocol Stop: 02/14/17 12:47 Last Admin: 02/14/17 12:39 Dose: 500 mls Departure - Departure Disposition: Home, Routine, Self-Care Clinical Impression: S/P thoracic aortic aneurysm repair, Dehydration, Pericardial effusion Condition: Good Instructions: Dehydration (ED) Additional Instructions: 1. Please return to the emergency department this weekend for any worsening symptoms, lightheadedness, persistent low blood pressure or other concerns. 2. Please follow up as scheduled with Dr. Childress on Saturday. Referrals: Arslan Pelaez DO [Doctor of Osteopathy] - As per Instructions
--- NOTE | 2017-02-14 11:23 | CPEKG ---
Heart Rate: 97 RR Interval: 619 P-R Interval: 172 QRSD Interval: 76 QT Interval: 344 QTC Interval: 437 P [place]: 52 QRS [place]: 47 T Wave [place]: 57 EKG Severity - NORMAL ECG - EKG Impression: SINUS RHYTHM Electronically Signed By: Chago Medellin 14-Feb-2017 11:27:30
[2017-02-14 11:37] LABS: % IMMATURE GRANULYOCYTES 0.8 % (0.0-1.1); ABSOLUTE IMMATURE GRANULOCYTES 0.08 10^3/uL (0.00-0.10); ADD DIFF? NO; ADD MORPH? NO; ADD SCAN? NO; ATYPICAL LYMPHOCYTE FLAG 40 (0-99); FRAGMENT RBC FLAG 0 (0-99); HEMATOCRIT 32.9 % (40.0-51.0); HEMOGLOBIN 10.7 g/dL (13.7-17.5); LEFT SHIFT FLG 10 (0-99); LIPEMIA HEMOLYSIS FLAG 80 (0-99); MEAN CELL HEMOGLOBIN 30.7 pg (27.9-34.1); MEAN CELL HEMOGLOBIN CONCENTR. 32.5 g/dL (32.4-36.7); MEAN CELL VOLUME 94.3 fL (81.5-99.8); MEAN PLATELET VOLUME 8.7 fL (8.7-11.7); PLATELET CLUMPS FLAG 10 (0-99); PLATELET COUNT 387 10^3/uL (150-400); RED BLOOD CELL COUNT 3.49 10^6/uL (4.40-6.38); RED CELL DISTRIBUTION WIDTH 14.9 % (11.5-15.2)
[2017-02-14 11:47] LABS: INR 2.09 (0.83-1.16); PROTIME(PATIENT) 23.6 SEC (12.0-15.0)
[2017-02-14 11:51] LABS: ANION GAP 9 mEq/L (8-16); CALCIUM 8.8 mg/dL (8.5-10.4); CARBON DIOXIDE 24 mEq/l (22-31); CHLORIDE 104 mEq/L (97-110); GLOMERULAR FILTRATION RATE > 60; GLUCOSE 108 mg/dL (70-100); POTASSIUM 3.8 mEq/L (3.5-5.2); SODIUM 137 mEq/L (134-144)
[2017-02-14] MEDS ORDERED: NS 500 ML IV ONE (12:18)
--- NOTE | 2017-02-14 12:18 | ECHO ---
[id number] + + [phone] : : [place] [address] : : [phone] + + Adult Echocardiographic Report + ------+ :Name: BECKY SHAW Dinora Date: 02/14/2017 11:40 AM : : Hospital Admission Number: [id number] Locati on: ER: :: 1935 Gender: Male Height: 66 in : :Age: 81 yrs Race: Weight: 155 lb : :Reason For Study: Hypotension/tachycardia following aortic : :repair BSA: 1.8 meter s2 : :History: Aortic aneurym : + ------+ MMode/2D Measurements \T\ Calculations IVSd: 0.71 cm LVIDd: 4.2 cm FS: 29.5 % Ao root diam: 3.6 cm LVPWd: 1.0 cm LVIDs: 3.0 cm EDV(Teich): 80.4 ml LA dimension: 3.1 cm ESV(Teich): 34.7 ml EF(Teich): 56.8 % Normal Measurement Values: + + :LVIDd (3.5-5.7cm) IVSd (0.6-1.1cm) LVPWd (0.6-1.1cm) Aortic Root (2.0-3.7cm)Left Atrium (1.5-4.0cm): :LV Vol(d) (76-115ml) LV Vol(s) (29-48ml) [place]jec Fraction (50-65%)PV [place] (0.6- 1.2m/s) TV [place] (0.4-1.0m/s) : :MV E [place] (0.8-1.0m/s)MV A [place] (0.3-1.0m/s)LVOT [place] (0.7-1.2m/s) Asc Ao [place] ( 0.9-1.8m/s) : + + Doppler Measurements \T\ Calculations MV E max [place]: 71.6 cm/sec Ao V2 max: 95.1 cm/sec TR max [place]: 256.0 cm/sec MV A max [place]: 81.4 cm/sec Ao max P.6 mmHg TR max P.2 mmHg MV E/A: 0.88 Ao mean P.0 mmHg RAP systole: 5.0 mmHg Ao V2 mean: 68.9 cm/sec RVSP(TR): 31.2 mmHg Ao V2 VTI: 16.7 cm Left Ventricle The left ventricle is normal in size. There is normal left ventricular wall thickness. The left ventricle is hyperdynamic. No regional wall motion abnormalities noted. Right Ventricle The right ventricle is mildly dilated. The right ventricular systolic function is normal. Atria The left atrial size is normal. Right atrial size is normal. Mitral Valve The mitral valve is normal in structure and function. There is no evidence of mitral valve prolapse. There is no mitral valve stenosis. There is trace mitral regurgitation. Tricuspid Valve Normal tricuspid valve. There is mild tricuspid regurgitation. Right ventricular systolic pressure is normal. Aortic Valve The aortic valve is trileaflet. The aortic valve opens well. There is no aortic stenosis. Trace to mild aortic regurgitation. Pulmonic Valve The pulmonic valve is normal in structure and function. There is no pulmonic valvular regurgitation. Great Vessels The aortic root is normal size. Pericardium/Pleural Small pericardial effusion. There are no echocardiographic indications of cardiac tamponade. Conclusion A complete two-dimensional transthoracic echocardiogram was performed (2D, M-mode, Doppler and color flow Doppler). The left ventricle is hyperdynamic. Normal LV wall motion There is trace mitral regurgitation. There is mild tricuspid regurgitation. Right ventricular systolic pressure is normal. Trace to mild aortic regurgitation. Small pericardial effusion. No echocardiographic evidence of cardiac tamponade. no prior echo Final Reading Physician: Dr Blossom Rios electronically signed on 02/14/2017 12:16 PM Ordering Physician: Chago Medellin Performed By: Zari Lopez, DARIEN
[2017-02-14 13:31] VITALS: TEMP 98.2
[2017-02-14 14:11] VITALS: BP 127/69; PULSE 90; RESP 16; O2SAT 99
== END 2017-02-14 14:16 | disposition home or self-care (01) ==
DX: J90 Pleural effusion, not elsewhere classified (principal); E86.0 Dehydration; Z79.01 Long term (current) use of anticoagulants; Z79.82 Long term (current) use of aspirin; Z87.891 Personal history of nicotine dependence; Z95.0 Presence of cardiac pacemaker; Z95.828 Presence of other vascular implants and grafts

== ENCOUNTER 2017-02-15 14:52 | Emergency (ER) | payer OTHER, MEDICARE ==
[2017-02-15 15:08] VITALS: TEMP 97.5
[2017-02-15] MEDS ORDERED: NS 1,000 ML IV ONE (16:20)
--- NOTE | 2017-02-15 16:20 | EDPHY ---
H & P Time Seen by Provider: 02/15/17 15:15 HPI/ROS: Chief complaint. Headache, hypotension, altered mental status HPI. 81-year-old male with thoracic aortic aneurysm repair about 2 weeks ago referred today by his PCP is on office visit he was weak and had low blood pressure. He also complains of headache that had been present prior to the discovery of his thoracic aortic aneurysm and prompted the workup. Apparently the headache was gone for 2 weeks after his surgery and now present today. He was admitted last week for dehydration and elevated lactate. Cultures were negative and there was apparently no sign or evidence of infection. He was seen in the emergency department yesterday and had workup including an echocardiogram which showed a small pericardial effusion. Dr. maddie coats, his cardiothoracic surgeon, saw him in the ED yesterday and felt things were stable. He again today he had apparently some confusion some weakness and decreased blood pressure at his physician's office and was referred to the ED. He has no chest pain or shortness of breath. No fever. ROS Constitutional. no fever/chills, no weakness Eyes. no problems with vision ENT. no sore throat, no nasal drainage Cardiovascular. no chest pain Respiratory. no shortness of breath, no cough Abdominal. no abdominal pain, no nausea/vomiting, no diarrhea . no problems urinating MS. no calf pain/swelling, no neck/back pain, no joint pain Skin. no rash Lymph. no swollen glands Neuro. Headache and maybe altered mental status at the physician's office Past Medical/Surgical History: Thoracic aortic aneurysm repair, dyslipidemia, pacemaker Social History: , nonsmoker, no alcohol Smoking Status: Former smoker Physical Exam: General Appearance: Alert well-developed male moderate distress vital signs show blood pressure 97/60 Eyes: Pupils equal and round no pallor or injection. ENT, Mouth: Mucous membranes are moist. Respiratory: There are no retractions, lungs are clear to auscultation. Cardiovascular: Regular rate and rhythm. Gastrointestinal: Abdomen is soft and nontender, no masses, bowel sounds normal. Neurological: Awake and alert, sensory and motor exams grossly normal. Skin: Warm and dry, no rashes. Musculoskeletal: Neck is supple nontender. Extremities symmetrical, full range of motion. Psychiatric: Patient is oriented X 3, there is no agitation. Constitutional: Initial Vital Signs Temperature (C) 36.4 C 02/15/17 15:00 Heart Rate 91 02/15/17 15:00 Respiratory Rate 18 02/15/17 15:00 Blood Pressure 97/60 L 02/15/17 15:00 O2 Sat (%) 95 02/15/17 15:00 O2 Delivery Mode Nasal Cannula O2 (L/minute) 2 Allergies/Adverse Reactions: No Known Allergies Allergy (Verified 02/15/17 15:02) Home Medications: Medication Instructions Recorded Cholecalciferol Vit D3 [Vitamin D3 1,000 units PO DAILY 01/22/17 (*)] Acetaminophen [Tylenol 325mg (*)] 650 mg PO DAILY PRN 02/12/17 Aspirin [Aspirin 81mg (*)] 81 mg PO DAILY 02/12/17 Hydrocodone/APAP 5/325 [[place] 1 tab PO HS PRN 02/12/17 5/325 (*)] Pantoprazole Sodium [Protonix 40mg 40 mg PO DAILY 02/12/17 (*)] Warfarin Sodium [Coumadin 1MG (*)] 1 mg PO Q2D 02/12/17 Warfarin Sodium [Coumadin 2MG (*)] 2 mg PO Q2D 02/12/17 Zolpidem Tartrate [Ambien 5MG (*)] 10 mg PO HS 02/12/17 Medical Decision Making - Diagnostics Imaging Results: Imaging Impressions Head CT 02/15/17 16:20 Impression: Negative for acute abnormality; specifically, no intracranial hemorrhage. Results called and discussed with CAROL SMALL on 02/15/2017 at 17:45 Head CTA 02/15/17 16:20 Impression: Negative CT angiography of the neck with no arterial occlusive disease above the clavicles identified. CT Angiography of the Head With Attention to the [place] Reason for examination: Headache in an 81-year-old male with a history of thoracic aortic aneurysm repair. Technique: A spiral acquisition was performed from the base of the brain to the vertex during rapid intravenous administration of 150 mL of Isovue-370. This contrast volume was utilized for evaluation of the chest, neck and head. Axial images are obtained at 0.6 mm thickness and the examination is reviewed on the workstation in multiple window and level settings. Sagittal and coronal reformats are performed and three-dimensional reformations are performed by the radiologist on the workstation. Dose reduction techniques were utilized. Findings: There is excellent arterial opacification. The great vessels at the base of the brain are normal in appearance. The anterior and middle cerebral arteries appear normal. The [place] is intact with both anterior and posterior communicating arteries identified. The basilar artery as well as posterior cerebral arteries are normal. No regions of stenosis are identified. No hemorrhages are seen and no vascular malformations are identified. No areas of abnormal perfusion are identified and there are no findings to suggest cortical ischemia. Impression: Normal CT angiography of the head with attention to the great vessels of the [place]. CT angiography of the chest is reported separately. Note: All stenoses are calculated using NASCET Criteria. Results called and discussed with CAROL SMALL on 02/15/2017 at 18:14 Neck CTA 02/15/17 16:20 Impression: Negative CT angiography of the neck with no arterial occlusive disease above the clavicles identified. CT Angiography of the Head With Attention to the [place] Reason for examination: Headache in an 81-year-old male with a history of thoracic aortic aneurysm repair. Technique: A spiral acquisition was performed from the base of the brain to the vertex during rapid intravenous administration of 150 mL of Isovue-370. This contrast volume was utilized for evaluation of the chest, neck and head. Axial images are obtained at 0.6 mm thickness and the examination is reviewed on the workstation in multiple window and level settings. Sagittal and coronal reformats are performed and three-dimensional reformations are performed by the radiologist on the workstation. Dose reduction techniques were utilized. Findings: There is excellent arterial opacification. The great vessels at the base of the brain are normal in appearance. The anterior and middle cerebral arteries appear normal. The [place] is intact with both anterior and posterior communicating arteries identified. The basilar artery as well as posterior cerebral arteries are normal. No regions of stenosis are identified. No hemorrhages are seen and no vascular malformations are identified. No areas of abnormal perfusion are identified and there are no findings to suggest cortical ischemia. Impression: Normal CT angiography of the head with attention to the great vessels of the [place]. CT angiography of the chest is reported separately. Note: All stenoses are calculated using NASCET Criteria. Results called and discussed with CAROL SMALL on 02/15/2017 at 18:14 Chest/Thorax CTA 02/15/17 16:21 Impression: 1. No acute process. Specifically, no endoleak or pseudoaneurysm. 2. Surgical implantation of arch vessels, featuring bifurcated graft arising first from the ascending aortic graft, supplying left common carotid and left subclavian arteries is unchanged. 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 3. Significantly decreased right pleural effusion and minimally improved left pleural effusion. 4. Improving bibasilar atelectasis. 5. New trace pericardial effusion. Findings discussed with Emergency Department physician, Carol Small on 2016 at [address] reviewed by me and discussed with Dr. Plascencia is normal CT angio of the chest this is reviewed by me and discussed with Dr. Noriega is negative. The graft looks fine. No change from previous study January 30. Improved pleural effusions. CT angiogram head and neck reviewed by me and discussed with Dr. Plascencia is nonacute. Procedures: IV normal saline, monitor. Tylenol for headache I have extensively reviewed the patient's old records. He had a T CT angiogram of his neck on January 06 which showed narrowing though not flow limiting lesion of the right internal carotid artery. Otherwise workup was unremarkable other than is aneurysm. I have tried to discussed the case with Dr. Pelaez and have spoken twice with [facility] level's covering for him at [facility]. ED Course/Re-evaluation: 5:45 p.m. blood pressure is 153/88 Re-evaluation 6:30 p.m.--patient is stable. The patient, his daughters and and I discussed imaging study results, laboratory evaluation. I offered admission as the patient has been fairly symptomatic but the etiology is not clear. He expresses understanding and risks and we discussed risks and benefits. He would like to go home. He is encouraged to return over the weekend for any worsening symptoms and encouraged to follow up on Saturday with Dr. pelaez Differential Diagnosis: I have considered worsening pericardial effusion, pleural effusion, intracranial bleeding because of his headache, injury to the great vessels of the neck coming off the graft that had to be reattached. I really cannot find any cause of his labile blood pressure or headache. His headache is resolved at this point and he is neurologically. - Data Points Laboratory Results: Laboratory Results 02/15/17 15:40 02/15/17 15:40 02/15/17 02/15/17 02/15/17 15:40 15:40 15:40 WBC 7.99 10^3/uL 10^3/uL (3.80-9.50) RBC 3.05 10^6/uL L 10^6/uL (4.40-6.38) Hgb 9.4 g/dL L g/dL (13.7-17.5) Hct 28.3 % L % (40.0-51.0) MCV 92.8 fL fL (81.5-99.8) MCH 30.8 pg pg (27.9-34.1) MCHC 33.2 g/dL g/dL (32.4-36.7) RDW 15.0 % % (11.5-15.2) Plt Count 336 10^3/uL D 10^3/uL (150-400) MPV 9.1 fL fL (8.7-11.7) Neut % (Auto) 70.1 % % (39.3-74.2) Lymph % (Auto) 14.8 % L % (15.0-45.0) [place] % (Auto) 12.8 % % (4.5-13.0) Eos % (Auto) 1.0 % % (0.6-7.6) Baso % (Auto) 0.4 % % (0.3-1.7) Nucleat RBC Rel Count 0.0 % % (0.0-0.2) Absolute Neuts (auto) 5.61 10^3/uL 10^3/uL (1.70-6.50) Absolute Lymphs (auto) 1.18 10^3/uL 10^3/uL (1.00-3.00) Absolute Monos (auto) 1.02 10^3/uL H 10^3/uL (0.30-0.80) Absolute Eos (auto) 0.08 10^3/uL 10^3/uL (0.03-0.40) Absolute Basos (auto) 0.03 10^3/uL 10^3/uL (0.02-0.10) Absolute Nucleated RBC 0.00 10^3/uL 10^3/uL (0-0.01) Immature Gran % 0.9 % % (0.0-1.1) Immature Gran # 0.07 10^3/uL 10^3/uL (0.00-0.10) PT 24.9 SEC H SEC (12.0-15.0) INR 2.23 H (0.83-1.16) Sodium 138 mEq/L mEq/L (134-144) Potassium 3.5 mEq/L mEq/L (3.5-5.2) Chloride 104 mEq/L mEq/L (97-110) Carbon Dioxide 23 mEq/l mEq/l (22-31) Anion Gap 11 mEq/L mEq/L (8-16) BUN 10 mg/dL mg/dL (7-23) Creatinine 1.0 mg/dL mg/dL (0.7-1.3) Estimated GFR > 60 Glucose 102 mg/dL H mg/dL (70-100) Calcium 9.1 mg/dL mg/dL (8.5-10.4) Medications Given: Discontinued Medications Acetaminophen (Tylenol) 1,000 mg PO EDNOW ONE Stop: 02/15/17 17:55 Last Admin: 02/15/17 18:04 Dose: 1,000 mg Sodium Chloride (Ns) 1,000 mls @ 0 mls/hr IV ONCE ONE; Wide Open PRN Reason: Protocol Stop: 02/15/17 16:21 Last Admin: 02/15/17 16:35 Dose: 1,000 mls Departure - Departure Disposition: Home, Routine, Self-Care Clinical Impression: Weakness Condition: Good Instructions: Weakness (ED) Additional Instructions: Continue regular medications. The workup is normal today but the cause of blood pressure changes is and headache is not clear. Return for blood pressures greater than 160/100 or less than 90/60 or other worsening symptoms. Recheck on Saturday with Dr. pelaez for further evaluation Referrals: Ml Diez MD [Primary Care Provider] - As per Instructions Arslan Pelaez DO [Doctor of Osteopathy] - 2-3 days without fail
[2017-02-15 16:27] LABS: % IMMATURE GRANULYOCYTES 0.9 % (0.0-1.1); ABSOLUTE IMMATURE GRANULOCYTES 0.07 10^3/uL (0.00-0.10); ADD DIFF? NO; ADD MORPH? NO; ADD SCAN? NO; ATYPICAL LYMPHOCYTE FLAG 40 (0-99); FRAGMENT RBC FLAG 0 (0-99); HEMATOCRIT 28.3 % (40.0-51.0); HEMOGLOBIN 9.4 g/dL (13.7-17.5); LEFT SHIFT FLG 10 (0-99); LIPEMIA HEMOLYSIS FLAG 80 (0-99); MEAN CELL HEMOGLOBIN 30.8 pg (27.9-34.1); MEAN CELL HEMOGLOBIN CONCENTR. 33.2 g/dL (32.4-36.7); MEAN CELL VOLUME 92.8 fL (81.5-99.8); MEAN PLATELET VOLUME 9.1 fL (8.7-11.7); PLATELET CLUMPS FLAG 10 (0-99); PLATELET COUNT 336 10^3/uL (150-400); RED BLOOD CELL COUNT 3.05 10^6/uL (4.40-6.38)
[2017-02-15 16:35] LABS: ANION GAP 11 mEq/L (8-16); CALCIUM 9.1 mg/dL (8.5-10.4); CARBON DIOXIDE 23 mEq/l (22-31); CHLORIDE 104 mEq/L (97-110); GLOMERULAR FILTRATION RATE > 60; GLUCOSE 102 mg/dL (70-100); POTASSIUM 3.5 mEq/L (3.5-5.2); SODIUM 138 mEq/L (134-144)
[2017-02-15 16:36] LABS: INR 2.23 (0.83-1.16); PROTIME(PATIENT) 24.9 SEC (12.0-15.0)
[2017-02-15] MEDS ORDERED: IOPAMIDOL (ISOVUE 370) 100 ML BTL IV ONE ×2 (16:50→16:54)
[2017-02-15] MEDS ORDERED: ACETAMINOPHEN 500 MG TAB PO ONE (17:54)
[2017-02-15 18:50] VITALS: BP 147/78; PULSE 83; RESP 18; O2SAT 100
== END 2017-02-15 18:56 | disposition home or self-care (01) ==
DX: R53.1 Weakness (principal); Z79.01 Long term (current) use of anticoagulants; Z79.82 Long term (current) use of aspirin; Z87.891 Personal history of nicotine dependence; Z95.0 Presence of cardiac pacemaker
CPT/HCPCS: 70450; 70496; 70498; 71275; 96360; 99285; Q9967

== ENCOUNTER → 2017-02-19 | Outpatient (CLI) | payer OTHER, MEDICARE | LOC: FIMAGING 09:05 | PROVIDERS: ATTEND Thoracic Surgery (Cardiothoracic Vascular Surgery) | DX: J90 Pleural effusion, not elsewhere classified (principal); Z98.890 Other specified postprocedural states; Z86.79 Personal history of other diseases of the circulatory system ==

== ENCOUNTER → 2017-02-19 | Outpatient (CLI) | payer OTHER, MEDICARE | LOC: BHFA 08:45 | PROVIDERS: ATTEND Internal Medicine Interventional Cardiology | DX: I31.9 Disease of pericardium, unspecified (principal) ==

== ENCOUNTER → 2017-03-11 | Outpatient (CLI) | payer OTHER, MEDICARE | LOC: FIMAGING 14:26 | PROVIDERS: ATTEND Thoracic Surgery (Cardiothoracic Vascular Surgery) | DX: Z98.890 Other specified postprocedural states (principal); Z86.79 Personal history of other diseases of the circulatory system | CPT/HCPCS: 71250; 71275; Q9967 ==

== ENCOUNTER 2017-03-28 10:35 | Day surgery (SDC) | payer OTHER, MEDICARE ==
[2017-03-28] MEDS ORDERED: LR 1,000 ML IV ONE (11:06)
[2017-03-28] MEDS ORDERED: LIDOCAINE 1% 2 ML INJ ID PRN (11:06)
[2017-03-28] MEDS ORDERED: epHEDrine SULFATE 10 MG/ML SYR ONE (11:09)
--- NOTE | 2017-03-28 12:05 | PDANEPAE ---
ANE Past Medical History - Cardiovascular History Hx Hypertension: No Hx Arrhythmias: Yes Hx Chest Pain: Yes Hx Coronary Artery / Peripheral Vascular Disease: No Hx CHF / Valvular Disease: No Hx Palpitations: No Cardiovascular History Comment: INDIGO RAMÍREZ POST SURGER 12/2016 - Pulmonary History Hx COPD: No Hx Asthma/Reactive Airway Disease: No Hx Recent Upper Respiratory Infection: No Hx Oxygen in Use at Home: Yes Hx Sleep Apnea: No - Neurologic History Hx Cerebrovascular Accident: No Hx Seizures: No Hx Dementia: No - Endocrine History Hx Diabetes: No Hypothyroid: No Hyperthyroid: No Obesity: mild - Renal History Hx Renal Disorders: No - Liver History Hx Hepatic Disorders: No - Neurological & Psychiatric Hx Hx Neurological and Psychiatric Disorders: No - Cancer History Hx Cancer: No - Congenital Disorder History Hx Congenital Disorders: No - GI History Hx Gastrointestinal Disorders: No - Chronic Pain History Chronic Pain: No - Surgical History Prior Surgeries: 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 Pacemaker Model: [id number] Pacemaker Set Rate: 60 Date Pacemaker Last Checked: 01/27/2017 ANE Patient History - Allergies Allergies/Adverse Reactions: No Known Allergies Allergy (Verified 02/15/17 15:02) - Home Medications Home Medications: Cholecalciferol Vit D3 [Vitamin D3 (*)] 1,000 units PO DAILY 01/22/17 [Last Taken 03/27/17 08:00] Acetaminophen [Tylenol 325mg (*)] 650 mg PO DAILY PRN 02/12/17 [Last Taken 03/14] Aspirin [Aspirin 81mg (*)] 81 mg PO DAILY 02/12/17 [Last Taken 03/27/17 08:00] Hydrocodone/APAP 5/325 [[place] 5/325 (*)] 1 tab PO HS PRN 02/12/17 [Last Taken ] Pantoprazole Sodium [Protonix 40mg (*)] 40 mg PO DAILY 02/12/17 [Last Taken 08:00] Warfarin Sodium [Coumadin 1MG (*)] 1 mg PO Q2D 02/12/17 [Last Taken 03/26/17] Warfarin Sodium [Coumadin 2MG (*)] 2 mg PO Q2D 02/12/17 [Last Taken 03/27/17 20: 00] Zolpidem Tartrate [Ambien 5MG (*)] 10 mg PO HS 02/12/17 [Last Taken 02/27/17] Claritin 03/28/17 [Last Taken 03/28/17 08:00] Flonase Nasal [place] 03/28/17 [Last Taken 03/27/17 08:00] Herbals/Supplements -Info Only 03/28/17 [Last Taken 03/28/17 08:00] - NPO status NPO Since - Liquids (Date): 03/27/17 NPO Since - Liquids (Time): 19:00 NPO Since - Solids (Date): 03/27/17 NPO Since - Solids (Time): 19:00 - Smoking Hx Smoking Status: Former smoker - Family Anes Hx Family Hx Anesthesia Complications: N/A ANE Labs/Vital Signs - Vital Signs Blood Pressure: 114/80 Heart Rate: 88 Respiratory Rate: 15 O2 Sat (%): 91 Height: 167.64 cm Weight: 65.771 kg ANE Physical Exam - Airway Neck exam: FROM Mallampati Score: Class 2 Mouth exam: normal dental/mouth exam - Pulmonary Pulmonary: no respiratory distress - Cardiovascular Cardiovascular: regular rate and rhythym - ASA Status ASA Status: III ANE Anesthesia Plan Anesthesia Plan: general endotracheal anesthesia
[2017-03-28] MEDS ORDERED: PROPOFOL 200 MG/20 ML VIAL ONE ×2 (12:11→12:40)
[2017-03-28] MEDS ORDERED: fentaNYL 100 MCG/2 ML INJ ONE ×2 (12:12→12:39)
[2017-03-28] MEDS ORDERED: ROCURONIUM 50 MG/5 ML VIAL ONE (12:15)
[2017-03-28] MEDS ORDERED: LIDOCAINE 2% 5 ML SDV ONE (12:15)
[2017-03-28] MEDS ORDERED: SUGAMMADEX SODIUM 200 MG/2 ML VIAL IVP ONE (12:45)
[2017-03-28] MEDS ORDERED: fentaNYL 100 MCG/2 ML INJ IVP PRN (13:16)
[2017-03-28] MEDS ORDERED: LABETALOL HCL 50 MG/10 ML SYR IVP PRN (13:16)
[2017-03-28] MEDS ORDERED: ONDANSETRON 4 MG/2 ML VIAL IVP PRN (13:16)
[2017-03-28] MEDS ORDERED: LR 500 ML IV PRN (13:16)
[2017-03-28] MEDS ORDERED: NALOXONE HCL 0.4 MG/ML INJ IVP PRN (13:16)
--- NOTE | 2017-03-28 13:16 | POSTANESTH ---
Post Anesthetic Evaluation Cardiovascular Status: Normal, Stable Respiratory Status: Normal, Stable Level of Consciousness/Mental Status: Mildly Sleepy, Arousable Pain Control: Adequate, Prn Tx Ordered Nausea/Vomiting Control: Adequate, Prn Tx Ordered Complications Possibly Related to Anesthesia: None Noted
[2017-03-28 13:54] VITALS: RESP 16
[2017-03-28 14:07] VITALS: PULSE 73; TEMP 97.9
[2017-03-28 14:49] VITALS: BP 134/74; O2SAT 97
== END 2017-03-28 14:48 | disposition home or self-care (01) ==
LOC: FSGY 10:35
PROVIDERS: ATTEND Otolaryngology
PROC: 3E0D7GC Introduction of Other Therapeutic Substance into Mouth and Pharynx, Via Natural or Artificial Opening (ICD-10-PCS; principal; 2017-03-28 12:00)
DX: J38.01 Paralysis of vocal cords and larynx, unilateral (principal); R49.0 Dysphonia
CPT/HCPCS: C1878; J2704; J3010

== ENCOUNTER 2017-09-20 06:58 | Day surgery (SDC) | payer OTHER, MEDICARE ==
[2017-09-20] MEDS ORDERED: LR 1,000 ML IV ONE (07:24)
--- NOTE | 2017-09-20 08:44 | PDANEPAE ---
ANE History of Present Illness vocal cord filler ANE Past Medical History - Cardiovascular History Hx Hypertension: No Hx Arrhythmias: Yes Hx Chest Pain: Yes Hx Coronary Artery / Peripheral Vascular Disease: No Hx CHF / Valvular Disease: No Hx Palpitations: No Cardiovascular History Comment: ATRAIL FIB POST SURGER 12/2016 - Pulmonary History Hx COPD: No Hx Asthma/Reactive Airway Disease: No Hx Recent Upper Respiratory Infection: No Hx Oxygen in Use at Home: No Hx Sleep Apnea: Yes Sleep Apnea Screening Result - Last Documented: Positive Pulmonary History Comment: Pt uses CPAP for SULTANA at home w/o O2 bleed-in. Instructed to Bring CPAP DOS. - Neurologic History Hx Cerebrovascular Accident: No Hx Seizures: No Hx Dementia: No - Endocrine History Hx Diabetes: No - Renal History Hx Renal Disorders: No - Liver History Hx Hepatic Disorders: No - Neurological & Psychiatric Hx Hx Neurological and Psychiatric Disorders: No - Cancer History Hx Cancer: No - Congenital Disorder History Hx Congenital Disorders: No - GI History Hx Gastrointestinal Disorders: Yes Gastrointestinal History Comment: GERD - Chronic Pain History Chronic Pain: No - Surgical History Prior Surgeries: Pacemaker placed 01/04/2017. 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 Pacemaker Mode: DDDR Pacemaker Set Rate: 60 Date Pacemaker Last Checked: 01/27/2017 ANE Patient History - Allergies Allergies/Adverse Reactions: No Known Allergies Allergy (Verified 02/15/17 15:02) - Home Medications Home Medications: Cholecalciferol Vit D3 [Vitamin D3 (*)] 1,000 units PO DAILY 01/22/17 [Last Taken 3 Days Ago ~09/17/17] Aspirin [Aspirin 81mg (*)] 81 mg PO DAILY 02/12/17 [Last Taken 3 Days Ago ~09/17] Pantoprazole Sodium [Protonix 40mg (*)] 40 mg PO DAILY 02/12/17 [Last Taken 3 Days Ago ~09/17/17] Warfarin Sodium [Coumadin 1MG (*)] 1 mg PO Q2D 02/12/17 [Last Taken 03/26/17] Warfarin Sodium [Coumadin 2MG (*)] 2 mg PO Q2D 02/12/17 [Last Taken 09/19/17 20: 00] Herbals/Supplements -Info Only 03/28/17 [Last Taken 3 Days Ago ~09/17/17] Ranitidine HCl 09/17/17 [Last Taken 09/19/17 20:00] - NPO status NPO Status: no food or drink >8 hours NPO Since - Liquids (Date): 09/20/17 NPO Since - Liquids (Time): 05:30 NPO Since - Solids (Date): 09/19/17 NPO Since - Solids (Time): 19:00 - Anes Hx Anes Hx: no prior problems - Smoking Hx Smoking Status: Former smoker - Alcohol Use Alcohol Use: Occasionally (2-3/day) - Family Anes Hx Family Anes Hx: none Family Hx Anesthesia Complications: N/A ANE Labs/Vital Signs - Vital Signs Vital Signs: reviewed preoperatively; see RN documention for details Blood Pressure: 141/77 Heart Rate: 61 Respiratory Rate: 16 O2 Sat (%): 92 Height: 167.64 cm Weight: 69.853 kg ANE Physical Exam - Airway Neck exam: FROM Mallampati Score: Class 2 Mouth exam: normal dental/mouth exam - Pulmonary Pulmonary: no respiratory distress - Cardiovascular Cardiovascular: regular rate and rhythym - ASA Status ASA Status: III ANE Anesthesia Plan Anesthesia Plan: general endotracheal anesthesia
[2017-09-20] MEDS ORDERED: PROPOFOL 200 MG/20 ML VIAL ONE (08:47)
[2017-09-20] MEDS ORDERED: LIDOCAINE 2% 100 MG/5 ML SYR ONE (08:47)
[2017-09-20] MEDS ORDERED: fentaNYL 100 MCG/2 ML INJ ONE (08:47)
[2017-09-20] MEDS ORDERED: DEXAMETHASONE 4 MG/ML VIAL ONE (08:48)
[2017-09-20] MEDS ORDERED: SUGAMMADEX SODIUM 200 MG/2 ML VIAL IVP ONE (08:48)
[2017-09-20] MEDS ORDERED: ONDANSETRON 4 MG/2 ML VIAL ONE (08:48)
[2017-09-20] MEDS ORDERED: ROCURONIUM 50 MG/5 ML VIAL ONE (08:48)
--- NOTE | 2017-09-20 09:07 | PDHPUP ---
History & Physical Update H&P update statement: This history and physical update is based on an assessment of the patient which was completed after admission or registration (within 24 hours), but prior to the surgery/procedure. H&P update: H&P reviewed & patient examined, no change in patient's condition since H&P completed
[2017-09-20] MEDS ORDERED: ESMOLOL HCL 100 MG/10 ML VIAL IV ONE (09:24)
--- NOTE | 2017-09-20 09:50 | POSTOPPROG ---
Post Op Note Date of Operation: 09/20/17 Surgeon: Kamran Garg Anesthesia: GET(General Endotracheal) Pre-op Diagnosis: LEFT Vocal Cord Paralysis Post-op Diagnosis: LEFT Vocal Cord Paralysis Indication: LEFT Vocal Cord Paralysis Procedure: LEFT Vocal Cord Injection Findings: LEFT Vocal Cord Paralysis Inf/Abcess present in the surg proc area at time of surgery?: No Depth: Superfical (Skin SQ) EBL: Minimal Complications: None Specimen(s): None
[2017-09-20] MEDS ORDERED: NALOXONE HCL 0.4 MG/ML INJ IVP PRN ×2 (09:55)
[2017-09-20] MEDS ORDERED: OXYCODONE/APAP 5/325 TAB PO PRN (09:55)
[2017-09-20] MEDS ORDERED: ACETAMINOPHEN 500 MG TAB PO PRN (09:55)
[2017-09-20] MEDS ORDERED: fentaNYL 100 MCG/2 ML INJ IVP PRN (09:55)
--- NOTE | 2017-09-20 09:55 | POSTANESTH ---
Post Anesthetic Evaluation Cardiovascular Status: Normal, Stable Respiratory Status: Normal, Stable Level of Consciousness/Mental Status: Can Participate in Eval Pain Control: Adequate, Prn Tx Ordered Nausea/Vomiting Control: Adequate, Prn Tx Ordered Complications Possibly Related to Anesthesia: None Noted (NSR, will interrogate pacemaker)
[2017-09-20 10:31] VITALS: O2SAT 100
[2017-09-20 10:54] VITALS: PULSE 60; TEMP 97.9
[2017-09-20 12:50] VITALS: BP 131/67; RESP 17
== END 2017-09-20 12:46 | disposition home or self-care (01) ==
LOC: FSGY 06:58
PROVIDERS: ATTEND Otolaryngology
PROC: 0CUV8JZ Supplement Left Vocal Cord with Synthetic Substitute, Via Natural or Artificial Opening Endoscopic (ICD-10-PCS; principal; 2017-09-20 08:30)
DX: J38.01 Paralysis of vocal cords and larynx, unilateral (principal); G47.33 Obstructive sleep apnea (adult) (pediatric); Z95.0 Presence of cardiac pacemaker; K21.9 Gastro-esophageal reflux disease without esophagitis
CPT/HCPCS: C1878; J1100; J2001; J2405; J2704; J3010

== ENCOUNTER → 2017-12-11 | Outpatient (CLI) | payer OTHER, MEDICARE | LOC: FIMAGING 10:40 | PROVIDERS: ATTEND Thoracic Surgery (Cardiothoracic Vascular Surgery) | DX: I71.2 Thoracic aortic aneurysm, without rupture (principal) | CPT/HCPCS: 71275; Q9967 ==

== ENCOUNTER 2017-12-20 12:16 | Day surgery (SDC) | payer OTHER, MEDICARE ==
[2017-12-20] MEDS ORDERED: LR 1,000 ML IV ONE (12:23)
[2017-12-20 13:30] LABS: INR 1.9 (0.83-1.16); PROTIME(PATIENT) 21.9 SEC (12.0-15.0)
[2017-12-20] MEDS ORDERED: OXYMETAZOLINE 30 ML NASAL SPRAY ONE (14:09)
--- NOTE | 2017-12-20 14:26 | PDANEPAE ---
ANE Past Medical History - Cardiovascular History Hx Hypertension: No Hx Arrhythmias: Yes Hx Chest Pain: No Hx Coronary Artery / Peripheral Vascular Disease: Yes Hx CHF / Valvular Disease: No Hx Palpitations: No Cardiovascular History Comment: ATRIAL FIB POST SURG 12/2016. AORTIC ANEURYSM REPAIR - Pulmonary History Hx COPD: No Hx Asthma/Reactive Airway Disease: No Hx Recent Upper Respiratory Infection: No Hx Oxygen in Use at Home: No Hx Sleep Apnea: Yes Sleep Apnea Screening Result - Last Documented: Positive Pulmonary History Comment: Pt uses CPAP for SULTANA at home. Instructed to Bring CPAP DOS. - Neurologic History Hx Cerebrovascular Accident: No Hx Seizures: No Hx Dementia: No - Endocrine History Hx Diabetes: No - Renal History Hx Renal Disorders: No - Liver History Hx Hepatic Disorders: No - Neurological & Psychiatric Hx Hx Neurological and Psychiatric Disorders: No - Cancer History Hx Cancer: No - Congenital Disorder History Hx Congenital Disorders: No - GI History Hx Gastrointestinal Disorders: No Gastrointestinal History Comment: GERD - Other Health History Other Health History: NEG - Chronic Pain History Chronic Pain: No - Surgical History Prior Surgeries: PACEMAKER IMPLANTED. 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 R ELBOW. 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 Date Pacemaker Last Checked: 02/14/2017 ANE Patient History - Allergies Allergies/Adverse Reactions: No Known Allergies Allergy (Verified 02/15/17 15:02) - Home Medications Home Medications: Cholecalciferol Vit D3 [Vitamin D3 (*)] 1,000 units PO DAILY 01/22/17 [Last Taken 12/19/17] Aspirin [Aspirin 81mg (*)] 81 mg PO DAILY 02/12/17 [Last Taken 12/19/17] Pantoprazole Sodium [Protonix 40mg (*)] 40 mg PO DAILY 02/12/17 [Last Taken 3 Days Ago ~09/17/17] Warfarin Sodium [Coumadin 1MG (*)] 1 mg PO Q2D 02/12/17 [Last Taken 12/19/17] Warfarin Sodium [Coumadin 2MG (*)] 2 mg PO Q2D 02/12/17 [Last Taken 12/19/17] Herbals/Supplements -Info Only 03/28/17 [Last Taken 12/19/17] Ranitidine HCl 09/17/17 [Last Taken 09/19/17 20:00] - NPO status NPO Since - Liquids (Date): 12/20/17 NPO Since - Liquids (Time): 00:00 NPO Since - Solids (Date): 12/19/17 NPO Since - Solids (Time): 18:30 - Anes Hx Anes Hx: no prior problems - Smoking Hx Smoking Status: Former smoker - Family Anes Hx Family Hx Anesthesia Complications: N/A ANE Labs/Vital Signs - Vital Signs Blood Pressure: 149/83 Heart Rate: 60 Respiratory Rate: 16 O2 Sat (%): 98 Height: 167.64 cm Weight: 70.307 kg ANE Physical Exam - Airway Neck exam: FROM Mallampati Score: Class 2 - Pulmonary Pulmonary: no respiratory distress, no rales or rhonchi, clear to auscultation - Cardiovascular Cardiovascular: regular rate and rhythym, no murmur, rub, or gallop - ASA Status ASA Status: II ANE Anesthesia Plan Anesthesia Plan: general endotracheal anesthesia
[2017-12-20] MEDS ORDERED: PROMETHAZINE HCL 25 MG/ML INJ IVP PRN (14:38)
[2017-12-20] MEDS ORDERED: NALOXONE HCL 0.4 MG/ML INJ IVP PRN (14:38)
[2017-12-20] MEDS ORDERED: ONDANSETRON 4 MG/2 ML VIAL IVP PRN (14:38)
[2017-12-20] MEDS ORDERED: ACETAMINOPHEN 500 MG TAB PO PRN (14:38)
[2017-12-20] MEDS ORDERED: LR 500 ML IV PRN (14:38)
[2017-12-20] MEDS ORDERED: DEXAMETHASONE 4 MG/ML VIAL IVP PRN (14:38)
[2017-12-20] MEDS ORDERED: HYDROCODONE/APAP 5/325 TAB PO PRN (14:38)
[2017-12-20] MEDS ORDERED: fentaNYL 100 MCG/2 ML INJ IVP PRN (14:38)
--- NOTE | 2017-12-20 15:00 | PDHPUP ---
History & Physical Update H&P update statement: This history and physical update is based on an assessment of the patient which was completed after admission or registration (within 24 hours), but prior to the surgery/procedure. H&P update: H&P reviewed & patient examined
[2017-12-20] MEDS ORDERED: fentaNYL 100 MCG/2 ML INJ ONE (15:01)
[2017-12-20] MEDS ORDERED: SUCCINYLCHOLINE CHLORIDE 200 MG/10 ML SYR IVP ONE (15:05)
[2017-12-20] MEDS ORDERED: ONDANSETRON 4 MG/2 ML VIAL ONE (15:05)
[2017-12-20] MEDS ORDERED: LIDOCAINE 2% 5 ML SDV ONE (15:05)
[2017-12-20] MEDS ORDERED: DEXAMETHASONE 4 MG/ML VIAL ONE ×2 (15:31)
--- NOTE | 2017-12-20 16:17 | POSTOPPROG ---
Post Op Note Date of Operation: 12/20/17 Surgeon: Kamran Garg Anesthesiologist: Jose Alejandro Anesthesia: GET(General Endotracheal) Pre-op Diagnosis: L TVC paralysis Post-op Diagnosis: L TVC paralysis Indication: L TVC paralysis Procedure: Prolaryn Gel Plus Type 1 Injection Laryngoplasty Findings: L TVC paralysis Inf/Abcess present in the surg proc area at time of surgery?: No Depth: Deep Incisional (Fascial) EBL: Minimal
--- NOTE | 2017-12-20 16:37 | POSTANESTH ---
Post Anesthetic Evaluation Cardiovascular Status: Normal, Stable, Similar to Pre-Op Cond Respiratory Status: Normal, Stable, Similar to Pre-op Cond. Level of Consciousness/Mental Status: Can Participate in Eval, Moderately Sleepy Pain Control: Adequate, Prn Tx Ordered Nausea/Vomiting Control: Adequate, Prn Tx Ordered Complications Possibly Related to Anesthesia: None Noted
[2017-12-20 17:46] VITALS: BP 153/96
--- NOTE | 2017-12-29 14:02 | GOP ---
[f rep st] OPERATIVE REPORT DATE OF OPERATION: 12/20/2017 SURGEON: Angella Garg MD ANESTHESIA: General. PREOPERATIVE DIAGNOSIS: Left vocal cord paralysis. POSTOPERATIVE DIAGNOSIS: Left vocal cord paralysis. PROCEDURE PERFORMED: Direct laryngoscopy with left injection thyroplasty. FINDINGS: Somewhat medialized left vocal fold. SPECIMENS: None. ESTIMATED BLOOD LOSS: Minimal. INDICATIONS: Patient has been followed for a left true vocal fold paralysis. He was previously inje cted and had residual hoarseness. Given his extent of hoarseness, he was determined to be an appropr iate candidate for the above-stated procedure. The risks, benefits, and alternatives to the procedur e were explained at length to the patient who stated he understood and agreed. DESCRIPTION OF PROCEDURE: The patient was brought to the operating room by Anesthesiology and placed on the operating table. Once the appropriate level of anesthesia was achieved, the operating table was turned 90 degrees and the patient was prepped and draped in usual fashion. An upper tooth guard was placed. A Dedo laryngoscope was passed through the oral cavity and oral pharynx and positioned w ith good visualization of the vocal cords. On inspection of the oral cavity, posterior pharynx, and hypopharyngeal and laryngeal structures, there were no masses, ulcerations, or erythema seen. The De do laryngoscope was then suspended on a Fong stand with a Lewy bar. A 0 degree Correia deanna was used with the camera to visualize the cords closely. Cords were palpated with a ball-tipped probe. The h yaluronic acid injectable was prepared and the needle was placed at the arcuate line, at the posterio r 2/3 line of the left vocal cord. The needle was passed to the appropriate angella and injection of 0. 5 mL of the material was injected. There was medialization and plumping of the cord. The needle was removed. The site was inspected for bleeding. None was found. The video endoscope and Dedo laryng oscope were then removed. The patient tolerated the procedure well and was extubated in the operatin g room prior to being transferred in good condition to the postanesthesia care unit. COMPLICATIONS: None. /[id number]/MODL
== END 2017-12-20 17:45 | disposition home or self-care (01) ==
LOC: FSGY 12:16
PROVIDERS: ATTEND Otolaryngology
PROC: 3E0D7GC Introduction of Other Therapeutic Substance into Mouth and Pharynx, Via Natural or Artificial Opening (ICD-10-PCS; principal; 2017-12-20 15:00)
PROC: 0CUV8JZ Supplement Left Vocal Cord with Synthetic Substitute, Via Natural or Artificial Opening Endoscopic (ICD-10-PCS; principal; 2017-12-20 15:00)
DX: J38.01 Paralysis of vocal cords and larynx, unilateral (principal); R49.0 Dysphonia; E78.5 Hyperlipidemia, unspecified; G47.33 Obstructive sleep apnea (adult) (pediatric); K21.9 Gastro-esophageal reflux disease without esophagitis; Z79.01 Long term (current) use of anticoagulants; Z79.82 Long term (current) use of aspirin; Z86.79 Personal history of other diseases of the circulatory system; Z87.891 Personal history of nicotine dependence; Z95.0 Presence of cardiac pacemaker
CPT/HCPCS: C1878; J0171; J0330; J1100; J2405; J3010

== ENCOUNTER → 2018-08-14 | Outpatient (CLI) | payer OTHER, MEDICARE | LOC: BMCIMAGING 10:20 | PROVIDERS: ATTEND Internal Medicine | DX: G50.1 Atypical facial pain (principal); R06.02 Shortness of breath ==